=== PATIENT | male | born 1960 | race Hispanic/Latino ===

== ENCOUNTER 2018-01-11 18:06 | Emergency (ER) | payer OTHER ==
[2018-01-11 18:34] LABS: BASOPHILS % (AUTO) 1.1 % (0.0-5.0); EOSINOPHILS % (AUTO) 2.9 % (0.0-8.0); HEMATOCRIT 25.6 % (42-54); LYMPHOCYTES % (AUTO) 15.1 % (21.0-51.0); MEAN CORPUSCULAR HEMOGLOBIN 28.8 pg (27.0-33.0); MEAN CORPUSCULAR HGB CONC 33.5 g/dL (32.0-36.0); MEAN CORPUSCULAR VOLUME 86.1 fL (79-99); MONOCYTES % (AUTO) 11.1 % (3.0-13.0); NEUTROPHILS % (AUTO) 69.8 % (40.0-77.0); PLATELET COUNT (AUTO) 310 K/uL (130-400); RED BLOOD CELL COUNT(AUTO) 2.97 MIL/uL (4.50-6.20); RED CELL DISTRIBUTION WIDTH 15.8 % (11.0-15.5); WHITE BLOOD COUNT (AUTO) 9.3 K/uL (4.8-10.8)
[2018-01-11 18:55] LABS: ALBUMIN 3.2 g/dL (3.5-5.0); BILIRUBIN,TOTAL 0.3 mg/dL (0.2-1.0); POTASSIUM 4.6 mmol/L (3.5-5.1)
[2018-01-11 18:57] LABS: CREATININE 9.2 mg/dL (0.5-1.5)
[2018-01-11 21:20] LABS: CREATINE KINASE MB 2.1 ng/mL (0.5-3.6)
[2018-01-11 22:19] LABS: APPEARANCE,URINE Clear (CLEAR); BILIRUBIN,URINE Negative (NEGATIVE); COLOR,URINE Yellow (YELLOW); GLUCOSE, URINE (UA) 250 mg/dL (NEGATIVE); KETONES,URINE Negative (NEGATIVE); LEUKOCYTE ESTERASE ,URINE Negative (NEGATIVE); NITRATE,URINE Negative (NEGATIVE); OCCULT BLOOD,URINE Negative (NEGATIVE); PH,URINE 8.5 (5.0-8.0); PROTEIN,URINE 300 (NEGATIVE); UROBILINOGEN,URINE 0.2 mg/dL (0.2-1.0)
[2018-01-11 22:49] LABS: BACTERIA,URINE None Seen /HPF (None Seen); MUCUS,URINE Few LPF (None Seen); RBC,URINE None Seen /HPF (0-1); SQUAMOUS EPITHELIAL CELL,UR Few /HPF (0-2); WBC,URINE None Seen /HPF (0-1)
== END 2018-01-11 22:24 | disposition home or self-care (01) ==
LOC: EDH 18:06
DX: I12.0 Hypertensive chronic kidney disease with stage 5 chronic kidney disease or end stage renal disease (principal); E11.22 Type 2 diabetes mellitus with diabetic chronic kidney disease; N18.6 End stage renal disease; R53.1 Weakness; I25.10 Atherosclerotic heart disease of native coronary artery without angina pectoris; Z79.4 Long term (current) use of insulin; Z99.2 Dependence on renal dialysis
CPT/HCPCS: 36415; 71045; 80053; 81001; 82550; 82553; 84484; 85025; 93005

== ENCOUNTER 2018-11-25 10:50 | Inpatient (IN) | payer OTHER ==
[~2018-11-25] VITALS: Ht 162.6 cm; Wt 104.8 kg
[2018-11-25 11:43] LABS: BASOPHILS % (AUTO) 1.3 % (0.0-5.0); EOSINOPHILS % (AUTO) 1.6 % (0.0-8.0); HEMATOCRIT 36.8 % (42-54); LYMPHOCYTES % (AUTO) 10.1 % (21.0-51.0); MEAN CORPUSCULAR HEMOGLOBIN 31.8 pg (27.0-33.0); MEAN CORPUSCULAR HGB CONC 32.5 g/dL (32.0-36.0); MONOCYTES % (AUTO) 7.5 % (3.0-13.0); NEUTROPHILS % (AUTO) 79.5 % (40.0-77.0); PLATELET COUNT (AUTO) 317 K/uL (130-400); RED BLOOD CELL COUNT(AUTO) 3.76 MIL/uL (4.50-6.20); RED CELL DISTRIBUTION WIDTH 14.9 % (11.0-15.5); WHITE BLOOD COUNT (AUTO) 11.7 K/uL (4.8-10.8)
[2018-11-25 11:54] LABS: ALBUMIN 3.8 g/dL (3.5-5.0); BILIRUBIN,TOTAL 0.5 mg/dL (0.2-1.0); POTASSIUM 5.8 mmol/L (3.5-5.1); TOTAL PROTEIN, SERUM 8.9 g/dL (6.0-8.3)
[2018-11-25 11:59] LABS: CREATININE 10.3 mg/dL (0.5-1.5)
[2018-11-25] MEDS ORDERED: ZOSYN 3.375GM+NS 50ML 50 ML IV ONE (15:08)
[2018-11-25] MEDS ORDERED: VANCOMYCIN 1GM+NS 250ML 250 ML IV ONE ×2 (15:09→22:00)
[2018-11-25] MEDS ORDERED: IOHEXOL 350 MG/ML 100ML INFUS..BTL IV ONE (17:01)
[2018-11-25] MEDS ORDERED: CLONIDINE HCL 0.1 MG TABLET ONE (17:35)
[2018-11-25 20:00] VITALS: BP 109/68
--- NOTE | 2018-11-25 20:00 | NUR ---
ADMISSION. PT ADMITTED INTO ROOM 411. PT IN BED WITH AT BEDSIDE. PT AWAKE, ALERT, RESPONSIVE. PT AND FAMILY ORIENTED TO ROOM, CALL SALVADOR IN REACH, BED IN LOWEST POSITION. Addendum: 11/25/18 at 2237 by RASHEED BUSTILLO RN Amended: Links added.
[2018-11-25] MEDS ORDERED: MAG HYDROX/AL HYDROX/SIMETH ES 30 ML SUSP UDCUP PO PRN (21:00)
[2018-11-25] MEDS ORDERED: SODIUM CHLORIDE 0.9% 10 ML VIAL IVP SCH (21:00)
[2018-11-25] MEDS ORDERED: VANCOMYCIN PROTOCOL PER PHARMACY IV SCH (21:00)
[2018-11-25] MEDS ORDERED: NITROGLYCERIN 0.4 MG SL TAB SL PRN (21:00)
[2018-11-25] MEDS ORDERED: GUAIFENESIN SUGAR-FREE 100 MG/5 ML UDCUP PO PRN (21:00)
[2018-11-25] MEDS ORDERED: HYDROCODONE/ACETAMINOPHEN 5/325 MG TAB PO PRN ×2 (21:00)
[2018-11-25] MEDS ORDERED: CLONIDINE HCL 0.1 MG TABLET PO PRN (21:00)
[2018-11-25] MEDS ORDERED: DIPHENHYDRAMINE HCL 25 MG CAPSULE PO PRN (21:00)
[2018-11-25] MEDS ORDERED: ONDANSETRON HCL 4 MG/2 ML VIAL IVP PRN (21:00)
[2018-11-25] MEDS ORDERED: GUAIFENESIN-DM 200/20 MG 10 ML PO PRN (21:00)
[2018-11-25] MEDS ORDERED: DEXTROSE 50%-WATER 50 ML DISP.SYRIN IV PRN (21:00)
[2018-11-25] MEDS ORDERED: ACETAMINOPHEN 325 MG TAB PO PRN ×2 (21:00)
[2018-11-25] MEDS ORDERED: ZOLPIDEM TARTRATE 5 MG TAB PO PRN (21:00)
[2018-11-25] MEDS ORDERED: DiphenhydrAMINE HCL 50 MG/ML VIAL IVP PRN (21:00)
[2018-11-25] MEDS ORDERED: GLUCAGON 1MG KIT 1 MG ML IM PRN (21:00)
[2018-11-25] MEDS: INSULIN R PO SSI SQ SCH (22:07)
[2018-11-25] MEDS ORDERED: HYDR100T27 PO (23:27)
[2018-11-25] MEDS ORDERED: SIMV20TA6 PO (23:27)
[2018-11-25] MEDS ORDERED: PRAS10TA9 PO (23:27)
[2018-11-25] MEDS ORDERED: PHOSLOC PO (23:27)
[2018-11-25] MEDS ORDERED: PREG75 PO (23:27)
[2018-11-25] MEDS ORDERED: INSU100V SQ (23:27)
[2018-11-25] MEDS ORDERED: LOSA100T58 PO (23:27)
[2018-11-25] MEDS ORDERED: INSU100V12 SQ (23:27)
[2018-11-25] MEDS ORDERED: CARV25TA PO (23:27)
[2018-11-25 23:51] VITALS: BP 129/57
[2018-11-26] MEDS: ZOSYN 3.375GM+NS 50ML 50 ML IV SCH ×2 (03:27→16:48)
[2018-11-26 04:00] VITALS: BP 115/50
[2018-11-26] MEDS: INSULIN R PO SSI SQ SCH ×4 (06:26→21:25)
[2018-11-26 07:38] VITALS: BP 160/67
[2018-11-26] MEDS ORDERED: HEPARIN SODIUM 5000UNIT/ML 1ML VIAL IJ PRN ×2 (09:30)
[2018-11-26] MEDS ORDERED: 0.9% SODIUM CHLORIDE 1000 ML IV BAG IV PRN (09:30)
[2018-11-26] MEDS ORDERED: LIDOCAINE HCL-MPF 1% 2ML VIAL IJ PRN (09:30)
[2018-11-26] MEDS ORDERED: NITROGLYCERIN 0.4 MG SL TAB SL PRN (09:30)
[2018-11-26] MEDS ORDERED: SODIUM CHLORIDE 0.9% 1000ML 1,000 ML IV PRN (09:30)
[2018-11-26] MEDS ORDERED: ACETAMINOPHEN 325 MG TAB PO PRN (09:30)
[2018-11-26 11:20] VITALS: BP 156/80
--- NOTE | 2018-11-26 14:00 | NUR ---
Nutrition intervention: Nutrition notification for Hemodialysis diet education, wounds. Pt admitted for gangrene to left foot. Possible amputation as per MD. Pt with altered renal lab values, renal dialysis diet education provided. Pt with blindness, however verbalize understanding. Pt's and daughter at bedside whom received diet education. Pt and family members with multiple questions, all questions answered. Recommendations: Modify diet therapy with CCD 75gm for appropriate diet placement. Consult RD if pt and family member continue to have additional questions and concerns. Addendum: 11/27/18 at [address] RD Amended: Links added.
[2018-11-26 16:20] VITALS: BP 153/68
--- NOTE | 2018-11-26 17:01 | NUR ---
dialysis diet education: [facility] has provided pt with printed materials on dialysis diet. Pt blind, unable to see, printed materials provided to his and daughter who were at bedside. Printed materials provided in Pashto and Lao. Low phos, low K+ and low Na+ diet reviewed with pt and family. Pt reports being on dialysis for 10 months. Pt states he does not know who his dialysis dietitian is. [facility] has encourage pt to ask for dietitian in his dialysis center and build a professional/patient relationship with him/her. Addendum: 11/26/18 at [address] RD Amended: Links added.
--- NOTE | 2018-11-26 19:54 | NUR ---
DCP CM met with pt discussed dc plans. Pt is semi-independent prior to admission, lives at home with spouse. Uses a walker at home. Feels safe to go back home, spouse able to assist with transportation and needs as necessary. Declined placement, prefers to go back home if amp done. DC plan to home. CM to con to follow up. Addendum: 11/26/18 at 6 by TATI OJEDA LVN CM Amended: Links added.
[2018-11-26 20:08] VITALS: BP 130/73
[2018-11-26] MEDS: LACTULOSE 20 GM/30 ML UDCUP PO PRN (21:28)
[2018-11-26 23:45] VITALS: BP 146/75
[2018-11-27] VITALS (19 sets, daily range): BP systolic 125–174; BP diastolic 62–106
[2018-11-27] MEDS: ZOSYN 3.375GM+NS 50ML 50 ML IV SCH ×2 (03:54→15:52)
[2018-11-27 04:21] LABS: BASOPHILS % (AUTO) 0.9 % (0.0-5.0); EOSINOPHILS % (AUTO) 3.1 % (0.0-8.0); HEMATOCRIT 33.3 % (42-54); LYMPHOCYTES % (AUTO) 16.8 % (21.0-51.0); MEAN CORPUSCULAR HEMOGLOBIN 32.6 pg (27.0-33.0); MEAN CORPUSCULAR HGB CONC 33.5 g/dL (32.0-36.0); MEAN CORPUSCULAR VOLUME 97.5 fL (79-99); MONOCYTES % (AUTO) 9.5 % (3.0-13.0); NEUTROPHILS % (AUTO) 69.7 % (40.0-77.0); PLATELET COUNT (AUTO) 272 K/uL (130-400); RED BLOOD CELL COUNT(AUTO) 3.41 MIL/uL (4.50-6.20); RED CELL DISTRIBUTION WIDTH 14.9 % (11.0-15.5); WHITE BLOOD COUNT (AUTO) 8.6 K/uL (4.8-10.8)
[2018-11-27 05:12] LABS: ALBUMIN 3.1 g/dL (3.5-5.0); BILIRUBIN,TOTAL 0.4 mg/dL (0.2-1.0); POTASSIUM 5.1 mmol/L (3.5-5.1); TOTAL PROTEIN, SERUM 7.6 g/dL (6.0-8.3)
[2018-11-27 05:14] LABS: CREATININE 10.2 mg/dL (0.5-1.5)
[2018-11-27] MEDS: INSULIN R PO SSI SQ SCH ×4 (07:30→20:37)
[2018-11-27] MEDS ORDERED: LIDOCAINE HCL 1% 20 ML VIAL ONE (12:44)
[2018-11-27] MEDS ORDERED: BUPIVACAINE/PF 0.5% 30ML VIAL ONE (12:44)
[2018-11-27] MEDS ORDERED: MIDAZOLAM HCL 1 MG/ML 2ML VIAL ONE (17:05)
[2018-11-27] MEDS ORDERED: FENTANYL CITRATE PF 50 MCG/1 ML 2ML VIAL ONE (17:05)
[2018-11-27] MEDS ORDERED: PROPOFOL 10 MG/ML 20ML VIAL IV ONE (17:06)
[2018-11-27] MEDS: LACTULOSE 20 GM/30 ML UDCUP PO PRN (20:33)
[2018-11-27] MEDS ORDERED: SIMVASTATIN 20 MG TABLET PO SCH (21:00)
[2018-11-27] MEDS ORDERED: PREGABALIN 75 MG CAPSULE PO SCH (21:00)
[2018-11-27] MEDS: HYDRALAZINE HCL 25 MG TABLET PO SCH (21:55)
[2018-11-27] MEDS: CARVEDILOL 25 MG TABLET PO SCH (21:56)
[2018-11-28] MEDS: ZOSYN 3.375GM+NS 50ML 50 ML IV SCH ×2 (02:27→15:00)
[2018-11-28 03:25] VITALS: BP 152/92
[2018-11-28] MEDS: INSULIN R PO SSI SQ SCH ×3 (05:59→16:30)
[2018-11-28 08:00] VITALS: BP 156/68
[2018-11-28] MEDS: CALCIUM ACETATE 667 MG CAPSULE PO SCH ×3 (08:00→17:00)
[2018-11-28] MEDS ORDERED: LOSARTAN 100 MG TABLET PO SCH (09:00)
[2018-11-28] MEDS: HYDRALAZINE HCL 25 MG TABLET PO SCH ×2 (09:00→18:05)
[2018-11-28] MEDS: CARVEDILOL 25 MG TABLET PO SCH (09:00)
[2018-11-28] MEDS ORDERED: PRASUGREL HCL 10 MG TABLET PO SCH (09:00)
[2018-11-28 11:10] VITALS: BP 178/78
[2018-11-28] MEDS ORDERED: INSULIN GLARGINE 100 UNITS/ML 10 ML VIAL SQ SCH ×2 (12:00→12:09)
[2018-11-28 16:00] VITALS: BP 118/54
--- NOTE | 2018-11-28 16:40 | NUR ---
CM Note: [facility] approved and acceptance Spoke to Tanja renner/[facility], pt has approval and acceptance, will see pt tomorrow at home. Primary nurse aware. Pt safe to dc via priate car. CM to cont to follow up.
[2018-11-28] MEDS ORDERED: DIPHENHYDRAMINE HCL 25 MG CAPSULE PO PRN (18:00)
[2018-12-01] MEDS ORDERED: VANCOMYCIN 1GM+NS 250ML 250 ML IV SCH (14:00)
== END 2018-11-28 19:05 | disposition home health service (06) | DRG 255 ==
LOC: EDH 10:50 → EDHIP 14:09 → OBSVTOIN 14:09 → 4BH 18:53
PROVIDERS: ADMIT Family Medicine; ATTEND Family Medicine
PROC: 5A1D70Z Performance of Urinary Filtration, Intermittent, Less than 6 Hours Per Day (ICD-10-PCS; 2018-11-26)
PROC: 0Y6Y0Z1 Detachment at Left 5th Toe, High, Open Approach (ICD-10-PCS; principal; 2018-11-27 17:15)
PROC: 5A1D70Z Performance of Urinary Filtration, Intermittent, Less than 6 Hours Per Day (ICD-10-PCS; 2018-11-28)
DX: E11.52 Type 2 diabetes mellitus with diabetic peripheral angiopathy with gangrene (principal); N18.6 End stage renal disease; I12.0 Hypertensive chronic kidney disease with stage 5 chronic kidney disease or end stage renal disease; L03.90 Cellulitis, unspecified; L97.519 Non-pressure chronic ulcer of other part of right foot with unspecified severity; E11.621 Type 2 diabetes mellitus with foot ulcer; E11.22 Type 2 diabetes mellitus with diabetic chronic kidney disease; E11.21 Type 2 diabetes mellitus with diabetic nephropathy; E11.319 Type 2 diabetes mellitus with unspecified diabetic retinopathy without macular edema; E11.40 Type 2 diabetes mellitus with diabetic neuropathy, unspecified; E78.5 Hyperlipidemia, unspecified; H54.7 Unspecified visual loss; E11.42 Type 2 diabetes mellitus with diabetic polyneuropathy; L97.529 Non-pressure chronic ulcer of other part of left foot with unspecified severity; I25.10 Atherosclerotic heart disease of native coronary artery without angina pectoris; Z99.2 Dependence on renal dialysis
CPT/HCPCS: 36415; 73706; 80053; 82948; 85025; 87040; 87070; 87076; 87077; 87186; 87205; 88305; 88311; 90935; G0378; J1815; J2250; J2543; J2704; J3010; J3370; J3490; Q0163; Q9967

== ENCOUNTER → 2018-12-11 | Outpatient (CLI) | payer OTHER ==
[~2018-12-11] MED LIST: CARV25TA PO; HYDR100T27 PO; INSU100V SQ; INSU100V12 SQ; LOSA100T58 PO; PHOSLOC PO; PRAS10TA9 PO; PREG75 PO; SIMV20TA6 PO
[2018-12-11 13:52] VITALS: BP 181/74
== END | disposition home or self-care (01) ==
LOC: WHH 10:00
PROVIDERS: ATTEND Podiatrist Foot & Ankle Surgery
DX: T87.89 Other complications of amputation stump (principal); E11.621 Type 2 diabetes mellitus with foot ulcer; L97.522 Non-pressure chronic ulcer of other part of left foot with fat layer exposed; E11.42 Type 2 diabetes mellitus with diabetic polyneuropathy; E11.51 Type 2 diabetes mellitus with diabetic peripheral angiopathy without gangrene; E11.21 Type 2 diabetes mellitus with diabetic nephropathy; E11.22 Type 2 diabetes mellitus with diabetic chronic kidney disease; I12.0 Hypertensive chronic kidney disease with stage 5 chronic kidney disease or end stage renal disease; N18.6 End stage renal disease; I25.10 Atherosclerotic heart disease of native coronary artery without angina pectoris; E11.319 Type 2 diabetes mellitus with unspecified diabetic retinopathy without macular edema; E78.5 Hyperlipidemia, unspecified; Z99.2 Dependence on renal dialysis; Y83.5 Amputation of limb(s) as the cause of abnormal reaction of the patient, or of later complication, without mention of misadventure at the time of the procedure
CPT/HCPCS: 11042; A4450; G0463; L3260

== ENCOUNTER → 2018-12-18 | Outpatient (CLI) | payer OTHER ==
[2018-12-18 14:12] VITALS: BP 169/70
== END | disposition home or self-care (01) ==
LOC: WHH 09:55
PROVIDERS: ATTEND Podiatrist Foot & Ankle Surgery
DX: T87.89 Other complications of amputation stump (principal); E11.621 Type 2 diabetes mellitus with foot ulcer; L97.522 Non-pressure chronic ulcer of other part of left foot with fat layer exposed; E11.42 Type 2 diabetes mellitus with diabetic polyneuropathy; E11.22 Type 2 diabetes mellitus with diabetic chronic kidney disease; E11.319 Type 2 diabetes mellitus with unspecified diabetic retinopathy without macular edema; E11.52 Type 2 diabetes mellitus with diabetic peripheral angiopathy with gangrene; I96 Gangrene, not elsewhere classified; I25.10 Atherosclerotic heart disease of native coronary artery without angina pectoris; I12.0 Hypertensive chronic kidney disease with stage 5 chronic kidney disease or end stage renal disease; N18.6 End stage renal disease; E78.5 Hyperlipidemia, unspecified; H54.7 Unspecified visual loss; Z99.2 Dependence on renal dialysis; Y83.5 Amputation of limb(s) as the cause of abnormal reaction of the patient, or of later complication, without mention of misadventure at the time of the procedure
CPT/HCPCS: 11042

== ENCOUNTER → 2019-01-01 | Outpatient (CLI) | payer OTHER ==
[2019-01-01 12:56] VITALS: BP 183/81
== END | disposition home or self-care (01) ==
LOC: WHH 10:00
PROVIDERS: ATTEND Podiatrist Foot & Ankle Surgery
DX: T87.89 Other complications of amputation stump (principal); E11.621 Type 2 diabetes mellitus with foot ulcer; L97.522 Non-pressure chronic ulcer of other part of left foot with fat layer exposed; E11.21 Type 2 diabetes mellitus with diabetic nephropathy; E11.22 Type 2 diabetes mellitus with diabetic chronic kidney disease; I12.0 Hypertensive chronic kidney disease with stage 5 chronic kidney disease or end stage renal disease; N18.6 End stage renal disease; E11.42 Type 2 diabetes mellitus with diabetic polyneuropathy; E11.52 Type 2 diabetes mellitus with diabetic peripheral angiopathy with gangrene; I96 Gangrene, not elsewhere classified; E11.319 Type 2 diabetes mellitus with unspecified diabetic retinopathy without macular edema; I25.10 Atherosclerotic heart disease of native coronary artery without angina pectoris; E78.5 Hyperlipidemia, unspecified; H54.7 Unspecified visual loss; Z99.2 Dependence on renal dialysis; Y83.5 Amputation of limb(s) as the cause of abnormal reaction of the patient, or of later complication, without mention of misadventure at the time of the procedure
CPT/HCPCS: 11042; A6209

== ENCOUNTER → 2019-01-08 | Outpatient (CLI) | payer OTHER | END | disposition home or self-care (01) | LOC: WHH 13:30 | PROVIDERS: ATTEND Podiatrist Foot & Ankle Surgery | DX: E11.621 Type 2 diabetes mellitus with foot ulcer (principal); L97.521 Non-pressure chronic ulcer of other part of left foot limited to breakdown of skin; E11.22 Type 2 diabetes mellitus with diabetic chronic kidney disease; I12.0 Hypertensive chronic kidney disease with stage 5 chronic kidney disease or end stage renal disease; N18.6 End stage renal disease; E11.52 Type 2 diabetes mellitus with diabetic peripheral angiopathy with gangrene; I96 Gangrene, not elsewhere classified; E11.319 Type 2 diabetes mellitus with unspecified diabetic retinopathy without macular edema; E11.42 Type 2 diabetes mellitus with diabetic polyneuropathy; E11.21 Type 2 diabetes mellitus with diabetic nephropathy; I25.10 Atherosclerotic heart disease of native coronary artery without angina pectoris; H54.7 Unspecified visual loss; E78.5 Hyperlipidemia, unspecified; Z99.2 Dependence on renal dialysis | CPT/HCPCS: 93923; A6209; G0463 ==

== ENCOUNTER → 2019-01-15 | Outpatient (CLI) | payer OTHER ==
[~2019-01-15] MED LIST changes: +LIDOCAINE HCL 2% JELLY 5 ML TP ONE
[2019-01-15 14:12] VITALS: BP 123/63
== END | disposition home or self-care (01) ==
LOC: WHH 10:00
PROVIDERS: ATTEND Podiatrist Foot & Ankle Surgery
DX: T87.89 Other complications of amputation stump (principal); E11.621 Type 2 diabetes mellitus with foot ulcer; L97.522 Non-pressure chronic ulcer of other part of left foot with fat layer exposed; E11.22 Type 2 diabetes mellitus with diabetic chronic kidney disease; I12.0 Hypertensive chronic kidney disease with stage 5 chronic kidney disease or end stage renal disease; N18.6 End stage renal disease; E11.21 Type 2 diabetes mellitus with diabetic nephropathy; E11.42 Type 2 diabetes mellitus with diabetic polyneuropathy; E11.52 Type 2 diabetes mellitus with diabetic peripheral angiopathy with gangrene; I96 Gangrene, not elsewhere classified; I25.10 Atherosclerotic heart disease of native coronary artery without angina pectoris; E78.5 Hyperlipidemia, unspecified; Z99.2 Dependence on renal dialysis; Y83.5 Amputation of limb(s) as the cause of abnormal reaction of the patient, or of later complication, without mention of misadventure at the time of the procedure
CPT/HCPCS: 11042; 87070; 87077 ×2; 87186 ×2; A6248

== ENCOUNTER → 2019-01-22 | Outpatient (CLI) | payer OTHER ==
[~2019-01-22] MED LIST changes: -LIDOCAINE HCL 2% JELLY 5 ML TP ONE
[2019-01-22 15:10] VITALS: BP 138/70
== END | disposition home or self-care (01) ==
LOC: WHH 09:45
PROVIDERS: ATTEND Podiatrist Foot & Ankle Surgery
DX: E11.621 Type 2 diabetes mellitus with foot ulcer (principal); L97.522 Non-pressure chronic ulcer of other part of left foot with fat layer exposed; E11.22 Type 2 diabetes mellitus with diabetic chronic kidney disease; I12.0 Hypertensive chronic kidney disease with stage 5 chronic kidney disease or end stage renal disease; N18.6 End stage renal disease; E11.21 Type 2 diabetes mellitus with diabetic nephropathy; E11.42 Type 2 diabetes mellitus with diabetic polyneuropathy; E11.52 Type 2 diabetes mellitus with diabetic peripheral angiopathy with gangrene; I96 Gangrene, not elsewhere classified; I25.10 Atherosclerotic heart disease of native coronary artery without angina pectoris; H54.7 Unspecified visual loss; Z99.2 Dependence on renal dialysis
CPT/HCPCS: 11042; A6248

== ENCOUNTER → 2019-01-29 | Outpatient (CLI) | payer OTHER ==
[2019-01-29 11:55] LABS: BASOPHILS % (AUTO) 0.5 % (0.0-5.0); HEMATOCRIT 32.9 % (42-54); LYMPHOCYTES % (AUTO) 14.7 % (21.0-51.0); MEAN CORPUSCULAR HEMOGLOBIN 30.2 pg (27.0-33.0); MEAN CORPUSCULAR HGB CONC 32.2 g/dL (32.0-36.0); MEAN CORPUSCULAR VOLUME 93.8 fL (79-99); MONOCYTES % (AUTO) 9.6 % (3.0-13.0); NEUTROPHILS % (AUTO) 73.2 % (40.0-77.0); PLATELET COUNT (AUTO) 290 K/uL (130-400); RED CELL DISTRIBUTION WIDTH 16.1 % (11.0-15.5); WHITE BLOOD COUNT (AUTO) 10.1 K/uL (4.8-10.8)
[2019-01-29 12:04] LABS: CREATININE 6.8 mg/dL (0.5-1.5); CRP QUANTITATIVE 31.3 mg/L (0.00-9.0); POTASSIUM 4.3 mmol/L (3.5-5.1)
[2019-01-29 13:01] LABS: ERYTHROCYTE SEDIMENTATION RATE 105 MM/HR (0-20)
[2019-01-29 13:40] VITALS: BP 133/68
== END | disposition home or self-care (01) ==
LOC: WHH 10:00
PROVIDERS: ATTEND Podiatrist Foot & Ankle Surgery
DX: T87.89 Other complications of amputation stump (principal); E11.621 Type 2 diabetes mellitus with foot ulcer; L97.522 Non-pressure chronic ulcer of other part of left foot with fat layer exposed; E11.22 Type 2 diabetes mellitus with diabetic chronic kidney disease; N18.6 End stage renal disease; I12.0 Hypertensive chronic kidney disease with stage 5 chronic kidney disease or end stage renal disease; E11.52 Type 2 diabetes mellitus with diabetic peripheral angiopathy with gangrene; I96 Gangrene, not elsewhere classified; E11.319 Type 2 diabetes mellitus with unspecified diabetic retinopathy without macular edema; E11.42 Type 2 diabetes mellitus with diabetic polyneuropathy; E11.21 Type 2 diabetes mellitus with diabetic nephropathy; E78.5 Hyperlipidemia, unspecified; I25.10 Atherosclerotic heart disease of native coronary artery without angina pectoris; H54.7 Unspecified visual loss; Z99.2 Dependence on renal dialysis; Y83.5 Amputation of limb(s) as the cause of abnormal reaction of the patient, or of later complication, without mention of misadventure at the time of the procedure
CPT/HCPCS: 11042; 36415; 71046; 80048; 85025; 85651; 86140; A6248

== ENCOUNTER → 2019-02-03 | Outpatient (CLI) | payer OTHER ==
[2019-02-03 10:45] VITALS: BP 180/92
== END | disposition home or self-care (01) ==
LOC: WHH 10:30
PROVIDERS: ATTEND Podiatrist Foot & Ankle Surgery
DX: E11.621 Type 2 diabetes mellitus with foot ulcer (principal); L97.521 Non-pressure chronic ulcer of other part of left foot limited to breakdown of skin; E11.22 Type 2 diabetes mellitus with diabetic chronic kidney disease; I12.0 Hypertensive chronic kidney disease with stage 5 chronic kidney disease or end stage renal disease; N18.6 End stage renal disease; E11.52 Type 2 diabetes mellitus with diabetic peripheral angiopathy with gangrene; I96 Gangrene, not elsewhere classified; E11.319 Type 2 diabetes mellitus with unspecified diabetic retinopathy without macular edema; E11.42 Type 2 diabetes mellitus with diabetic polyneuropathy; E11.21 Type 2 diabetes mellitus with diabetic nephropathy; I25.10 Atherosclerotic heart disease of native coronary artery without angina pectoris; E78.5 Hyperlipidemia, unspecified; H54.7 Unspecified visual loss; Z99.2 Dependence on renal dialysis
CPT/HCPCS: 93922

== ENCOUNTER → 2019-02-05 | Outpatient (CLI) | payer OTHER ==
[2019-02-05 14:23] VITALS: BP 150/64
== END | disposition home or self-care (01) ==
LOC: WHH 09:45
PROVIDERS: ATTEND Podiatrist Foot & Ankle Surgery
DX: T87.89 Other complications of amputation stump (principal); E11.621 Type 2 diabetes mellitus with foot ulcer; L97.522 Non-pressure chronic ulcer of other part of left foot with fat layer exposed; E11.22 Type 2 diabetes mellitus with diabetic chronic kidney disease; I12.0 Hypertensive chronic kidney disease with stage 5 chronic kidney disease or end stage renal disease; N18.6 End stage renal disease; E11.51 Type 2 diabetes mellitus with diabetic peripheral angiopathy without gangrene; E11.21 Type 2 diabetes mellitus with diabetic nephropathy; E11.42 Type 2 diabetes mellitus with diabetic polyneuropathy; E11.319 Type 2 diabetes mellitus with unspecified diabetic retinopathy without macular edema; E11.52 Type 2 diabetes mellitus with diabetic peripheral angiopathy with gangrene; I25.10 Atherosclerotic heart disease of native coronary artery without angina pectoris; I96 Gangrene, not elsewhere classified; H54.7 Unspecified visual loss; E78.5 Hyperlipidemia, unspecified; Z99.2 Dependence on renal dialysis; Y83.5 Amputation of limb(s) as the cause of abnormal reaction of the patient, or of later complication, without mention of misadventure at the time of the procedure
CPT/HCPCS: 11042; 87070; 87077; 87186

== ENCOUNTER → 2019-02-07 | Outpatient (CLI) | payer OTHER | END | disposition home or self-care (01) | LOC: RAH 13:30 | PROVIDERS: ATTEND Surgery | DX: E11.621 Type 2 diabetes mellitus with foot ulcer (principal); L97.529 Non-pressure chronic ulcer of other part of left foot with unspecified severity | CPT/HCPCS: 73630; 93005 ==

== ENCOUNTER → 2019-02-12 | Outpatient (CLI) | payer OTHER ==
[~2019-02-12] MED LIST changes: +MIDAZOLAM HCL 1 MG/ML 2ML VIAL ONE; +PROPOFOL 10 MG/ML 20ML VIAL IV ONE
[2019-02-12 14:57] VITALS: BP 111/44
== END | disposition home or self-care (01) ==
LOC: WHH 09:45
PROVIDERS: ATTEND Podiatrist Foot & Ankle Surgery
DX: E11.621 Type 2 diabetes mellitus with foot ulcer (principal); L97.522 Non-pressure chronic ulcer of other part of left foot with fat layer exposed; E11.22 Type 2 diabetes mellitus with diabetic chronic kidney disease; I12.0 Hypertensive chronic kidney disease with stage 5 chronic kidney disease or end stage renal disease; N18.6 End stage renal disease; E11.21 Type 2 diabetes mellitus with diabetic nephropathy; E11.42 Type 2 diabetes mellitus with diabetic polyneuropathy; E11.319 Type 2 diabetes mellitus with unspecified diabetic retinopathy without macular edema; E11.52 Type 2 diabetes mellitus with diabetic peripheral angiopathy with gangrene; I25.10 Atherosclerotic heart disease of native coronary artery without angina pectoris; I96 Gangrene, not elsewhere classified; H54.7 Unspecified visual loss; E78.5 Hyperlipidemia, unspecified; Z99.2 Dependence on renal dialysis; Y83.5 Amputation of limb(s) as the cause of abnormal reaction of the patient, or of later complication, without mention of misadventure at the time of the procedure
CPT/HCPCS: 11044; 88304; 88311

== ENCOUNTER → 2019-02-19 | Outpatient (CLI) | payer OTHER ==
[~2019-02-19] MED LIST changes: +LIDOCAINE/PRILOCAINE CREAM 5GM TUBE TP ONE; -MIDAZOLAM HCL 1 MG/ML 2ML VIAL ONE; -PROPOFOL 10 MG/ML 20ML VIAL IV ONE
[2019-02-19 14:07] VITALS: BP 127/50
== END | disposition home or self-care (01) ==
LOC: WHH 10:45
PROVIDERS: ATTEND Podiatrist Foot & Ankle Surgery
DX: T87.89 Other complications of amputation stump (principal); E11.621 Type 2 diabetes mellitus with foot ulcer; L97.521 Non-pressure chronic ulcer of other part of left foot limited to breakdown of skin; E11.22 Type 2 diabetes mellitus with diabetic chronic kidney disease; I12.0 Hypertensive chronic kidney disease with stage 5 chronic kidney disease or end stage renal disease; N18.6 End stage renal disease; E11.69 Type 2 diabetes mellitus with other specified complication; M86.172 Other acute osteomyelitis, left ankle and foot; E11.52 Type 2 diabetes mellitus with diabetic peripheral angiopathy with gangrene; I96 Gangrene, not elsewhere classified; E11.319 Type 2 diabetes mellitus with unspecified diabetic retinopathy without macular edema; E11.42 Type 2 diabetes mellitus with diabetic polyneuropathy; E11.21 Type 2 diabetes mellitus with diabetic nephropathy; I25.10 Atherosclerotic heart disease of native coronary artery without angina pectoris; H54.7 Unspecified visual loss; E78.5 Hyperlipidemia, unspecified; Y83.5 Amputation of limb(s) as the cause of abnormal reaction of the patient, or of later complication, without mention of misadventure at the time of the procedure
CPT/HCPCS: A6209; G0463; J3490

== ENCOUNTER → 2019-02-26 | Outpatient (CLI) | payer OTHER ==
[~2019-02-26] MED LIST changes: -LIDOCAINE/PRILOCAINE CREAM 5GM TUBE TP ONE
[2019-02-26 14:33] VITALS: BP 164/72
== END | disposition home or self-care (01) ==
LOC: WHH 10:00
PROVIDERS: ATTEND Podiatrist Foot & Ankle Surgery
DX: T87.89 Other complications of amputation stump (principal); E11.621 Type 2 diabetes mellitus with foot ulcer; L97.522 Non-pressure chronic ulcer of other part of left foot with fat layer exposed; E11.22 Type 2 diabetes mellitus with diabetic chronic kidney disease; N18.6 End stage renal disease; I12.0 Hypertensive chronic kidney disease with stage 5 chronic kidney disease or end stage renal disease; E11.69 Type 2 diabetes mellitus with other specified complication; M86.172 Other acute osteomyelitis, left ankle and foot; E11.52 Type 2 diabetes mellitus with diabetic peripheral angiopathy with gangrene; I96 Gangrene, not elsewhere classified; E11.319 Type 2 diabetes mellitus with unspecified diabetic retinopathy without macular edema; E11.21 Type 2 diabetes mellitus with diabetic nephropathy; E11.42 Type 2 diabetes mellitus with diabetic polyneuropathy; I25.10 Atherosclerotic heart disease of native coronary artery without angina pectoris; H54.7 Unspecified visual loss; E78.5 Hyperlipidemia, unspecified; Y83.5 Amputation of limb(s) as the cause of abnormal reaction of the patient, or of later complication, without mention of misadventure at the time of the procedure
CPT/HCPCS: 11042; A6209

== ENCOUNTER → 2019-03-04 | Outpatient (CLI) | payer OTHER ==
[2019-03-04 11:57] VITALS: BP 137/61
[2019-03-04 11:58] VITALS: BP 143/72
== END | disposition home or self-care (01) ==
LOC: WHH 08:45
PROVIDERS: ATTEND Surgery
DX: E11.621 Type 2 diabetes mellitus with foot ulcer (principal); L97.521 Non-pressure chronic ulcer of other part of left foot limited to breakdown of skin; E11.22 Type 2 diabetes mellitus with diabetic chronic kidney disease; I12.0 Hypertensive chronic kidney disease with stage 5 chronic kidney disease or end stage renal disease; N18.6 End stage renal disease; E11.69 Type 2 diabetes mellitus with other specified complication; M86.172 Other acute osteomyelitis, left ankle and foot; E11.52 Type 2 diabetes mellitus with diabetic peripheral angiopathy with gangrene; I96 Gangrene, not elsewhere classified; E11.319 Type 2 diabetes mellitus with unspecified diabetic retinopathy without macular edema; E11.21 Type 2 diabetes mellitus with diabetic nephropathy; E11.42 Type 2 diabetes mellitus with diabetic polyneuropathy; I25.10 Atherosclerotic heart disease of native coronary artery without angina pectoris; H54.7 Unspecified visual loss; E78.5 Hyperlipidemia, unspecified
CPT/HCPCS: 82948 ×2; G0277

== ENCOUNTER → 2019-03-05 | Outpatient (CLI) | payer OTHER ==
[2019-03-05 11:54] VITALS: BP_SYST 161; BP_SYST 165; BP_DIAS 70; BP_DIAS 80
== END | disposition home or self-care (01) ==
LOC: WHH 07:40
PROVIDERS: ATTEND Podiatrist Foot & Ankle Surgery
DX: E11.621 Type 2 diabetes mellitus with foot ulcer (principal); L97.521 Non-pressure chronic ulcer of other part of left foot limited to breakdown of skin; E11.22 Type 2 diabetes mellitus with diabetic chronic kidney disease; I12.0 Hypertensive chronic kidney disease with stage 5 chronic kidney disease or end stage renal disease; E11.69 Type 2 diabetes mellitus with other specified complication; M86.172 Other acute osteomyelitis, left ankle and foot; E11.52 Type 2 diabetes mellitus with diabetic peripheral angiopathy with gangrene; I96 Gangrene, not elsewhere classified; E11.319 Type 2 diabetes mellitus with unspecified diabetic retinopathy without macular edema; E11.21 Type 2 diabetes mellitus with diabetic nephropathy; E11.42 Type 2 diabetes mellitus with diabetic polyneuropathy; I25.10 Atherosclerotic heart disease of native coronary artery without angina pectoris; H54.7 Unspecified visual loss; E78.5 Hyperlipidemia, unspecified
CPT/HCPCS: 82948 ×2; A6209; G0277

== ENCOUNTER → 2019-03-06 | Outpatient (CLI) | payer OTHER ==
[2019-03-06 13:52] VITALS: BP 163/75
[2019-03-06 13:53] VITALS: BP 138/68
== END | disposition home or self-care (01) ==
LOC: WHH 08:50
PROVIDERS: ATTEND Surgery
DX: E11.621 Type 2 diabetes mellitus with foot ulcer (principal); L97.521 Non-pressure chronic ulcer of other part of left foot limited to breakdown of skin; E11.22 Type 2 diabetes mellitus with diabetic chronic kidney disease; I12.0 Hypertensive chronic kidney disease with stage 5 chronic kidney disease or end stage renal disease; E11.69 Type 2 diabetes mellitus with other specified complication; M86.172 Other acute osteomyelitis, left ankle and foot; E11.52 Type 2 diabetes mellitus with diabetic peripheral angiopathy with gangrene; I96 Gangrene, not elsewhere classified; E11.319 Type 2 diabetes mellitus with unspecified diabetic retinopathy without macular edema; E11.21 Type 2 diabetes mellitus with diabetic nephropathy; E11.42 Type 2 diabetes mellitus with diabetic polyneuropathy; I25.10 Atherosclerotic heart disease of native coronary artery without angina pectoris; H54.7 Unspecified visual loss; E78.5 Hyperlipidemia, unspecified
CPT/HCPCS: 82948 ×2; G0277 ×2

== ENCOUNTER → 2019-03-07 | Outpatient (CLI) | payer OTHER ==
[2019-03-07 11:58] VITALS: BP 156/68
[2019-03-07 11:59] VITALS: BP 151/54
== END | disposition home or self-care (01) ==
LOC: WHH 09:00
PROVIDERS: ATTEND Surgery
DX: E11.621 Type 2 diabetes mellitus with foot ulcer (principal); L97.521 Non-pressure chronic ulcer of other part of left foot limited to breakdown of skin; E11.22 Type 2 diabetes mellitus with diabetic chronic kidney disease; I12.0 Hypertensive chronic kidney disease with stage 5 chronic kidney disease or end stage renal disease; E11.69 Type 2 diabetes mellitus with other specified complication; M86.172 Other acute osteomyelitis, left ankle and foot; E11.52 Type 2 diabetes mellitus with diabetic peripheral angiopathy with gangrene; I96 Gangrene, not elsewhere classified; E11.319 Type 2 diabetes mellitus with unspecified diabetic retinopathy without macular edema; E11.21 Type 2 diabetes mellitus with diabetic nephropathy; E11.42 Type 2 diabetes mellitus with diabetic polyneuropathy; I25.10 Atherosclerotic heart disease of native coronary artery without angina pectoris; H54.7 Unspecified visual loss; E78.5 Hyperlipidemia, unspecified
CPT/HCPCS: 82948 ×2; G0277

== ENCOUNTER → 2019-03-10 | Outpatient (CLI) | payer OTHER ==
[2019-03-10 12:07] VITALS: BP 166/72
[2019-03-10 12:08] VITALS: BP 115/82
== END | disposition home or self-care (01) ==
LOC: WHH 09:00
PROVIDERS: ATTEND Surgery
DX: E11.621 Type 2 diabetes mellitus with foot ulcer (principal); L97.521 Non-pressure chronic ulcer of other part of left foot limited to breakdown of skin; E11.22 Type 2 diabetes mellitus with diabetic chronic kidney disease; I12.0 Hypertensive chronic kidney disease with stage 5 chronic kidney disease or end stage renal disease; E11.69 Type 2 diabetes mellitus with other specified complication; M86.172 Other acute osteomyelitis, left ankle and foot; E11.52 Type 2 diabetes mellitus with diabetic peripheral angiopathy with gangrene; I96 Gangrene, not elsewhere classified; E11.319 Type 2 diabetes mellitus with unspecified diabetic retinopathy without macular edema; E11.21 Type 2 diabetes mellitus with diabetic nephropathy; E11.42 Type 2 diabetes mellitus with diabetic polyneuropathy; I25.10 Atherosclerotic heart disease of native coronary artery without angina pectoris; H54.7 Unspecified visual loss; E78.5 Hyperlipidemia, unspecified
CPT/HCPCS: 82948; A6209; G0277

== ENCOUNTER → 2019-03-11 | Outpatient (CLI) | payer OTHER ==
[2019-03-11 12:59] VITALS: BP 131/61
[2019-03-11 13:00] VITALS: BP 113/70
== END | disposition home or self-care (01) ==
LOC: WHH 09:00
PROVIDERS: ATTEND Surgery
DX: E11.621 Type 2 diabetes mellitus with foot ulcer (principal); L97.521 Non-pressure chronic ulcer of other part of left foot limited to breakdown of skin; E11.22 Type 2 diabetes mellitus with diabetic chronic kidney disease; I12.0 Hypertensive chronic kidney disease with stage 5 chronic kidney disease or end stage renal disease; N18.6 End stage renal disease; E11.69 Type 2 diabetes mellitus with other specified complication; M86.172 Other acute osteomyelitis, left ankle and foot; E11.52 Type 2 diabetes mellitus with diabetic peripheral angiopathy with gangrene; I96 Gangrene, not elsewhere classified; E11.319 Type 2 diabetes mellitus with unspecified diabetic retinopathy without macular edema; E11.21 Type 2 diabetes mellitus with diabetic nephropathy; E11.42 Type 2 diabetes mellitus with diabetic polyneuropathy; I25.10 Atherosclerotic heart disease of native coronary artery without angina pectoris; H54.7 Unspecified visual loss; E78.5 Hyperlipidemia, unspecified
CPT/HCPCS: 82948 ×2; G0277

== ENCOUNTER → 2019-03-12 | Outpatient (CLI) | payer OTHER ==
[2019-03-12 10:47] VITALS: BP 149/80
[2019-03-12 10:49] VITALS: BP 171/80
== END | disposition home or self-care (01) ==
LOC: WHH 07:30
PROVIDERS: ATTEND Podiatrist Foot & Ankle Surgery
DX: E11.621 Type 2 diabetes mellitus with foot ulcer (principal); L97.521 Non-pressure chronic ulcer of other part of left foot limited to breakdown of skin; E11.22 Type 2 diabetes mellitus with diabetic chronic kidney disease; I12.0 Hypertensive chronic kidney disease with stage 5 chronic kidney disease or end stage renal disease; N18.6 End stage renal disease; E11.69 Type 2 diabetes mellitus with other specified complication; M86.172 Other acute osteomyelitis, left ankle and foot; E11.52 Type 2 diabetes mellitus with diabetic peripheral angiopathy with gangrene; I96 Gangrene, not elsewhere classified; E11.319 Type 2 diabetes mellitus with unspecified diabetic retinopathy without macular edema; E11.21 Type 2 diabetes mellitus with diabetic nephropathy; E11.42 Type 2 diabetes mellitus with diabetic polyneuropathy; I25.10 Atherosclerotic heart disease of native coronary artery without angina pectoris; H54.7 Unspecified visual loss; E78.5 Hyperlipidemia, unspecified
CPT/HCPCS: 82948 ×2; A6209; G0277

== ENCOUNTER → 2019-03-13 | Outpatient (CLI) | payer OTHER ==
[2019-03-13 11:51] VITALS: BP 136/68
[2019-03-13 11:52] VITALS: BP 150/70
== END | disposition home or self-care (01) ==
LOC: WHH 09:00
PROVIDERS: ATTEND Surgery
DX: E11.621 Type 2 diabetes mellitus with foot ulcer (principal); L97.521 Non-pressure chronic ulcer of other part of left foot limited to breakdown of skin; E11.22 Type 2 diabetes mellitus with diabetic chronic kidney disease; I12.0 Hypertensive chronic kidney disease with stage 5 chronic kidney disease or end stage renal disease; N18.6 End stage renal disease; E11.69 Type 2 diabetes mellitus with other specified complication; M86.172 Other acute osteomyelitis, left ankle and foot; E11.52 Type 2 diabetes mellitus with diabetic peripheral angiopathy with gangrene; I96 Gangrene, not elsewhere classified; E11.319 Type 2 diabetes mellitus with unspecified diabetic retinopathy without macular edema; E11.21 Type 2 diabetes mellitus with diabetic nephropathy; E11.42 Type 2 diabetes mellitus with diabetic polyneuropathy; I25.10 Atherosclerotic heart disease of native coronary artery without angina pectoris; H54.7 Unspecified visual loss; E78.5 Hyperlipidemia, unspecified
CPT/HCPCS: 82948 ×2; G0277

== ENCOUNTER → 2019-03-14 | Outpatient (CLI) | payer OTHER ==
[2019-03-14 11:47] VITALS: BP_SYST 137; BP_DIAS 54; BP_DIAS 90
== END | disposition home or self-care (01) ==
LOC: WHH 08:45
PROVIDERS: ATTEND Surgery
DX: E11.621 Type 2 diabetes mellitus with foot ulcer (principal); L97.521 Non-pressure chronic ulcer of other part of left foot limited to breakdown of skin; E11.22 Type 2 diabetes mellitus with diabetic chronic kidney disease; I12.0 Hypertensive chronic kidney disease with stage 5 chronic kidney disease or end stage renal disease; N18.6 End stage renal disease; E11.69 Type 2 diabetes mellitus with other specified complication; M86.172 Other acute osteomyelitis, left ankle and foot; E11.52 Type 2 diabetes mellitus with diabetic peripheral angiopathy with gangrene; I96 Gangrene, not elsewhere classified; E11.319 Type 2 diabetes mellitus with unspecified diabetic retinopathy without macular edema; E11.21 Type 2 diabetes mellitus with diabetic nephropathy; E11.42 Type 2 diabetes mellitus with diabetic polyneuropathy; I25.10 Atherosclerotic heart disease of native coronary artery without angina pectoris; H54.7 Unspecified visual loss; E78.5 Hyperlipidemia, unspecified
CPT/HCPCS: 82948 ×2; A6209; G0277

== ENCOUNTER → 2019-03-17 | Outpatient (CLI) | payer OTHER ==
[2019-03-17 13:12] VITALS: BP 170/68
[2019-03-17 13:13] VITALS: BP 142/70
== END | disposition home or self-care (01) ==
LOC: WHH 09:00
PROVIDERS: ATTEND Surgery
DX: E11.621 Type 2 diabetes mellitus with foot ulcer (principal); L97.521 Non-pressure chronic ulcer of other part of left foot limited to breakdown of skin; E11.22 Type 2 diabetes mellitus with diabetic chronic kidney disease; I12.0 Hypertensive chronic kidney disease with stage 5 chronic kidney disease or end stage renal disease; N18.6 End stage renal disease; E11.69 Type 2 diabetes mellitus with other specified complication; M86.172 Other acute osteomyelitis, left ankle and foot; E11.52 Type 2 diabetes mellitus with diabetic peripheral angiopathy with gangrene; I96 Gangrene, not elsewhere classified; E11.319 Type 2 diabetes mellitus with unspecified diabetic retinopathy without macular edema; E11.21 Type 2 diabetes mellitus with diabetic nephropathy; E11.42 Type 2 diabetes mellitus with diabetic polyneuropathy; I25.10 Atherosclerotic heart disease of native coronary artery without angina pectoris; H54.7 Unspecified visual loss; E78.5 Hyperlipidemia, unspecified
CPT/HCPCS: 82948 ×2; A6209; G0277

== ENCOUNTER → 2019-03-18 | Outpatient (CLI) | payer OTHER ==
[2019-03-18 12:43] VITALS: BP_SYST 120; BP_SYST 150; BP_DIAS 55; BP_DIAS 70
== END | disposition home or self-care (01) ==
LOC: WHH 08:45
PROVIDERS: ATTEND Surgery
DX: E11.621 Type 2 diabetes mellitus with foot ulcer (principal); L97.521 Non-pressure chronic ulcer of other part of left foot limited to breakdown of skin; E11.22 Type 2 diabetes mellitus with diabetic chronic kidney disease; I12.0 Hypertensive chronic kidney disease with stage 5 chronic kidney disease or end stage renal disease; N18.6 End stage renal disease; E11.69 Type 2 diabetes mellitus with other specified complication; M86.172 Other acute osteomyelitis, left ankle and foot; E11.52 Type 2 diabetes mellitus with diabetic peripheral angiopathy with gangrene; I96 Gangrene, not elsewhere classified; E11.319 Type 2 diabetes mellitus with unspecified diabetic retinopathy without macular edema; E11.21 Type 2 diabetes mellitus with diabetic nephropathy; E11.42 Type 2 diabetes mellitus with diabetic polyneuropathy; I25.10 Atherosclerotic heart disease of native coronary artery without angina pectoris; H54.7 Unspecified visual loss; E78.5 Hyperlipidemia, unspecified; Z99.2 Dependence on renal dialysis
CPT/HCPCS: 82948 ×2; G0277

== ENCOUNTER → 2019-03-19 | Outpatient (CLI) | payer OTHER ==
[2019-03-19 12:03] VITALS: BP 157/67
[2019-03-19 12:05] VITALS: BP 140/72
== END | disposition home or self-care (01) ==
LOC: WHH 08:00
PROVIDERS: ATTEND Podiatrist Foot & Ankle Surgery
DX: T87.89 Other complications of amputation stump (principal); L97.522 Non-pressure chronic ulcer of other part of left foot with fat layer exposed; E11.22 Type 2 diabetes mellitus with diabetic chronic kidney disease; I12.0 Hypertensive chronic kidney disease with stage 5 chronic kidney disease or end stage renal disease; N18.6 End stage renal disease; E11.69 Type 2 diabetes mellitus with other specified complication; M86.172 Other acute osteomyelitis, left ankle and foot; E11.52 Type 2 diabetes mellitus with diabetic peripheral angiopathy with gangrene; I96 Gangrene, not elsewhere classified; E11.319 Type 2 diabetes mellitus with unspecified diabetic retinopathy without macular edema; E11.21 Type 2 diabetes mellitus with diabetic nephropathy; E11.42 Type 2 diabetes mellitus with diabetic polyneuropathy; I25.10 Atherosclerotic heart disease of native coronary artery without angina pectoris; H54.7 Unspecified visual loss; E78.5 Hyperlipidemia, unspecified; Y83.5 Amputation of limb(s) as the cause of abnormal reaction of the patient, or of later complication, without mention of misadventure at the time of the procedure
CPT/HCPCS: 11042; 82948 ×2; G0277

== ENCOUNTER → 2019-03-20 | Outpatient (CLI) | payer OTHER ==
[2019-03-20 14:13] VITALS: BP 127/58
[2019-03-20 14:15] VITALS: BP 144/66
== END | disposition home or self-care (01) ==
LOC: WHH 09:00
PROVIDERS: ATTEND Surgery
DX: E11.621 Type 2 diabetes mellitus with foot ulcer (principal); L97.521 Non-pressure chronic ulcer of other part of left foot limited to breakdown of skin; E11.22 Type 2 diabetes mellitus with diabetic chronic kidney disease; I12.0 Hypertensive chronic kidney disease with stage 5 chronic kidney disease or end stage renal disease; N18.6 End stage renal disease; E11.69 Type 2 diabetes mellitus with other specified complication; M86.172 Other acute osteomyelitis, left ankle and foot; E11.52 Type 2 diabetes mellitus with diabetic peripheral angiopathy with gangrene; I96 Gangrene, not elsewhere classified; E11.319 Type 2 diabetes mellitus with unspecified diabetic retinopathy without macular edema; E11.21 Type 2 diabetes mellitus with diabetic nephropathy; E11.42 Type 2 diabetes mellitus with diabetic polyneuropathy; I25.10 Atherosclerotic heart disease of native coronary artery without angina pectoris; H54.7 Unspecified visual loss; E78.5 Hyperlipidemia, unspecified
CPT/HCPCS: 82948 ×2; G0277

== ENCOUNTER → 2019-03-21 | Outpatient (CLI) | payer OTHER ==
[2019-03-21 12:01] VITALS: BP 180/70
== END | disposition home or self-care (01) ==
LOC: WHH 09:00
PROVIDERS: ATTEND Surgery
DX: T87.89 Other complications of amputation stump (principal); E11.621 Type 2 diabetes mellitus with foot ulcer; L97.521 Non-pressure chronic ulcer of other part of left foot limited to breakdown of skin; E11.22 Type 2 diabetes mellitus with diabetic chronic kidney disease; I12.0 Hypertensive chronic kidney disease with stage 5 chronic kidney disease or end stage renal disease; N18.6 End stage renal disease; E11.69 Type 2 diabetes mellitus with other specified complication; M86.172 Other acute osteomyelitis, left ankle and foot; E11.52 Type 2 diabetes mellitus with diabetic peripheral angiopathy with gangrene; I96 Gangrene, not elsewhere classified; E11.319 Type 2 diabetes mellitus with unspecified diabetic retinopathy without macular edema; E11.21 Type 2 diabetes mellitus with diabetic nephropathy; E11.42 Type 2 diabetes mellitus with diabetic polyneuropathy; I25.10 Atherosclerotic heart disease of native coronary artery without angina pectoris; H54.7 Unspecified visual loss; E78.5 Hyperlipidemia, unspecified; Y83.5 Amputation of limb(s) as the cause of abnormal reaction of the patient, or of later complication, without mention of misadventure at the time of the procedure
CPT/HCPCS: 82948 ×2; G0277

== ENCOUNTER → 2019-03-24 | Outpatient (CLI) | payer OTHER ==
[2019-03-24 12:20] VITALS: BP 163/72
[2019-03-24 12:24] VITALS: BP 170/68
== END | disposition home or self-care (01) ==
LOC: WHH 09:00
PROVIDERS: ATTEND Surgery
DX: T87.89 Other complications of amputation stump (principal); E11.621 Type 2 diabetes mellitus with foot ulcer; L97.521 Non-pressure chronic ulcer of other part of left foot limited to breakdown of skin; E11.22 Type 2 diabetes mellitus with diabetic chronic kidney disease; I12.0 Hypertensive chronic kidney disease with stage 5 chronic kidney disease or end stage renal disease; N18.6 End stage renal disease; E11.69 Type 2 diabetes mellitus with other specified complication; M86.172 Other acute osteomyelitis, left ankle and foot; E11.52 Type 2 diabetes mellitus with diabetic peripheral angiopathy with gangrene; I96 Gangrene, not elsewhere classified; E11.319 Type 2 diabetes mellitus with unspecified diabetic retinopathy without macular edema; E11.21 Type 2 diabetes mellitus with diabetic nephropathy; E11.42 Type 2 diabetes mellitus with diabetic polyneuropathy; I25.10 Atherosclerotic heart disease of native coronary artery without angina pectoris; H54.7 Unspecified visual loss; E78.5 Hyperlipidemia, unspecified; Y83.5 Amputation of limb(s) as the cause of abnormal reaction of the patient, or of later complication, without mention of misadventure at the time of the procedure
CPT/HCPCS: 82948 ×2; G0277

== ENCOUNTER → 2019-03-25 | Outpatient (CLI) | payer OTHER ==
[2019-03-25 12:51] VITALS: BP 182/78
[2019-03-25 12:52] VITALS: BP 161/90
== END | disposition home or self-care (01) ==
LOC: WHH 09:00
PROVIDERS: ATTEND Surgery
DX: E11.621 Type 2 diabetes mellitus with foot ulcer (principal); L97.521 Non-pressure chronic ulcer of other part of left foot limited to breakdown of skin; E11.22 Type 2 diabetes mellitus with diabetic chronic kidney disease; I12.0 Hypertensive chronic kidney disease with stage 5 chronic kidney disease or end stage renal disease; N18.6 End stage renal disease; E11.69 Type 2 diabetes mellitus with other specified complication; M86.172 Other acute osteomyelitis, left ankle and foot; E11.52 Type 2 diabetes mellitus with diabetic peripheral angiopathy with gangrene; I96 Gangrene, not elsewhere classified; E11.319 Type 2 diabetes mellitus with unspecified diabetic retinopathy without macular edema; E11.21 Type 2 diabetes mellitus with diabetic nephropathy; E11.42 Type 2 diabetes mellitus with diabetic polyneuropathy; I25.10 Atherosclerotic heart disease of native coronary artery without angina pectoris; H54.7 Unspecified visual loss; E78.5 Hyperlipidemia, unspecified
CPT/HCPCS: 82948 ×2; G0277

== ENCOUNTER → 2019-03-26 | Outpatient (CLI) | payer OTHER ==
[2019-03-26 11:51] VITALS: BP 149/69
[2019-03-26 11:52] VITALS: BP 140/70
== END | disposition home or self-care (01) ==
LOC: WHH 08:00
PROVIDERS: ATTEND Podiatrist Foot & Ankle Surgery
DX: E11.621 Type 2 diabetes mellitus with foot ulcer (principal); L97.522 Non-pressure chronic ulcer of other part of left foot with fat layer exposed; E11.22 Type 2 diabetes mellitus with diabetic chronic kidney disease; I12.0 Hypertensive chronic kidney disease with stage 5 chronic kidney disease or end stage renal disease; N18.6 End stage renal disease; E11.69 Type 2 diabetes mellitus with other specified complication; M86.172 Other acute osteomyelitis, left ankle and foot; E11.52 Type 2 diabetes mellitus with diabetic peripheral angiopathy with gangrene; I96 Gangrene, not elsewhere classified; E11.319 Type 2 diabetes mellitus with unspecified diabetic retinopathy without macular edema; E11.21 Type 2 diabetes mellitus with diabetic nephropathy; E11.42 Type 2 diabetes mellitus with diabetic polyneuropathy; I25.10 Atherosclerotic heart disease of native coronary artery without angina pectoris; H54.7 Unspecified visual loss; E78.5 Hyperlipidemia, unspecified
CPT/HCPCS: 11042; 82948 ×2; G0277

== ENCOUNTER → 2019-03-27 | Outpatient (CLI) | payer OTHER ==
[2019-03-27 11:18] VITALS: BP 134/73
[2019-03-27 11:20] VITALS: BP 157/78
== END | disposition home or self-care (01) ==
LOC: WHH 09:00
PROVIDERS: ATTEND Surgery
DX: E11.621 Type 2 diabetes mellitus with foot ulcer (principal); L97.522 Non-pressure chronic ulcer of other part of left foot with fat layer exposed; E11.22 Type 2 diabetes mellitus with diabetic chronic kidney disease; I12.0 Hypertensive chronic kidney disease with stage 5 chronic kidney disease or end stage renal disease; N18.6 End stage renal disease; E11.69 Type 2 diabetes mellitus with other specified complication; M86.172 Other acute osteomyelitis, left ankle and foot; E11.52 Type 2 diabetes mellitus with diabetic peripheral angiopathy with gangrene; I96 Gangrene, not elsewhere classified; E11.319 Type 2 diabetes mellitus with unspecified diabetic retinopathy without macular edema; E11.21 Type 2 diabetes mellitus with diabetic nephropathy; E11.42 Type 2 diabetes mellitus with diabetic polyneuropathy; I25.10 Atherosclerotic heart disease of native coronary artery without angina pectoris; H54.7 Unspecified visual loss; E78.5 Hyperlipidemia, unspecified
CPT/HCPCS: 82948 ×2; G0277

== ENCOUNTER → 2019-03-28 | Outpatient (CLI) | payer OTHER ==
[2019-03-28 11:25] VITALS: BP_SYST 127; BP_SYST 142; BP_DIAS 63; BP_DIAS 67
== END | disposition home or self-care (01) ==
LOC: WHH 09:00
PROVIDERS: ATTEND Surgery
DX: E11.621 Type 2 diabetes mellitus with foot ulcer (principal); L97.521 Non-pressure chronic ulcer of other part of left foot limited to breakdown of skin; E11.22 Type 2 diabetes mellitus with diabetic chronic kidney disease; I12.0 Hypertensive chronic kidney disease with stage 5 chronic kidney disease or end stage renal disease; N18.6 End stage renal disease; E11.69 Type 2 diabetes mellitus with other specified complication; M86.172 Other acute osteomyelitis, left ankle and foot; E11.52 Type 2 diabetes mellitus with diabetic peripheral angiopathy with gangrene; I96 Gangrene, not elsewhere classified; E11.319 Type 2 diabetes mellitus with unspecified diabetic retinopathy without macular edema; E11.21 Type 2 diabetes mellitus with diabetic nephropathy; E11.42 Type 2 diabetes mellitus with diabetic polyneuropathy; I25.10 Atherosclerotic heart disease of native coronary artery without angina pectoris; H54.7 Unspecified visual loss; E78.5 Hyperlipidemia, unspecified; Z99.2 Dependence on renal dialysis
CPT/HCPCS: 82948 ×2; G0277

== ENCOUNTER → 2019-03-31 | Outpatient (CLI) | payer OTHER ==
[2019-03-31 13:44] VITALS: BP_SYST 134; BP_SYST 143; BP_DIAS 66; BP_DIAS 70
== END | disposition home or self-care (01) ==
LOC: WHH 09:00
PROVIDERS: ATTEND Family Medicine
DX: E11.621 Type 2 diabetes mellitus with foot ulcer (principal); L97.521 Non-pressure chronic ulcer of other part of left foot limited to breakdown of skin; E11.22 Type 2 diabetes mellitus with diabetic chronic kidney disease; I12.0 Hypertensive chronic kidney disease with stage 5 chronic kidney disease or end stage renal disease; N18.6 End stage renal disease; E11.69 Type 2 diabetes mellitus with other specified complication; M86.172 Other acute osteomyelitis, left ankle and foot; E11.52 Type 2 diabetes mellitus with diabetic peripheral angiopathy with gangrene; I96 Gangrene, not elsewhere classified; E11.319 Type 2 diabetes mellitus with unspecified diabetic retinopathy without macular edema; E11.21 Type 2 diabetes mellitus with diabetic nephropathy; E11.42 Type 2 diabetes mellitus with diabetic polyneuropathy; I25.10 Atherosclerotic heart disease of native coronary artery without angina pectoris; H54.7 Unspecified visual loss; E78.5 Hyperlipidemia, unspecified; Z99.2 Dependence on renal dialysis
CPT/HCPCS: 82948; G0277

== ENCOUNTER → 2019-04-02 | Outpatient (CLI) | payer OTHER ==
[2019-04-02 12:57] VITALS: BP_SYST 145; BP_DIAS 58; BP_DIAS 68
== END | disposition home or self-care (01) ==
LOC: WHH 07:45
PROVIDERS: ATTEND Podiatrist Foot & Ankle Surgery
DX: E11.621 Type 2 diabetes mellitus with foot ulcer (principal); L97.522 Non-pressure chronic ulcer of other part of left foot with fat layer exposed; E11.22 Type 2 diabetes mellitus with diabetic chronic kidney disease; I12.0 Hypertensive chronic kidney disease with stage 5 chronic kidney disease or end stage renal disease; N18.6 End stage renal disease; E11.69 Type 2 diabetes mellitus with other specified complication; M86.172 Other acute osteomyelitis, left ankle and foot; E11.52 Type 2 diabetes mellitus with diabetic peripheral angiopathy with gangrene; I96 Gangrene, not elsewhere classified; E11.319 Type 2 diabetes mellitus with unspecified diabetic retinopathy without macular edema; E11.21 Type 2 diabetes mellitus with diabetic nephropathy; E11.42 Type 2 diabetes mellitus with diabetic polyneuropathy; I25.10 Atherosclerotic heart disease of native coronary artery without angina pectoris; H54.7 Unspecified visual loss; E78.5 Hyperlipidemia, unspecified; Z99.2 Dependence on renal dialysis
CPT/HCPCS: 11042; 82948 ×2; G0277

== ENCOUNTER → 2019-04-03 | Outpatient (CLI) | payer OTHER ==
[2019-04-03 13:32] VITALS: BP 112/62
[2019-04-03 13:33] VITALS: BP 160/70
== END | disposition home or self-care (01) ==
LOC: WHH 09:00
PROVIDERS: ATTEND Surgery
DX: E11.621 Type 2 diabetes mellitus with foot ulcer (principal); L97.521 Non-pressure chronic ulcer of other part of left foot limited to breakdown of skin; E11.22 Type 2 diabetes mellitus with diabetic chronic kidney disease; I12.0 Hypertensive chronic kidney disease with stage 5 chronic kidney disease or end stage renal disease; N18.6 End stage renal disease; E11.69 Type 2 diabetes mellitus with other specified complication; M86.172 Other acute osteomyelitis, left ankle and foot; E11.52 Type 2 diabetes mellitus with diabetic peripheral angiopathy with gangrene; I96 Gangrene, not elsewhere classified; E11.319 Type 2 diabetes mellitus with unspecified diabetic retinopathy without macular edema; E11.21 Type 2 diabetes mellitus with diabetic nephropathy; E11.42 Type 2 diabetes mellitus with diabetic polyneuropathy; I25.10 Atherosclerotic heart disease of native coronary artery without angina pectoris; H54.7 Unspecified visual loss; E78.5 Hyperlipidemia, unspecified; Z99.2 Dependence on renal dialysis
CPT/HCPCS: 82948 ×2; G0277

== ENCOUNTER → 2019-04-04 | Outpatient (CLI) | payer OTHER ==
[2019-04-04 14:24] VITALS: BP_SYST 124; BP_SYST 154; BP_DIAS 64; BP_DIAS 75
== END | disposition home or self-care (01) ==
LOC: WHH 09:00
PROVIDERS: ATTEND Surgery
DX: E11.621 Type 2 diabetes mellitus with foot ulcer (principal); L97.522 Non-pressure chronic ulcer of other part of left foot with fat layer exposed; E11.22 Type 2 diabetes mellitus with diabetic chronic kidney disease; I12.0 Hypertensive chronic kidney disease with stage 5 chronic kidney disease or end stage renal disease; N18.6 End stage renal disease; E11.69 Type 2 diabetes mellitus with other specified complication; M86.172 Other acute osteomyelitis, left ankle and foot; E11.52 Type 2 diabetes mellitus with diabetic peripheral angiopathy with gangrene; I96 Gangrene, not elsewhere classified; E11.42 Type 2 diabetes mellitus with diabetic polyneuropathy; E11.319 Type 2 diabetes mellitus with unspecified diabetic retinopathy without macular edema; E11.21 Type 2 diabetes mellitus with diabetic nephropathy; I25.10 Atherosclerotic heart disease of native coronary artery without angina pectoris; H54.7 Unspecified visual loss; E78.5 Hyperlipidemia, unspecified; Z99.2 Dependence on renal dialysis
CPT/HCPCS: 82948 ×2; G0277

== ENCOUNTER → 2019-04-07 | Outpatient (CLI) | payer OTHER ==
[2019-04-07 12:24] VITALS: BP 161/72
[2019-04-07 12:25] VITALS: BP 160/68
== END | disposition home or self-care (01) ==
LOC: WHH 08:45
PROVIDERS: ATTEND Surgery
DX: E11.621 Type 2 diabetes mellitus with foot ulcer (principal); L97.521 Non-pressure chronic ulcer of other part of left foot limited to breakdown of skin; E11.22 Type 2 diabetes mellitus with diabetic chronic kidney disease; I12.0 Hypertensive chronic kidney disease with stage 5 chronic kidney disease or end stage renal disease; N18.6 End stage renal disease; E11.69 Type 2 diabetes mellitus with other specified complication; M86.172 Other acute osteomyelitis, left ankle and foot; E11.52 Type 2 diabetes mellitus with diabetic peripheral angiopathy with gangrene; I96 Gangrene, not elsewhere classified; E11.42 Type 2 diabetes mellitus with diabetic polyneuropathy; E11.319 Type 2 diabetes mellitus with unspecified diabetic retinopathy without macular edema; E11.21 Type 2 diabetes mellitus with diabetic nephropathy; I25.10 Atherosclerotic heart disease of native coronary artery without angina pectoris; H54.7 Unspecified visual loss; E78.5 Hyperlipidemia, unspecified; Z99.2 Dependence on renal dialysis
CPT/HCPCS: 82948 ×2; G0277

== ENCOUNTER → 2019-04-08 | Outpatient (CLI) | payer OTHER ==
[2019-04-08 13:41] VITALS: BP 137/71
[2019-04-08 13:42] VITALS: BP 177/75
== END | disposition home or self-care (01) ==
LOC: WHH 09:00
PROVIDERS: ATTEND Surgery
DX: E11.621 Type 2 diabetes mellitus with foot ulcer (principal); L97.521 Non-pressure chronic ulcer of other part of left foot limited to breakdown of skin; E11.22 Type 2 diabetes mellitus with diabetic chronic kidney disease; I12.0 Hypertensive chronic kidney disease with stage 5 chronic kidney disease or end stage renal disease; N18.6 End stage renal disease; E11.69 Type 2 diabetes mellitus with other specified complication; M86.172 Other acute osteomyelitis, left ankle and foot; E11.52 Type 2 diabetes mellitus with diabetic peripheral angiopathy with gangrene; I96 Gangrene, not elsewhere classified; E11.42 Type 2 diabetes mellitus with diabetic polyneuropathy; E11.319 Type 2 diabetes mellitus with unspecified diabetic retinopathy without macular edema; E11.21 Type 2 diabetes mellitus with diabetic nephropathy; I25.10 Atherosclerotic heart disease of native coronary artery without angina pectoris; H54.7 Unspecified visual loss; E78.5 Hyperlipidemia, unspecified; Z99.2 Dependence on renal dialysis
CPT/HCPCS: 82948 ×2; G0277

== ENCOUNTER → 2019-04-09 | Outpatient (CLI) | payer OTHER ==
[2019-04-09 13:23] VITALS: BP 124/61
[2019-04-09 13:24] VITALS: BP 166/80
== END | disposition home or self-care (01) ==
LOC: WHH 08:00
PROVIDERS: ATTEND Podiatrist Foot & Ankle Surgery
DX: T87.89 Other complications of amputation stump (principal); E11.621 Type 2 diabetes mellitus with foot ulcer; L97.521 Non-pressure chronic ulcer of other part of left foot limited to breakdown of skin; E11.22 Type 2 diabetes mellitus with diabetic chronic kidney disease; I12.0 Hypertensive chronic kidney disease with stage 5 chronic kidney disease or end stage renal disease; N18.6 End stage renal disease; E11.69 Type 2 diabetes mellitus with other specified complication; M86.172 Other acute osteomyelitis, left ankle and foot; E11.52 Type 2 diabetes mellitus with diabetic peripheral angiopathy with gangrene; I96 Gangrene, not elsewhere classified; E11.42 Type 2 diabetes mellitus with diabetic polyneuropathy; E11.319 Type 2 diabetes mellitus with unspecified diabetic retinopathy without macular edema; E11.21 Type 2 diabetes mellitus with diabetic nephropathy; I25.10 Atherosclerotic heart disease of native coronary artery without angina pectoris; H54.7 Unspecified visual loss; E78.5 Hyperlipidemia, unspecified; Z99.2 Dependence on renal dialysis; Y83.5 Amputation of limb(s) as the cause of abnormal reaction of the patient, or of later complication, without mention of misadventure at the time of the procedure
CPT/HCPCS: 11042; 82948 ×2; G0277

== ENCOUNTER → 2019-04-14 | Outpatient (CLI) | payer OTHER ==
[2019-04-14 13:44] VITALS: BP_SYST 164; BP_SYST 172; BP_DIAS 71; BP_DIAS 82
== END | disposition home or self-care (01) ==
LOC: WHH 09:00
PROVIDERS: ATTEND Family Medicine
DX: E11.621 Type 2 diabetes mellitus with foot ulcer (principal); L97.521 Non-pressure chronic ulcer of other part of left foot limited to breakdown of skin; E11.22 Type 2 diabetes mellitus with diabetic chronic kidney disease; I12.0 Hypertensive chronic kidney disease with stage 5 chronic kidney disease or end stage renal disease; N18.6 End stage renal disease; E11.69 Type 2 diabetes mellitus with other specified complication; M86.172 Other acute osteomyelitis, left ankle and foot; E11.52 Type 2 diabetes mellitus with diabetic peripheral angiopathy with gangrene; I96 Gangrene, not elsewhere classified; E11.42 Type 2 diabetes mellitus with diabetic polyneuropathy; E11.319 Type 2 diabetes mellitus with unspecified diabetic retinopathy without macular edema; E11.21 Type 2 diabetes mellitus with diabetic nephropathy; I25.10 Atherosclerotic heart disease of native coronary artery without angina pectoris; H54.7 Unspecified visual loss; E78.5 Hyperlipidemia, unspecified; Z99.2 Dependence on renal dialysis
CPT/HCPCS: 82948 ×2; G0277

== ENCOUNTER → 2019-04-15 | Outpatient (CLI) | payer OTHER ==
[2019-04-15 14:22] VITALS: BP_SYST 145; BP_SYST 166; BP_DIAS 68; BP_DIAS 72
== END | disposition home or self-care (01) ==
LOC: WHH 09:00
PROVIDERS: ATTEND Family Medicine
DX: E11.621 Type 2 diabetes mellitus with foot ulcer (principal); L97.521 Non-pressure chronic ulcer of other part of left foot limited to breakdown of skin; E11.22 Type 2 diabetes mellitus with diabetic chronic kidney disease; E11.622 Type 2 diabetes mellitus with other skin ulcer; L98.491 Non-pressure chronic ulcer of skin of other sites limited to breakdown of skin; I12.0 Hypertensive chronic kidney disease with stage 5 chronic kidney disease or end stage renal disease; N18.6 End stage renal disease; E11.69 Type 2 diabetes mellitus with other specified complication; M86.172 Other acute osteomyelitis, left ankle and foot; E11.52 Type 2 diabetes mellitus with diabetic peripheral angiopathy with gangrene; I96 Gangrene, not elsewhere classified; E11.42 Type 2 diabetes mellitus with diabetic polyneuropathy; E11.319 Type 2 diabetes mellitus with unspecified diabetic retinopathy without macular edema; E11.21 Type 2 diabetes mellitus with diabetic nephropathy; I25.10 Atherosclerotic heart disease of native coronary artery without angina pectoris; H54.7 Unspecified visual loss; E78.5 Hyperlipidemia, unspecified; Z99.2 Dependence on renal dialysis
CPT/HCPCS: 82948 ×2; G0277

== ENCOUNTER → 2019-04-16 | Outpatient (CLI) | payer OTHER ==
[2019-04-16 14:18] VITALS: BP 158/76
[2019-04-16 14:19] VITALS: BP 154/72
== END | disposition home or self-care (01) ==
LOC: WHH 08:00
PROVIDERS: ATTEND Podiatrist Foot & Ankle Surgery
DX: E11.621 Type 2 diabetes mellitus with foot ulcer (principal); L97.522 Non-pressure chronic ulcer of other part of left foot with fat layer exposed; I25.10 Atherosclerotic heart disease of native coronary artery without angina pectoris; E11.52 Type 2 diabetes mellitus with diabetic peripheral angiopathy with gangrene; I96 Gangrene, not elsewhere classified; E11.22 Type 2 diabetes mellitus with diabetic chronic kidney disease; I12.0 Hypertensive chronic kidney disease with stage 5 chronic kidney disease or end stage renal disease; N18.6 End stage renal disease; E78.5 Hyperlipidemia, unspecified; E11.21 Type 2 diabetes mellitus with diabetic nephropathy; E11.319 Type 2 diabetes mellitus with unspecified diabetic retinopathy without macular edema; E11.42 Type 2 diabetes mellitus with diabetic polyneuropathy; H54.7 Unspecified visual loss; Z99.2 Dependence on renal dialysis
CPT/HCPCS: 11042; 82948 ×2; A6021; G0277

== ENCOUNTER → 2019-04-17 | Outpatient (CLI) | payer OTHER ==
[2019-04-17 10:22] VITALS: BP 141/70
[2019-04-17 14:20] VITALS: BP 174/68
== END | disposition home or self-care (01) ==
LOC: WHH 09:00
PROVIDERS: ATTEND Surgery
DX: E11.621 Type 2 diabetes mellitus with foot ulcer (principal); L97.521 Non-pressure chronic ulcer of other part of left foot limited to breakdown of skin; I25.10 Atherosclerotic heart disease of native coronary artery without angina pectoris; E11.52 Type 2 diabetes mellitus with diabetic peripheral angiopathy with gangrene; I96 Gangrene, not elsewhere classified; E11.22 Type 2 diabetes mellitus with diabetic chronic kidney disease; I12.0 Hypertensive chronic kidney disease with stage 5 chronic kidney disease or end stage renal disease; N18.6 End stage renal disease; E78.5 Hyperlipidemia, unspecified; E11.42 Type 2 diabetes mellitus with diabetic polyneuropathy; E11.21 Type 2 diabetes mellitus with diabetic nephropathy; E11.319 Type 2 diabetes mellitus with unspecified diabetic retinopathy without macular edema; H54.7 Unspecified visual loss; Z99.2 Dependence on renal dialysis
CPT/HCPCS: 82948 ×2; G0277

== ENCOUNTER → 2019-04-18 | Outpatient (CLI) | payer OTHER ==
[2019-04-18 11:05] VITALS: BP 154/73
== END | disposition home or self-care (01) ==
LOC: WHH 09:15
PROVIDERS: ATTEND Podiatrist Foot & Ankle Surgery
DX: E11.621 Type 2 diabetes mellitus with foot ulcer (principal); L97.521 Non-pressure chronic ulcer of other part of left foot limited to breakdown of skin; I25.10 Atherosclerotic heart disease of native coronary artery without angina pectoris; E11.52 Type 2 diabetes mellitus with diabetic peripheral angiopathy with gangrene; I96 Gangrene, not elsewhere classified; E11.22 Type 2 diabetes mellitus with diabetic chronic kidney disease; I12.0 Hypertensive chronic kidney disease with stage 5 chronic kidney disease or end stage renal disease; N18.6 End stage renal disease; E78.5 Hyperlipidemia, unspecified; E11.21 Type 2 diabetes mellitus with diabetic nephropathy; E11.319 Type 2 diabetes mellitus with unspecified diabetic retinopathy without macular edema; E11.42 Type 2 diabetes mellitus with diabetic polyneuropathy; H54.7 Unspecified visual loss; Z99.2 Dependence on renal dialysis
CPT/HCPCS: A6021; G0463

== ENCOUNTER → 2019-04-21 | Outpatient (CLI) | payer OTHER ==
[2019-04-21 15:22] VITALS: BP_SYST 145; BP_SYST 165; BP_DIAS 53; BP_DIAS 70
== END | disposition home or self-care (01) ==
LOC: WHH 09:00
PROVIDERS: ATTEND Family Medicine
DX: E11.621 Type 2 diabetes mellitus with foot ulcer (principal); L97.521 Non-pressure chronic ulcer of other part of left foot limited to breakdown of skin; I25.10 Atherosclerotic heart disease of native coronary artery without angina pectoris; E11.52 Type 2 diabetes mellitus with diabetic peripheral angiopathy with gangrene; I96 Gangrene, not elsewhere classified; E11.22 Type 2 diabetes mellitus with diabetic chronic kidney disease; I12.0 Hypertensive chronic kidney disease with stage 5 chronic kidney disease or end stage renal disease; N18.6 End stage renal disease; E78.5 Hyperlipidemia, unspecified; E11.21 Type 2 diabetes mellitus with diabetic nephropathy; E11.319 Type 2 diabetes mellitus with unspecified diabetic retinopathy without macular edema; E11.42 Type 2 diabetes mellitus with diabetic polyneuropathy; H54.7 Unspecified visual loss; Z99.2 Dependence on renal dialysis
CPT/HCPCS: 82948 ×2; A6021; G0277

== ENCOUNTER → 2019-04-22 | Outpatient (CLI) | payer OTHER ==
[2019-04-22 13:37] VITALS: BP 123/61
[2019-04-22 13:38] VITALS: BP 149/67
== END | disposition home or self-care (01) ==
LOC: WHH 09:00
PROVIDERS: ATTEND Family Medicine
DX: E11.621 Type 2 diabetes mellitus with foot ulcer (principal); L97.521 Non-pressure chronic ulcer of other part of left foot limited to breakdown of skin; I25.10 Atherosclerotic heart disease of native coronary artery without angina pectoris; E11.52 Type 2 diabetes mellitus with diabetic peripheral angiopathy with gangrene; I96 Gangrene, not elsewhere classified; E11.22 Type 2 diabetes mellitus with diabetic chronic kidney disease; I12.0 Hypertensive chronic kidney disease with stage 5 chronic kidney disease or end stage renal disease; N18.6 End stage renal disease; E78.5 Hyperlipidemia, unspecified; E11.21 Type 2 diabetes mellitus with diabetic nephropathy; E11.319 Type 2 diabetes mellitus with unspecified diabetic retinopathy without macular edema; E11.42 Type 2 diabetes mellitus with diabetic polyneuropathy; H54.7 Unspecified visual loss; Z99.2 Dependence on renal dialysis
CPT/HCPCS: 82948 ×2; G0277

== ENCOUNTER → 2019-04-24 | Outpatient (CLI) | payer OTHER ==
[2019-04-24 14:36] VITALS: BP 164/70
[2019-04-24 14:37] VITALS: BP 155/58
== END | disposition home or self-care (01) ==
LOC: WHH 09:00
PROVIDERS: ATTEND Surgery
DX: E11.621 Type 2 diabetes mellitus with foot ulcer (principal); L97.521 Non-pressure chronic ulcer of other part of left foot limited to breakdown of skin; I25.10 Atherosclerotic heart disease of native coronary artery without angina pectoris; E11.52 Type 2 diabetes mellitus with diabetic peripheral angiopathy with gangrene; I96 Gangrene, not elsewhere classified; E11.22 Type 2 diabetes mellitus with diabetic chronic kidney disease; I12.0 Hypertensive chronic kidney disease with stage 5 chronic kidney disease or end stage renal disease; N18.6 End stage renal disease; E78.5 Hyperlipidemia, unspecified; E11.21 Type 2 diabetes mellitus with diabetic nephropathy; E11.319 Type 2 diabetes mellitus with unspecified diabetic retinopathy without macular edema; E11.42 Type 2 diabetes mellitus with diabetic polyneuropathy; H54.7 Unspecified visual loss; Z99.2 Dependence on renal dialysis
CPT/HCPCS: 82948 ×2; G0277

== ENCOUNTER → 2019-04-25 | Outpatient (CLI) | payer OTHER | END | disposition home or self-care (01) | LOC: WHH 08:30 | PROVIDERS: ATTEND Surgery | DX: E11.621 Type 2 diabetes mellitus with foot ulcer (principal); L97.521 Non-pressure chronic ulcer of other part of left foot limited to breakdown of skin; I25.10 Atherosclerotic heart disease of native coronary artery without angina pectoris; E11.52 Type 2 diabetes mellitus with diabetic peripheral angiopathy with gangrene; I96 Gangrene, not elsewhere classified; E11.22 Type 2 diabetes mellitus with diabetic chronic kidney disease; I12.0 Hypertensive chronic kidney disease with stage 5 chronic kidney disease or end stage renal disease; N18.6 End stage renal disease; E78.5 Hyperlipidemia, unspecified; E11.21 Type 2 diabetes mellitus with diabetic nephropathy; E11.319 Type 2 diabetes mellitus with unspecified diabetic retinopathy without macular edema; E11.42 Type 2 diabetes mellitus with diabetic polyneuropathy; H54.7 Unspecified visual loss; Z99.2 Dependence on renal dialysis | CPT/HCPCS: 82948 ×2; A6021; G0277 ==

== ENCOUNTER → 2019-04-28 | Outpatient (CLI) | payer OTHER ==
[2019-04-28 13:44] VITALS: BP 154/66
[2019-04-28 13:48] VITALS: BP 209/79
== END | disposition home or self-care (01) ==
LOC: WHH 09:00
PROVIDERS: ATTEND Family Medicine
DX: T87.89 Other complications of amputation stump (principal); E11.621 Type 2 diabetes mellitus with foot ulcer; L97.521 Non-pressure chronic ulcer of other part of left foot limited to breakdown of skin; E11.52 Type 2 diabetes mellitus with diabetic peripheral angiopathy with gangrene; I96 Gangrene, not elsewhere classified; E11.22 Type 2 diabetes mellitus with diabetic chronic kidney disease; I12.0 Hypertensive chronic kidney disease with stage 5 chronic kidney disease or end stage renal disease; N18.6 End stage renal disease; E11.42 Type 2 diabetes mellitus with diabetic polyneuropathy; E11.21 Type 2 diabetes mellitus with diabetic nephropathy; E11.319 Type 2 diabetes mellitus with unspecified diabetic retinopathy without macular edema; E78.5 Hyperlipidemia, unspecified; I25.10 Atherosclerotic heart disease of native coronary artery without angina pectoris; H54.7 Unspecified visual loss; Z99.2 Dependence on renal dialysis; Y83.5 Amputation of limb(s) as the cause of abnormal reaction of the patient, or of later complication, without mention of misadventure at the time of the procedure
CPT/HCPCS: 82948; A6021; G0277

== ENCOUNTER → 2019-04-29 | Outpatient (CLI) | payer OTHER ==
[2019-04-29 11:36] VITALS: BP 140/68
[2019-04-29 11:38] VITALS: BP 163/74
== END | disposition home or self-care (01) ==
LOC: WHH 08:50
PROVIDERS: ATTEND Family Medicine
DX: E11.621 Type 2 diabetes mellitus with foot ulcer (principal); L97.521 Non-pressure chronic ulcer of other part of left foot limited to breakdown of skin; E11.52 Type 2 diabetes mellitus with diabetic peripheral angiopathy with gangrene; I96 Gangrene, not elsewhere classified; E11.22 Type 2 diabetes mellitus with diabetic chronic kidney disease; I12.0 Hypertensive chronic kidney disease with stage 5 chronic kidney disease or end stage renal disease; N18.6 End stage renal disease; E11.42 Type 2 diabetes mellitus with diabetic polyneuropathy; E11.21 Type 2 diabetes mellitus with diabetic nephropathy; E11.319 Type 2 diabetes mellitus with unspecified diabetic retinopathy without macular edema; E78.5 Hyperlipidemia, unspecified; I25.10 Atherosclerotic heart disease of native coronary artery without angina pectoris; H54.7 Unspecified visual loss; Z99.2 Dependence on renal dialysis
CPT/HCPCS: 82948 ×2; G0277

== ENCOUNTER → 2019-04-30 | Outpatient (CLI) | payer OTHER ==
[2019-04-30 11:34] VITALS: BP_SYST 160; BP_SYST 171; BP_DIAS 72; BP_DIAS 81
== END | disposition home or self-care (01) ==
LOC: WHH 08:05
PROVIDERS: ATTEND Podiatrist Foot & Ankle Surgery
DX: T87.89 Other complications of amputation stump (principal); E11.621 Type 2 diabetes mellitus with foot ulcer; L97.522 Non-pressure chronic ulcer of other part of left foot with fat layer exposed; E11.52 Type 2 diabetes mellitus with diabetic peripheral angiopathy with gangrene; I96 Gangrene, not elsewhere classified; E11.22 Type 2 diabetes mellitus with diabetic chronic kidney disease; I12.0 Hypertensive chronic kidney disease with stage 5 chronic kidney disease or end stage renal disease; N18.6 End stage renal disease; E11.42 Type 2 diabetes mellitus with diabetic polyneuropathy; E11.21 Type 2 diabetes mellitus with diabetic nephropathy; E11.319 Type 2 diabetes mellitus with unspecified diabetic retinopathy without macular edema; E78.5 Hyperlipidemia, unspecified; I25.10 Atherosclerotic heart disease of native coronary artery without angina pectoris; H54.7 Unspecified visual loss; Z99.2 Dependence on renal dialysis; Y83.5 Amputation of limb(s) as the cause of abnormal reaction of the patient, or of later complication, without mention of misadventure at the time of the procedure
CPT/HCPCS: 11042; 82948 ×2; A6021; G0277

== ENCOUNTER → 2019-05-01 | Outpatient (CLI) | payer OTHER ==
[2019-05-01 12:47] VITALS: BP 149/72
== END | disposition home or self-care (01) ==
LOC: WHH 09:00
PROVIDERS: ATTEND Surgery
DX: E11.621 Type 2 diabetes mellitus with foot ulcer (principal); L97.522 Non-pressure chronic ulcer of other part of left foot with fat layer exposed; E11.52 Type 2 diabetes mellitus with diabetic peripheral angiopathy with gangrene; I96 Gangrene, not elsewhere classified; E11.22 Type 2 diabetes mellitus with diabetic chronic kidney disease; I12.0 Hypertensive chronic kidney disease with stage 5 chronic kidney disease or end stage renal disease; N18.6 End stage renal disease; E11.42 Type 2 diabetes mellitus with diabetic polyneuropathy; E11.21 Type 2 diabetes mellitus with diabetic nephropathy; E11.319 Type 2 diabetes mellitus with unspecified diabetic retinopathy without macular edema; E78.5 Hyperlipidemia, unspecified; I25.10 Atherosclerotic heart disease of native coronary artery without angina pectoris; H54.7 Unspecified visual loss; Z99.2 Dependence on renal dialysis
CPT/HCPCS: 82948 ×2; G0277

== ENCOUNTER → 2019-05-02 | Outpatient (CLI) | payer OTHER ==
[2019-05-02 13:32] VITALS: BP 132/69
[2019-05-02 13:33] VITALS: BP 169/78
== END | disposition home or self-care (01) ==
LOC: WHH 09:00
PROVIDERS: ATTEND Surgery
DX: T87.89 Other complications of amputation stump (principal); E11.621 Type 2 diabetes mellitus with foot ulcer; L97.521 Non-pressure chronic ulcer of other part of left foot limited to breakdown of skin; E11.52 Type 2 diabetes mellitus with diabetic peripheral angiopathy with gangrene; I96 Gangrene, not elsewhere classified; E11.22 Type 2 diabetes mellitus with diabetic chronic kidney disease; I12.0 Hypertensive chronic kidney disease with stage 5 chronic kidney disease or end stage renal disease; N18.6 End stage renal disease; E11.42 Type 2 diabetes mellitus with diabetic polyneuropathy; E11.21 Type 2 diabetes mellitus with diabetic nephropathy; E11.319 Type 2 diabetes mellitus with unspecified diabetic retinopathy without macular edema; E78.5 Hyperlipidemia, unspecified; I25.10 Atherosclerotic heart disease of native coronary artery without angina pectoris; H54.7 Unspecified visual loss; Z99.2 Dependence on renal dialysis; Y83.5 Amputation of limb(s) as the cause of abnormal reaction of the patient, or of later complication, without mention of misadventure at the time of the procedure
CPT/HCPCS: 82948 ×2; A6021; G0277

== ENCOUNTER → 2019-05-05 | Outpatient (CLI) | payer OTHER ==
[2019-05-05 13:44] VITALS: BP 145/72
[2019-05-05 13:45] VITALS: BP 156/82
== END | disposition home or self-care (01) ==
LOC: WHH 08:45
PROVIDERS: ATTEND Surgery
DX: T87.89 Other complications of amputation stump (principal); E11.621 Type 2 diabetes mellitus with foot ulcer; L97.521 Non-pressure chronic ulcer of other part of left foot limited to breakdown of skin; E11.52 Type 2 diabetes mellitus with diabetic peripheral angiopathy with gangrene; I96 Gangrene, not elsewhere classified; E11.22 Type 2 diabetes mellitus with diabetic chronic kidney disease; I12.0 Hypertensive chronic kidney disease with stage 5 chronic kidney disease or end stage renal disease; N18.6 End stage renal disease; E11.42 Type 2 diabetes mellitus with diabetic polyneuropathy; E11.21 Type 2 diabetes mellitus with diabetic nephropathy; E11.319 Type 2 diabetes mellitus with unspecified diabetic retinopathy without macular edema; E78.5 Hyperlipidemia, unspecified; I25.10 Atherosclerotic heart disease of native coronary artery without angina pectoris; H54.7 Unspecified visual loss; Y83.5 Amputation of limb(s) as the cause of abnormal reaction of the patient, or of later complication, without mention of misadventure at the time of the procedure; Z99.2 Dependence on renal dialysis
CPT/HCPCS: 82948 ×2; A6021; G0277

== ENCOUNTER → 2019-05-07 | Outpatient (CLI) | payer OTHER ==
[2019-05-07 13:20] VITALS: BP 155/80
== END | disposition home or self-care (01) ==
LOC: WHH 09:00
PROVIDERS: ATTEND Podiatrist Foot & Ankle Surgery
DX: T87.89 Other complications of amputation stump (principal); E11.621 Type 2 diabetes mellitus with foot ulcer; L97.522 Non-pressure chronic ulcer of other part of left foot with fat layer exposed; E11.52 Type 2 diabetes mellitus with diabetic peripheral angiopathy with gangrene; I96 Gangrene, not elsewhere classified; E11.22 Type 2 diabetes mellitus with diabetic chronic kidney disease; I12.0 Hypertensive chronic kidney disease with stage 5 chronic kidney disease or end stage renal disease; N18.6 End stage renal disease; E11.42 Type 2 diabetes mellitus with diabetic polyneuropathy; E11.21 Type 2 diabetes mellitus with diabetic nephropathy; E11.319 Type 2 diabetes mellitus with unspecified diabetic retinopathy without macular edema; E78.5 Hyperlipidemia, unspecified; I25.10 Atherosclerotic heart disease of native coronary artery without angina pectoris; H54.7 Unspecified visual loss; Z99.2 Dependence on renal dialysis; Y83.5 Amputation of limb(s) as the cause of abnormal reaction of the patient, or of later complication, without mention of misadventure at the time of the procedure
CPT/HCPCS: 11042; A6209

== ENCOUNTER → 2019-05-21 | Outpatient (CLI) | payer OTHER ==
[2019-05-21 12:13] VITALS: BP 167/68
== END | disposition home or self-care (01) ==
LOC: WHH 09:30
PROVIDERS: ATTEND Podiatrist Foot & Ankle Surgery
DX: T87.89 Other complications of amputation stump (principal); E11.621 Type 2 diabetes mellitus with foot ulcer; L97.522 Non-pressure chronic ulcer of other part of left foot with fat layer exposed; E11.52 Type 2 diabetes mellitus with diabetic peripheral angiopathy with gangrene; I96 Gangrene, not elsewhere classified; E11.22 Type 2 diabetes mellitus with diabetic chronic kidney disease; I12.0 Hypertensive chronic kidney disease with stage 5 chronic kidney disease or end stage renal disease; N18.6 End stage renal disease; E11.42 Type 2 diabetes mellitus with diabetic polyneuropathy; E11.21 Type 2 diabetes mellitus with diabetic nephropathy; E11.319 Type 2 diabetes mellitus with unspecified diabetic retinopathy without macular edema; E78.5 Hyperlipidemia, unspecified; I25.10 Atherosclerotic heart disease of native coronary artery without angina pectoris; H54.7 Unspecified visual loss; Z99.2 Dependence on renal dialysis; Y83.5 Amputation of limb(s) as the cause of abnormal reaction of the patient, or of later complication, without mention of misadventure at the time of the procedure
CPT/HCPCS: 11042; A6209

== ENCOUNTER → 2019-06-11 | Outpatient (CLI) | payer OTHER ==
[2019-06-11 13:46] VITALS: BP 196/115
== END | disposition home or self-care (01) ==
LOC: WHH 09:30
PROVIDERS: ATTEND Podiatrist Foot & Ankle Surgery
DX: T87.89 Other complications of amputation stump (principal); E11.621 Type 2 diabetes mellitus with foot ulcer; L97.522 Non-pressure chronic ulcer of other part of left foot with fat layer exposed; E11.52 Type 2 diabetes mellitus with diabetic peripheral angiopathy with gangrene; I96 Gangrene, not elsewhere classified; E11.22 Type 2 diabetes mellitus with diabetic chronic kidney disease; I12.0 Hypertensive chronic kidney disease with stage 5 chronic kidney disease or end stage renal disease; N18.6 End stage renal disease; E11.42 Type 2 diabetes mellitus with diabetic polyneuropathy; E11.21 Type 2 diabetes mellitus with diabetic nephropathy; E11.319 Type 2 diabetes mellitus with unspecified diabetic retinopathy without macular edema; I25.10 Atherosclerotic heart disease of native coronary artery without angina pectoris; E78.5 Hyperlipidemia, unspecified; H54.7 Unspecified visual loss; Z99.2 Dependence on renal dialysis; Y83.5 Amputation of limb(s) as the cause of abnormal reaction of the patient, or of later complication, without mention of misadventure at the time of the procedure
CPT/HCPCS: 11042; A6021

== ENCOUNTER → 2019-06-25 | Outpatient (CLI) | payer OTHER ==
[2019-06-25 13:45] VITALS: BP 171/83
== END | disposition home or self-care (01) ==
LOC: WHH 09:30
PROVIDERS: ATTEND Podiatrist Foot & Ankle Surgery
DX: E11.621 Type 2 diabetes mellitus with foot ulcer (principal); L97.522 Non-pressure chronic ulcer of other part of left foot with fat layer exposed; E11.52 Type 2 diabetes mellitus with diabetic peripheral angiopathy with gangrene; I96 Gangrene, not elsewhere classified; E11.22 Type 2 diabetes mellitus with diabetic chronic kidney disease; N18.6 End stage renal disease; I12.0 Hypertensive chronic kidney disease with stage 5 chronic kidney disease or end stage renal disease; E11.42 Type 2 diabetes mellitus with diabetic polyneuropathy; E11.21 Type 2 diabetes mellitus with diabetic nephropathy; E11.319 Type 2 diabetes mellitus with unspecified diabetic retinopathy without macular edema; I25.10 Atherosclerotic heart disease of native coronary artery without angina pectoris; E78.5 Hyperlipidemia, unspecified; H54.7 Unspecified visual loss; Z99.2 Dependence on renal dialysis
CPT/HCPCS: 11042; A6021

== ENCOUNTER 2019-06-26 00:49 | Emergency (ER) | payer OTHER ==
[2019-06-26 02:11] LABS: BASOPHILS % (AUTO) 4.2 % (0.0-5.0); EOSINOPHILS % (AUTO) 2.5 % (0.0-8.0); HEMATOCRIT 37.6 % (42-54); LYMPHOCYTES % (AUTO) 7.5 % (21.0-51.0); MEAN CORPUSCULAR HEMOGLOBIN 31.6 pg (27.0-33.0); MEAN CORPUSCULAR HGB CONC 33.2 g/dL (32.0-36.0); MEAN CORPUSCULAR VOLUME 95.1 fL (79-99); MONOCYTES % (AUTO) 6.1 % (3.0-13.0); NEUTROPHILS % (AUTO) 79.7 % (40.0-77.0); PLATELET COUNT (AUTO) 190 K/uL (130-400); RED BLOOD CELL COUNT(AUTO) 3.95 MIL/uL (4.50-6.20); RED CELL DISTRIBUTION WIDTH 15.2 % (11.0-15.5); WHITE BLOOD COUNT (AUTO) 9.5 K/uL (4.8-10.8)
[2019-06-26 02:23] LABS: INR 0.96 (0.85-1.15); PROTHROMBIN TIME 10.1 SEC (9.6-11.6)
[2019-06-26 02:24] LABS: ALANINE AMINOTRANSFERASE 16 U/L (12-78); ALBUMIN 3.8 g/dL (3.5-5.0); ASPARTATE AMINOTRANSFERASE 28 U/L (10-37); BILIRUBIN,TOTAL 0.4 mg/dL (0.2-1.0); CARBON DIOXIDE 25 mmol/L (21-32); CHLORIDE 97 mmol/L (101-111); CREATINE KINASE, TOTAL 182 U/L (21-232); GLOMERULAR FILTR. RATE CALC 5 mL/min (>60); GLUCOSE,RANDOM 209 mg/dL (70-105); SODIUM SERUM 134 mmol/L (136-145); TOTAL PROTEIN, SERUM 8.4 g/dL (6.0-8.3); UREA NITROGEN, BLOOD 70 mg/dL (7-18)
[2019-06-26 02:25] LABS: ALCOHOL, BLOOD < 3 mg/dL (0-10)
[2019-06-26 02:27] LABS: CREATININE 11.2 mg/dL (0.5-1.5); POTASSIUM 6.9 mmol/L (3.5-5.1)
[2019-06-26 02:37] LABS: B-TYPE NATRIURETIC PEPTIDE 184 pg/mL (0-100)
[2019-06-26 04:15] LABS: POTASSIUM 5.5 mmol/L (3.5-5.1)
[2019-06-26 04:20] LABS: CREATININE 11.4 mg/dL (0.5-1.5)
[2019-06-26] MEDS ORDERED: CALCIUM GLUCONATE 1 GM/10 ML VIAL IV ONE (04:39)
[2019-06-26] MEDS ORDERED: INSULIN HUMULIN R 100 UNIT/ML 3ML ONE (04:52)
[2019-06-26] MEDS ORDERED: DEXTROSE 50%-WATER 50 ML DISP.SYRIN IV ONE (04:52)
[2019-06-26] MEDS ORDERED: HYDRALAZINE HCL 20 MG/ML VIAL ONE (05:50)
== END 2019-06-26 07:14 | disposition home or self-care (01) ==
LOC: EDH 00:49
DX: R41.82 Altered mental status, unspecified (principal); E87.5 Hyperkalemia; K59.00 Constipation, unspecified; I25.10 Atherosclerotic heart disease of native coronary artery without angina pectoris; E11.9 Type 2 diabetes mellitus without complications; I10 Essential (primary) hypertension; G20 Parkinson's disease; H54.7 Unspecified visual loss; E11.39 Type 2 diabetes mellitus with other diabetic ophthalmic complication; H40.9 Unspecified glaucoma; H42 Glaucoma in diseases classified elsewhere; Z91.14 Patient's other noncompliance with medication regimen; Z99.2 Dependence on renal dialysis
CPT/HCPCS: 36415; 70450; 71045; 80048; 80053; 82550; 82948 ×2; 83605; 83880; 84132; 84484; 85025; 85610; 85730; 93005; 96374; 96375; 99285; G0480; J0360; J0610; J1815; J7070

== ENCOUNTER → 2019-07-09 | Outpatient (CLI) | payer OTHER ==
[2019-07-09 12:11] VITALS: BP 122/78
== END | disposition home or self-care (01) ==
LOC: WHH 09:30
PROVIDERS: ATTEND Podiatrist Foot & Ankle Surgery
DX: T87.89 Other complications of amputation stump (principal); E11.621 Type 2 diabetes mellitus with foot ulcer; L97.522 Non-pressure chronic ulcer of other part of left foot with fat layer exposed; E11.42 Type 2 diabetes mellitus with diabetic polyneuropathy; E11.21 Type 2 diabetes mellitus with diabetic nephropathy; E11.52 Type 2 diabetes mellitus with diabetic peripheral angiopathy with gangrene; I96 Gangrene, not elsewhere classified; E11.319 Type 2 diabetes mellitus with unspecified diabetic retinopathy without macular edema; E11.39 Type 2 diabetes mellitus with other diabetic ophthalmic complication; H42 Glaucoma in diseases classified elsewhere; E11.22 Type 2 diabetes mellitus with diabetic chronic kidney disease; I12.0 Hypertensive chronic kidney disease with stage 5 chronic kidney disease or end stage renal disease; N18.6 End stage renal disease; I25.10 Atherosclerotic heart disease of native coronary artery without angina pectoris; G20 Parkinson's disease; H54.7 Unspecified visual loss; E78.5 Hyperlipidemia, unspecified; Z99.2 Dependence on renal dialysis; Y83.5 Amputation of limb(s) as the cause of abnormal reaction of the patient, or of later complication, without mention of misadventure at the time of the procedure
CPT/HCPCS: 11042; A6022

== ENCOUNTER → 2019-07-23 | Outpatient (CLI) | payer OTHER ==
[2019-07-23 12:03] VITALS: BP 114/54
== END | disposition home or self-care (01) ==
LOC: WHH 09:15
PROVIDERS: ATTEND Podiatrist Foot & Ankle Surgery
DX: E11.621 Type 2 diabetes mellitus with foot ulcer (principal); L97.522 Non-pressure chronic ulcer of other part of left foot with fat layer exposed; E11.52 Type 2 diabetes mellitus with diabetic peripheral angiopathy with gangrene; I96 Gangrene, not elsewhere classified; E11.42 Type 2 diabetes mellitus with diabetic polyneuropathy; E11.21 Type 2 diabetes mellitus with diabetic nephropathy; E11.22 Type 2 diabetes mellitus with diabetic chronic kidney disease; I12.0 Hypertensive chronic kidney disease with stage 5 chronic kidney disease or end stage renal disease; N18.6 End stage renal disease; E11.39 Type 2 diabetes mellitus with other diabetic ophthalmic complication; H42 Glaucoma in diseases classified elsewhere; E11.319 Type 2 diabetes mellitus with unspecified diabetic retinopathy without macular edema; I25.10 Atherosclerotic heart disease of native coronary artery without angina pectoris; E78.5 Hyperlipidemia, unspecified; H54.7 Unspecified visual loss; G20 Parkinson's disease; Z99.2 Dependence on renal dialysis
CPT/HCPCS: 11042; 87070; 87077 ×2; 87186 ×2; A6021

== ENCOUNTER → 2019-08-06 | Outpatient (CLI) | payer OTHER ==
[2019-08-06 12:05] VITALS: BP 108/62
== END | disposition home or self-care (01) ==
LOC: WHH 09:40
PROVIDERS: ATTEND Podiatrist Foot & Ankle Surgery
DX: E11.621 Type 2 diabetes mellitus with foot ulcer (principal); L97.522 Non-pressure chronic ulcer of other part of left foot with fat layer exposed; E11.52 Type 2 diabetes mellitus with diabetic peripheral angiopathy with gangrene; I96 Gangrene, not elsewhere classified; E11.21 Type 2 diabetes mellitus with diabetic nephropathy; E11.22 Type 2 diabetes mellitus with diabetic chronic kidney disease; I12.0 Hypertensive chronic kidney disease with stage 5 chronic kidney disease or end stage renal disease; N18.6 End stage renal disease; E11.39 Type 2 diabetes mellitus with other diabetic ophthalmic complication; H42 Glaucoma in diseases classified elsewhere; E11.42 Type 2 diabetes mellitus with diabetic polyneuropathy; E11.319 Type 2 diabetes mellitus with unspecified diabetic retinopathy without macular edema; I25.10 Atherosclerotic heart disease of native coronary artery without angina pectoris; G20 Parkinson's disease; H54.7 Unspecified visual loss; E78.5 Hyperlipidemia, unspecified; Z99.2 Dependence on renal dialysis
CPT/HCPCS: 11042; A6248

== ENCOUNTER → 2019-08-20 | Outpatient (CLI) | payer OTHER ==
[~2019-08-20] MED LIST changes: +SIMV-43 PO; -SIMV20TA6 PO
[2019-08-20 13:24] VITALS: BP 154/64
== END | disposition home or self-care (01) ==
LOC: WHH 09:30
PROVIDERS: ATTEND Podiatrist Foot & Ankle Surgery
DX: E11.621 Type 2 diabetes mellitus with foot ulcer (principal); L97.521 Non-pressure chronic ulcer of other part of left foot limited to breakdown of skin; E11.52 Type 2 diabetes mellitus with diabetic peripheral angiopathy with gangrene; I96 Gangrene, not elsewhere classified; E11.21 Type 2 diabetes mellitus with diabetic nephropathy; E11.22 Type 2 diabetes mellitus with diabetic chronic kidney disease; I12.0 Hypertensive chronic kidney disease with stage 5 chronic kidney disease or end stage renal disease; N18.6 End stage renal disease; E11.39 Type 2 diabetes mellitus with other diabetic ophthalmic complication; H42 Glaucoma in diseases classified elsewhere; E11.42 Type 2 diabetes mellitus with diabetic polyneuropathy; E11.319 Type 2 diabetes mellitus with unspecified diabetic retinopathy without macular edema; I25.10 Atherosclerotic heart disease of native coronary artery without angina pectoris; G20 Parkinson's disease; H54.7 Unspecified visual loss; E78.5 Hyperlipidemia, unspecified; Z99.2 Dependence on renal dialysis
CPT/HCPCS: G0463

== ENCOUNTER 2019-08-30 09:23 | Observation (INO) | payer OTHER ==
[~2019-08-30] VITALS: Ht 162.6 cm; Wt 103.2 kg
[2019-08-30 10:06] LABS: BASOPHILS % (AUTO) 0.8 % (0.0-5.0); EOSINOPHILS % (AUTO) 1.7 % (0.0-8.0); HEMATOCRIT 33.9 % (42-54); LYMPHOCYTES % (AUTO) 13.9 % (21.0-51.0); MEAN CORPUSCULAR HEMOGLOBIN 32.2 pg (27.0-33.0); MEAN CORPUSCULAR HGB CONC 33.3 g/dL (32.0-36.0); MEAN CORPUSCULAR VOLUME 96.6 fL (79-99); MONOCYTES % (AUTO) 11.9 % (3.0-13.0); NEUTROPHILS % (AUTO) 71.7 % (40.0-77.0); PLATELET COUNT (AUTO) 193 K/uL (130-400); RED BLOOD CELL COUNT(AUTO) 3.51 MIL/uL (4.50-6.20); RED CELL DISTRIBUTION WIDTH 14.2 % (11.0-15.5); WHITE BLOOD COUNT (AUTO) 8.1 K/uL (4.8-10.8)
[2019-08-30 10:17] LABS: ABG BASE EXCESS -1.4 mmol/L (-2.0-3.0); ABG HCO3 23.4 mmol/L (21.0-28.0); ABG OXYGEN SATURATION 98.9 % (95.0-99.0); ABG PCO2 40 mmHg (35-48)
[2019-08-30 10:20] LABS: ALBUMIN 3.8 g/dL (3.5-5.0); BILIRUBIN,TOTAL 0.4 mg/dL (0.2-1.0); POTASSIUM 4.8 mmol/L (3.5-5.1); TOTAL PROTEIN, SERUM 8.3 g/dL (6.0-8.3)
[2019-08-30 10:23] LABS: CREATININE 9.7 mg/dL (0.5-1.5)
[2019-08-30] MEDS ORDERED: HYDRALAZINE HCL 20 MG/ML VIAL ONE (10:28)
[2019-08-30 11:02] LABS: INR 0.96 (0.85-1.15); PARTIAL THROMBOPLASTIN TIME 26.1 SEC (26.3-35.5); PROTHROMBIN TIME 10.1 SEC (9.6-11.6)
[2019-08-30] MEDS: PANTOPRAZOLE SODIUM 40 MG TABLET.DR PO SCH (11:21)
[2019-08-30] MEDS: ASPIRIN 325MG EC TAB 325 MG TABLET.DR PO SCH (11:22)
[2019-08-30] MEDS ORDERED: MAG HYDROX/AL HYDROX/SIMETH ES 30 ML SUSP UDCUP PO PRN (11:30)
[2019-08-30] MEDS: INSULIN R PO SS2 SQ SCH ×3 (11:30→21:00)
[2019-08-30] MEDS ORDERED: GLUCAGON 1MG KIT 1 MG ML IM PRN (11:30)
[2019-08-30] MEDS ORDERED: GUAIFENESIN-DM 200/20 MG 10 ML PO PRN (11:30)
[2019-08-30] MEDS ORDERED: ONDANSETRON HCL 4 MG/2 ML VIAL IVP PRN (11:30)
[2019-08-30] MEDS ORDERED: DEXTROSE 50%-WATER 50 ML DISP.SYRIN IV PRN (11:30)
[2019-08-30] MEDS ORDERED: LACTULOSE 20 GM/30 ML UDCUP PO PRN (11:30)
[2019-08-30] MEDS ORDERED: POTASSIUM CHLORIDE 20 MEQ ERTAB PO PRN (11:30)
[2019-08-30] MEDS ORDERED: LIDOCAINE HCL-MPF 1% 2ML VIAL IJ PRN (11:30)
[2019-08-30] MEDS ORDERED: DIPHENHYDRAMINE HCL 25 MG CAPSULE PO PRN (11:30)
[2019-08-30] MEDS ORDERED: POTASSIUM CHLORIDE 20MEQ/100ML 100 ML IV PRN (11:30)
[2019-08-30] MEDS ORDERED: DiphenhydrAMINE HCL 50 MG/ML VIAL IVP PRN (11:30)
[2019-08-30] MEDS ORDERED: NITROGLYCERIN 0.4 MG SL TAB SL PRN (11:30)
[2019-08-30] MEDS ORDERED: ZOLPIDEM TARTRATE 5 MG TAB PO PRN (11:30)
[2019-08-30] MEDS ORDERED: CLONIDINE HCL 0.1 MG TABLET PO PRN (11:30)
[2019-08-30] MEDS ORDERED: GUAIFENESIN SUGAR-FREE 100 MG/5 ML UDCUP PO PRN (11:30)
[2019-08-30] MEDS ORDERED: POTASSIUM CHLORIDE 10% ELIXIR 20 MEQ/15 ML UDCUP PO PRN (11:30)
[2019-08-30] MEDS ORDERED: ACETAMINOPHEN 325 MG TAB PO PRN ×2 (11:30)
[2019-08-30 13:30] VITALS: BP 179/90
[2019-08-30] MEDS ORDERED: NALOXONE HCL 0.4 MG/1 ML ML ONE (15:46)
[2019-08-30 15:51] LABS: ABG BASE EXCESS -1.1 mmol/L (-2.0-3.0); ABG HCO3 23.1 mmol/L (21.0-28.0); ABG OXYGEN SATURATION 99.1 % (95.0-99.0); ABG PCO2 37 mmHg (35-48)
[2019-08-30 15:59] LABS: HEMATOCRIT 34.3 % (42-54); MEAN CORPUSCULAR HEMOGLOBIN 32.1 pg (27.0-33.0); MEAN CORPUSCULAR HGB CONC 33.2 g/dL (32.0-36.0); MEAN CORPUSCULAR VOLUME 96.6 fL (79-99); NUCLEATED RED BLOOD CELLS 0.1 % (0.0-0.19); PLATELET COUNT (AUTO) 195 K/uL (130-400); RED BLOOD CELL COUNT(AUTO) 3.55 MIL/uL (4.50-6.20); RED CELL DISTRIBUTION WIDTH 14.1 % (11.0-15.5); WHITE BLOOD COUNT (AUTO) 9.8 K/uL (4.8-10.8)
[2019-08-30 16:13] LABS: INR 0.95 (0.85-1.15); PARTIAL THROMBOPLASTIN TIME 20.8 SEC (26.3-35.5)
[2019-08-30 16:15] LABS: ALBUMIN 3.6 g/dL (3.5-5.0); BILIRUBIN,TOTAL 0.3 mg/dL (0.2-1.0); POTASSIUM 5.5 mmol/L (3.5-5.1); TOTAL PROTEIN, SERUM 8.1 g/dL (6.0-8.3)
[2019-08-30 16:24] LABS: CREATININE 10.2 mg/dL (0.5-1.5)
[2019-08-30] MEDS ORDERED: QUET50TA55 PO (18:50)
[2019-08-30] MEDS ORDERED: LINA145C PO (18:50)
[2019-08-30] MEDS ORDERED: BACL10TA PO (18:50)
[2019-08-30] MEDS ORDERED: ROPI0.257 PO (18:50)
[2019-08-30 19:00] VITALS: BP 93/56
[2019-08-30] MEDS ORDERED: ROPINIROLE HCL 0.25 MG TABLET PO PRN (20:15)
[2019-08-30] MEDS ORDERED: BACLOFEN 10 MG TABLET PO PRN (20:15)
[2019-08-30] MEDS: HYDRALAZINE HCL 25 MG TABLET PO SCH (21:00)
[2019-08-30] MEDS: CARVEDILOL 25 MG TABLET PO SCH (21:00)
[2019-08-30] MEDS: PREGABALIN 75 MG CAPSULE PO SCH (21:00)
[2019-08-30] MEDS: QUETIAPINE FUMARATE 25 MG TAB PO SCH (21:32)
[2019-08-30] MEDS: SIMVASTATIN 20 MG TABLET PO SCH (21:32)
[2019-08-31] VITALS: BP 104/62
[2019-08-31 04:00] VITALS: BP 105/55
[2019-08-31 05:29] LABS: HEMATOCRIT 32.3 % (42-54); MEAN CORPUSCULAR HGB CONC 33.9 g/dL (32.0-36.0); MEAN CORPUSCULAR VOLUME 97.3 fL (79-99); PLATELET COUNT (AUTO) 188 K/uL (130-400); RED BLOOD CELL COUNT(AUTO) 3.32 MIL/uL (4.50-6.20); RED CELL DISTRIBUTION WIDTH 14.1 % (11.0-15.5); WHITE BLOOD COUNT (AUTO) 8.6 K/uL (4.8-10.8)
[2019-08-31 05:48] LABS: CREATININE 7.4 mg/dL (0.5-1.5); PHOSPHORUS 5.2 mg/dL (2.5-4.9); POTASSIUM 4.1 mmol/L (3.5-5.1)
[2019-08-31] MEDS: INSULIN R PO SS2 SQ SCH ×4 (06:37→20:44)
[2019-08-31] MEDS: PANTOPRAZOLE SODIUM 40 MG TABLET.DR PO SCH (06:37)
[2019-08-31 08:00] VITALS: BP 130/75
[2019-08-31] MEDS: Linaclotide (Linzess) 145 MCG PO SCH (09:00)
[2019-08-31] MEDS: PRASUGREL HCL 10 MG TABLET PO SCH (10:23)
[2019-08-31] MEDS: ASPIRIN 325MG EC TAB 325 MG TABLET.DR PO SCH (10:23)
[2019-08-31] MEDS: LOSARTAN 100 MG TABLET PO SCH (10:23)
[2019-08-31] MEDS: FOLIC ACID/VITAMIN B COMP W-C 1 MG CAP/TAB PO SCH (10:24)
[2019-08-31] MEDS: HYDRALAZINE HCL 25 MG TABLET PO SCH ×4 (10:24→21:00)
[2019-08-31] MEDS: CARVEDILOL 25 MG TABLET PO SCH ×2 (10:24→20:36)
[2019-08-31] MEDS: INSULIN GLARGINE 100 UNITS/ML 10 ML VIAL SQ SCH (10:39)
[2019-08-31 11:00] VITALS: BP 100/65
[2019-08-31] MEDS: CALCIUM ACETATE 667 MG CAPSULE PO SCH ×2 (12:37→17:00)
[2019-08-31 16:00] VITALS: BP 123/52
[2019-08-31 19:10] VITALS: BP 121/81
[2019-08-31] MEDS: SIMVASTATIN 20 MG TABLET PO SCH (20:35)
[2019-08-31] MEDS: QUETIAPINE FUMARATE 25 MG TAB PO SCH (20:36)
[2019-08-31] MEDS: PREGABALIN 75 MG CAPSULE PO SCH ×2 (20:45→21:00)
[2019-09-01] VITALS: BP 110/42
[2019-09-01 00:10] VITALS: BP 109/55
[2019-09-01 04:00] VITALS: BP 109/55
[2019-09-01] MEDS: INSULIN R PO SS2 SQ SCH ×2 (06:01→11:30)
[2019-09-01] MEDS: PANTOPRAZOLE SODIUM 40 MG TABLET.DR PO SCH (06:01)
[2019-09-01 06:04] LABS: HEMATOCRIT 33.5 % (42-54); LYMPHOCYTES % (MANUAL) 30 % (22-44); MAN.DIFF COMMENT-IMPRESSION MANUAL DIFFERENTIAL; MEAN CORPUSCULAR HGB CONC 33.1 g/dL (32.0-36.0); MEAN CORPUSCULAR VOLUME 96.7 fL (79-99); METAMYELOCYTES % 1 % (0-0); MONOCYTES % (MANUAL) 7 % (2-9); NUCLEATED RED BLOOD CELLS 0.1 % (0.0-0.19); PLATELET COUNT (AUTO) 211 K/uL (130-400); RED BLOOD CELL COUNT(AUTO) 3.46 MIL/uL (4.50-6.20); RED CELL DISTRIBUTION WIDTH 14.2 % (11.0-15.5); SEGMENTED NEUTROPHILS % 62 % (40-70); WHITE BLOOD COUNT (AUTO) 9.5 K/uL (4.8-10.8)
[2019-09-01 06:05] LABS: PLATELET MORPHOLOGY COMMENT ADEQUATE
[2019-09-01 06:08] LABS: POTASSIUM 4.3 mmol/L (3.5-5.1)
[2019-09-01 06:14] LABS: CREATININE 10.3 mg/dL (0.5-1.5)
[2019-09-01 08:00] VITALS: BP 126/76
[2019-09-01] MEDS: PRASUGREL HCL 10 MG TABLET PO SCH (08:47)
[2019-09-01] MEDS: FOLIC ACID/VITAMIN B COMP W-C 1 MG CAP/TAB PO SCH (08:47)
[2019-09-01] MEDS: CALCIUM ACETATE 667 MG CAPSULE PO SCH ×2 (08:47→12:00)
[2019-09-01] MEDS: ASPIRIN 325MG EC TAB 325 MG TABLET.DR PO SCH (08:47)
[2019-09-01] MEDS: LOSARTAN 100 MG TABLET PO SCH (08:48)
[2019-09-01] MEDS: HYDRALAZINE HCL 25 MG TABLET PO SCH ×2 (08:48→13:08)
[2019-09-01] MEDS: CARVEDILOL 25 MG TABLET PO SCH (08:48)
[2019-09-01] MEDS: INSULIN GLARGINE 100 UNITS/ML 10 ML VIAL SQ SCH (08:48)
[2019-09-01] MEDS: Linaclotide (Linzess) 145 MCG PO SCH (08:48)
[2019-09-01 12:00] VITALS: BP 111/68
[2019-09-01 16:00] VITALS: BP 130/67
[2019-09-02 06:10] LABS: HEPATITIS A ANTIBODY IGM Negative (Negative); HEPATITIS B CORE IGM Negative (Negative); HEPATITIS Bs ANTIGEN SCREEN P Negative (Negative)
== END 2019-09-01 17:30 | disposition home or self-care (01) ==
LOC: EDH 09:23 → INTOOBSV 10:57 → EDHIP 10:57 → 3BH 12:47
PROVIDERS: ADMIT Family Medicine; ATTEND Family Medicine
DX: R41.82 Altered mental status, unspecified (principal); T85.611A Breakdown (mechanical) of intraperitoneal dialysis catheter, initial encounter; I12.0 Hypertensive chronic kidney disease with stage 5 chronic kidney disease or end stage renal disease; E11.22 Type 2 diabetes mellitus with diabetic chronic kidney disease; E11.21 Type 2 diabetes mellitus with diabetic nephropathy; N18.6 End stage renal disease; Z99.2 Dependence on renal dialysis; G20 Parkinson's disease; D64.9 Anemia, unspecified; E87.70 Fluid overload, unspecified; E78.5 Hyperlipidemia, unspecified; I25.10 Atherosclerotic heart disease of native coronary artery without angina pectoris; Z95.828 Presence of other vascular implants and grafts; Z79.84 Long term (current) use of oral hypoglycemic drugs; Z79.899 Other long term (current) drug therapy; Y83.8 Other surgical procedures as the cause of abnormal reaction of the patient, or of later complication, without mention of misadventure at the time of the procedure; Y92.89 Other specified places as the place of occurrence of the external cause
CPT/HCPCS: 36415 ×3; 36600 ×2; 70450; 70544; 70551; 71045; 80048 ×2; 80053 ×2; 80074; 82140 ×2; 82435; 82550; 82803 ×2; 82947; 82948 ×12; 83605; 83721; 84100; 84132; 84295; 84484; 85018; 85025 ×2; 85027 ×2; 85610 ×2; 85730 ×2; 92610; 93005; 93306; 96372; 99284; 99285; G0378 ×38; J0360; J1815 ×2; J2310; 90935; 93880

== ENCOUNTER 2019-09-03 08:11 | Outpatient (CLI) | payer OTHER ==
[~2019-09-03 08:11] MED LIST changes: +BACL10TA PO; +LINA145C PO; +QUET50TA55 PO; +ROPI0.257 PO
[2019-09-03 12:22] VITALS: BP 169/83
== END 2019-09-03 12:46 | disposition home or self-care (01) ==
LOC: WHH 08:11
PROVIDERS: ATTEND Podiatrist Foot & Ankle Surgery
DX: E11.621 Type 2 diabetes mellitus with foot ulcer (principal); L97.521 Non-pressure chronic ulcer of other part of left foot limited to breakdown of skin; E11.52 Type 2 diabetes mellitus with diabetic peripheral angiopathy with gangrene; I96 Gangrene, not elsewhere classified; E11.21 Type 2 diabetes mellitus with diabetic nephropathy; E11.22 Type 2 diabetes mellitus with diabetic chronic kidney disease; I12.0 Hypertensive chronic kidney disease with stage 5 chronic kidney disease or end stage renal disease; N18.6 End stage renal disease; E11.39 Type 2 diabetes mellitus with other diabetic ophthalmic complication; H42 Glaucoma in diseases classified elsewhere; E11.42 Type 2 diabetes mellitus with diabetic polyneuropathy; E11.319 Type 2 diabetes mellitus with unspecified diabetic retinopathy without macular edema; I25.10 Atherosclerotic heart disease of native coronary artery without angina pectoris; G20 Parkinson's disease; H54.7 Unspecified visual loss; E78.5 Hyperlipidemia, unspecified; Z99.2 Dependence on renal dialysis
CPT/HCPCS: G0463

== ENCOUNTER 2019-09-12 09:28 | Emergency (ER) | payer OTHER ==
[2019-09-12 10:21] LABS: BASOPHILS % (AUTO) 0.7 % (0.0-5.0); EOSINOPHILS % (AUTO) 0.2 % (0.0-8.0); HEMATOCRIT 32.6 % (42-54); LYMPHOCYTES % (AUTO) 11.5 % (21.0-51.0); MEAN CORPUSCULAR HEMOGLOBIN 32.7 pg (27.0-33.0); MEAN CORPUSCULAR HGB CONC 34.3 g/dL (32.0-36.0); MEAN CORPUSCULAR VOLUME 95.3 fL (79-99); MONOCYTES % (AUTO) 9.8 % (3.0-13.0); NEUTROPHILS % (AUTO) 77.8 % (40.0-77.0); PLATELET COUNT (AUTO) 240 K/uL (130-400); RED BLOOD CELL COUNT(AUTO) 3.42 MIL/uL (4.50-6.20); RED CELL DISTRIBUTION WIDTH 13.5 % (11.0-15.5); WHITE BLOOD COUNT (AUTO) 9.8 K/uL (4.8-10.8)
[2019-09-12] MEDS ORDERED: METOCLOPRAMIDE 10 MG/2 ML VIAL ONE (10:25)
[2019-09-12] MEDS ORDERED: FENTANYL CITRATE PF 50 MCG/1 ML 2ML VIAL ONE (10:25)
[2019-09-12 10:44] LABS: POTASSIUM 3.9 mmol/L (3.5-5.1)
[2019-09-12 10:46] LABS: CREATININE 13.5 mg/dL (0.5-1.5)
[2019-09-12] MEDS ORDERED: LABETALOL 20 MG/4 ML DISP.SYRIN IV ONE ×2 (10:54→12:32)
[2019-09-12 10:57] LABS: BILIRUBIN,DIRECT 0.1 mg/dL (0.0-0.3); BILIRUBIN,TOTAL 0.5 mg/dL (0.2-1.0)
[2019-09-12] MEDS ORDERED: LIDOCAINE HCL 2% VISCOUS 15 ML UDCUP ONE (11:40)
[2019-09-12] MEDS ORDERED: MAG HYDROX/AL HYDROX/SIMETH ES 30 ML SUSP UDCUP ONE (11:40)
== END 2019-09-12 13:07 | disposition home or self-care (01) ==
LOC: EDH 09:28
DX: I12.9 Hypertensive chronic kidney disease with stage 1 through stage 4 chronic kidney disease, or unspecified chronic kidney disease (principal); N18.6 End stage renal disease; R10.13 Epigastric pain; K29.50 Unspecified chronic gastritis without bleeding; E11.22 Type 2 diabetes mellitus with diabetic chronic kidney disease; H54.7 Unspecified visual loss; G20 Parkinson's disease; Z99.2 Dependence on renal dialysis; Z87.891 Personal history of nicotine dependence
CPT/HCPCS: 36415; 74176; 76705; 80048; 80076; 83690; 84484; 85025; 87804 ×2; 93005; 96374; 96375; 96376; 99285; J2765; J3010

== ENCOUNTER 2020-09-01 09:50 | Observation (INO) | payer OTHER ==
[~2020-09-01] VITALS: Ht 162.6 cm; Wt 95.7 kg
[2020-09-01 10:21] LABS: BASOPHILS % (AUTO) 0.4 % (0.0-5.0); EOSINOPHILS % (AUTO) 1.4 % (0.0-8.0); HEMATOCRIT 34.8 % (42-54); LYMPHOCYTES % (AUTO) 13.2 % (21.0-51.0); MEAN CORPUSCULAR HEMOGLOBIN 31.6 pg (27.0-33.0); MEAN CORPUSCULAR HGB CONC 31.6 g/dL (32.0-36.0); MONOCYTES % (AUTO) 10.1 % (3.0-13.0); NEUTROPHILS % (AUTO) 74.6 % (40.0-77.0); PLATELET COUNT (AUTO) 247 K/uL (130-400); RED BLOOD CELL COUNT(AUTO) 3.48 MIL/uL (4.50-6.20); RED CELL DISTRIBUTION WIDTH 13.3 % (11.0-15.5); WHITE BLOOD COUNT (AUTO) 10.1 K/uL (4.8-10.8)
[2020-09-01] MEDS ORDERED: DiphenhydrAMINE HCL 50 MG/ML VIAL ONE ×2 (10:23→11:45)
[2020-09-01 10:37] LABS: ALANINE AMINOTRANSFERASE 21 U/L (12-78); ALBUMIN 3.8 g/dL (3.5-5.0); ALCOHOL, BLOOD < 3 mg/dL (0-10); ASPARTATE AMINOTRANSFERASE 24 U/L (10-37); BILIRUBIN,TOTAL 0.4 mg/dL (0.2-1.0); CARBON DIOXIDE 27 mmol/L (21-32); CHLORIDE 102 mmol/L (101-111); GLOMERULAR FILTR. RATE CALC 6 mL/min (>60); GLUCOSE,RANDOM 91 mg/dL (70-105); INR 0.96 (0.85-1.15); POTASSIUM 5.7 mmol/L (3.5-5.1); PROTHROMBIN TIME 10.4 SEC (9.6-11.6); SODIUM SERUM 140 mmol/L (136-145); TOTAL PROTEIN, SERUM 9.6 g/dL (6.0-8.3); UREA NITROGEN, BLOOD 65 mg/dL (7-18)
[2020-09-01 10:38] LABS: ACETAMINOPHEN < 1 mcg/mL (10-29); SALICYLATE < 2.8 mg/dL (2.8-20.0)
[2020-09-01 10:39] LABS: CREATININE 10.2 mg/dL (0.5-1.5)
[2020-09-01 10:57] LABS: MYOGLOBIN 1288 ng/mL (10-92); TROPONIN I < 0.04 ng/mL (0.00-0.06)
[2020-09-01 10:58] LABS: CREATINE KINASE, TOTAL 572 U/L (21-232)
[2020-09-01] MEDS ORDERED: KETOROLAC TROMETHAMINE 30MG/ML ONE (11:46)
[2020-09-01] MEDS ORDERED: LORAZEPAM 2 MG/ML 1 ML VIAL ONE (14:54)
[2020-09-01] MEDS ORDERED: GLUCAGON 1MG KIT 1 MG ML IM PRN (17:15)
[2020-09-01] MEDS ORDERED: LABETALOL 20 MG/4 ML DISP.SYRIN IV PRN (17:15)
[2020-09-01] MEDS ORDERED: ONDANSETRON HCL 4 MG/2 ML VIAL IVP PRN (17:15)
[2020-09-01] MEDS ORDERED: DEXTROSE 50%-WATER 50 ML DISP.SYRIN IV PRN (17:15)
[2020-09-01 17:46] LABS: ABG OXYGEN SATURATION 92.5 % (95.0-99.0); ABG PCO2 45 mmHg (35-48)
[2020-09-01] MEDS ORDERED: LABETALOL HCL 5 MG/ML 20ML VIAL IV ONE (17:50)
[2020-09-01] MEDS ORDERED: DEXTROSE 50%-WATER 50 ML DISP.SYRIN IV ONE (18:22)
[2020-09-02 00:50] VITALS: BP 116/46
--- NOTE | 2020-09-02 01:30 | NUR ---
PATIENT ARRIVED TO 419. PATIENT IS A/OX3 BUT FORGETFUL. HE IS VISUALLY IMPAIRED. CURRENTLY USING 2L, 02 SATS AT 100%. PATIENT DOES HAVE SOB WITH EXERTION. L ARM HD SITE WNL. NO BLEEDING AT SITE. AMPUTATION TO L FOOT 5TH TOE AND 4TH TOE R FOOT. WILL CONTINUE TO MONITOR. BED ALARM ON.
[2020-09-02 03:43] LABS: BASOPHILS % (AUTO) 0.5 % (0.0-5.0); EOSINOPHILS % (AUTO) 1.3 % (0.0-8.0); HEMATOCRIT 33.2 % (42-54); LYMPHOCYTES % (AUTO) 17.2 % (21.0-51.0); MEAN CORPUSCULAR HEMOGLOBIN 31.5 pg (27.0-33.0); MEAN CORPUSCULAR HGB CONC 31.9 g/dL (32.0-36.0); MEAN CORPUSCULAR VOLUME 98.8 fL (79-99); MONOCYTES % (AUTO) 9.7 % (3.0-13.0); NEUTROPHILS % (AUTO) 70.7 % (40.0-77.0); PLATELET COUNT (AUTO) 218 K/uL (130-400); RED BLOOD CELL COUNT(AUTO) 3.36 MIL/uL (4.50-6.20); RED CELL DISTRIBUTION WIDTH 13.3 % (11.0-15.5); WHITE BLOOD COUNT (AUTO) 8.7 K/uL (4.8-10.8)
[2020-09-02 04:03] VITALS: BP 129/54
[2020-09-02 04:06] LABS: ALBUMIN 3.8 g/dL (3.5-5.0); BILIRUBIN,TOTAL 0.5 mg/dL (0.2-1.0); CREATININE 7.1 mg/dL (0.5-1.5); MAGNESIUM 2.2 mg/dL (1.80-2.40); POTASSIUM 4.3 mmol/L (3.5-5.1); TOTAL PROTEIN, SERUM 8.2 g/dL (6.0-8.3)
[2020-09-02] MEDS: INSULIN HUMULIN R 100 UNIT/ML 3ML SQ SCH ×3 (05:42→15:42)
[2020-09-02 08:11] VITALS: BP 154/92
[2020-09-02] MEDS ORDERED: ROPINIROLE HCL 0.25 MG TABLET PO PRN (08:30)
[2020-09-02] MEDS ORDERED: CARVEDILOL 25 MG TABLET PO SCH (09:00)
[2020-09-02] MEDS ORDERED: LINZESS 145 MCG PO SCH (09:00)
[2020-09-02] MEDS ORDERED: FAMOTIDINE 20MG TAB 20 MG TAB PO SCH (09:00)
[2020-09-02] MEDS ORDERED: LOSARTAN 100 MG TABLET PO SCH (09:00)
[2020-09-02] MEDS ORDERED: PRASUGREL HCL 10 MG TABLET PO SCH (09:00)
[2020-09-02 11:59] VITALS: BP 158/77
--- NOTE | 2020-09-02 15:57 | NUR ---
MET W PATIENT AND SPOUSE AT BEDSIDE FOR DC PLANNING. LIVES WITH SPOUSE AND DAUGHTER SPOUSE STATES PATIENT SEMI INDEPENDENT IN ADLS, HAS IMPAIRED VISION AND A WHEELCHAIR; /SHOWERCHAIR; SPOUSE SUPPLIES ALL CARE AND TRANSPORTATION . PATIENT IS BLIND. DCP IS HOME Addendum: 09/02/20 at 1600 by CLARK LANDERS RN CM Amended: Links added.
[2020-09-02 16:00] VITALS: BP 135/77
[2020-09-02] MEDS ORDERED: PREGABALIN 75 MG CAPSULE PO SCH (21:00)
[2020-09-02] MEDS ORDERED: QUETIAPINE FUMARATE 100 MG TAB PO SCH (21:00)
[2020-09-02] MEDS ORDERED: SIMVASTATIN 20 MG TABLET PO SCH (21:00)
[2020-09-04 03:08] LABS: HEPATITIS A ANTIBODY IGM Negative (Negative); HEPATITIS B CORE IGM Negative (Negative); HEPATITIS Bs ANTIGEN SCREEN P Negative (Negative)
== END 2020-09-02 19:15 | disposition home or self-care (01) ==
LOC: EDH 09:50 → EDHIP 16:00 → 4CH 09-02 00:28
PROVIDERS: ADMIT Internal Medicine Critical Care Medicine; ATTEND Internal Medicine Critical Care Medicine
DX: G93.41 Metabolic encephalopathy (principal); T42.8X5A Adverse effect of antiparkinsonism drugs and other central muscle-tone depressants, initial encounter; G24.9 Dystonia, unspecified; E87.6 Hypokalemia; I25.10 Atherosclerotic heart disease of native coronary artery without angina pectoris; E78.5 Hyperlipidemia, unspecified; E66.2 Morbid (severe) obesity with alveolar hypoventilation; E11.22 Type 2 diabetes mellitus with diabetic chronic kidney disease; E11.319 Type 2 diabetes mellitus with unspecified diabetic retinopathy without macular edema; E11.42 Type 2 diabetes mellitus with diabetic polyneuropathy; I12.0 Hypertensive chronic kidney disease with stage 5 chronic kidney disease or end stage renal disease; N18.6 End stage renal disease; H54.8 Legal blindness, as defined in USA; Z79.4 Long term (current) use of insulin; Z79.899 Other long term (current) drug therapy; Z99.2 Dependence on renal dialysis; Z68.41 Body mass index [BMI] 40.0-44.9, adult; Y92.89 Other specified places as the place of occurrence of the external cause
CPT/HCPCS: 36415 ×2; 36600; 70450; 71045 ×2; 80053 ×2; 80074; 82140; 82550; 82803; 82948 ×6; 83735; 83874; 84100; 84484; 85025 ×2; 85610; 85730; 93005; 99285; G0378 ×27; G0481; J1200 ×2; J1885; J2060; J3490; J7070; 90935

== ENCOUNTER 2022-02-23 08:20 | Inpatient (IN) | payer OTHER ==
[~2022-02-23] VITALS: Ht 162.6 cm; Wt 96.9 kg
[2022-02-23] VITALS (13 sets, daily range): BP systolic 88–197; BP diastolic 48–74
[~2022-02-23 08:20] MED LIST changes: -BACL10TA PO; -HYDR100T27 PO; -PHOSLOC PO; +QUET50TA24 PO; -QUET50TA55 PO
[2022-02-23 08:50] LABS: BASOPHILS % (AUTO) 0.3 % (0.0-5.0); EOSINOPHILS % (AUTO) 1.4 % (0.0-8.0); HEMATOCRIT 39.5 % (42-54); LYMPHOCYTES % (AUTO) 9.7 % (21.0-51.0); MEAN CORPUSCULAR HEMOGLOBIN 30.8 pg (27.0-33.0); MEAN CORPUSCULAR HGB CONC 31.4 g/dL (32.0-36.0); MEAN CORPUSCULAR VOLUME 98.3 fL (79-99); MONOCYTES % (AUTO) 8.6 % (3.0-13.0); NEUTROPHILS % (AUTO) 79.7 % (40.0-77.0); PLATELET COUNT (AUTO) 223 K/uL (130-400); RED BLOOD CELL COUNT(AUTO) 4.02 MIL/uL (4.50-6.20); RED CELL DISTRIBUTION WIDTH 13.2 % (11.0-15.5); WHITE BLOOD COUNT (AUTO) 11.5 K/uL (4.8-10.8)
[2022-02-23 09:00] LABS: ALBUMIN 4.2 g/dL (3.5-5.0); BILIRUBIN,TOTAL 0.7 mg/dL (0.2-1.0); TOTAL PROTEIN, SERUM 9.5 g/dL (6.0-8.3)
[2022-02-23] MEDS ORDERED: METOCLOPRAMIDE 10 MG/2 ML VIAL IVP ONE (09:00)
[2022-02-23] MEDS ORDERED: DiphenhydrAMINE HCL 50 MG/ML VIAL ONE (09:02)
[2022-02-23 09:04] LABS: CREATININE 13.2 mg/dL (0.5-1.5); MAGNESIUM 2.8 mg/dL (1.80-2.40); PHOSPHORUS 7.9 mg/dL (2.5-4.9); POTASSIUM 6.7 mmol/L (3.5-5.1)
[2022-02-23] MEDS ORDERED: CALCIUM GLUC 1GM/10ML VIAL ONE (09:15)
[2022-02-23] MEDS ORDERED: DEXTROSE 50%-WATER 50 ML DISP.SYRIN IV ONE (09:17)
[2022-02-23] MEDS ORDERED: DEXTROSE 50%-WATER 25 GM/50 ML VIAL IV ONE (09:30)
[2022-02-23] MEDS ORDERED: CALCIUM GLUC 1GM 1 GM in 0.9%NACL 100ML 100 ML IV ONE (09:30)
[2022-02-23] MEDS ORDERED: INSULIN HUMULIN R 100 UNIT/ML 3ML IV ONE (09:30)
[2022-02-23] MEDS ORDERED: NA ZIRCON CYCLOSIL(LOKELMA 10GM) PO ONE (09:30)
[2022-02-23] MEDS ORDERED: LORAZEPAM 2 MG/ML 1 ML VIAL ONE (10:14)
[2022-02-23] MEDS ORDERED: LORAZEPAM 2 MG/ML 1 ML VIAL IVP SCH (10:30)
[2022-02-23] MEDS ORDERED: DiphenhydrAMINE HCL 50 MG/ML VIAL IV SCH (11:00)
[2022-02-23] MEDS: HALOPERIDOL INJ 5 MG/ML VIAL IM SCH (12:00)
[2022-02-24] VITALS (19 sets, daily range): BP systolic 89–186; BP diastolic 44–84
[2022-02-24] MEDS ORDERED: ROPI1TAB13 PO
[2022-02-24] MEDS ORDERED: HYDR100T27 PO
[2022-02-24] MEDS ORDERED: PREG150C46 PO
[2022-02-24] MEDS ORDERED: SULF1TAB42 PO
[2022-02-24 02:42] LABS: HEPATITIS B SURFACE ANTIGEN Non-Reactive (Negative)
[2022-02-24 05:21] LABS: BASOPHILS % (AUTO) 0.7 % (0.0-5.0); EOSINOPHILS % (AUTO) 1.6 % (0.0-8.0); HEMATOCRIT 36.2 % (42-54); LYMPHOCYTES % (AUTO) 14.3 % (21.0-51.0); MEAN CORPUSCULAR HEMOGLOBIN 30.8 pg (27.0-33.0); MEAN CORPUSCULAR HGB CONC 32.3 g/dL (32.0-36.0); MEAN CORPUSCULAR VOLUME 95.3 fL (79-99); MONOCYTES % (AUTO) 11.8 % (3.0-13.0); NEUTROPHILS % (AUTO) 71.2 % (40.0-77.0); PLATELET COUNT (AUTO) 222 K/uL (130-400); RED CELL DISTRIBUTION WIDTH 13.2 % (11.0-15.5); WHITE BLOOD COUNT (AUTO) 9.2 K/uL (4.8-10.8)
[2022-02-24 05:41] LABS: ALBUMIN 3.6 g/dL (3.5-5.0); BILIRUBIN,TOTAL 0.5 mg/dL (0.2-1.0); MAGNESIUM 2.6 mg/dL (1.80-2.40); PHOSPHORUS 8.9 mg/dL (2.5-4.9); POTASSIUM 5.3 mmol/L (3.5-5.1); TOTAL PROTEIN, SERUM 8.3 g/dL (6.0-8.3)
[2022-02-24 06:13] LABS: CREATININE 11.3 mg/dL (0.5-1.5)
[2022-02-24] MEDS ORDERED: Vitamin B Complex/Vit C/Folic Acid PO SCH (09:00)
[2022-02-24] MEDS: HALOPERIDOL INJ 5 MG/ML VIAL IM SCH (12:00)
[2022-02-24] MEDS ORDERED: ONDANSETRON 4MG INJ ONE (16:16)
[2022-02-24] MEDS ORDERED: ONDANSETRON 4MG INJ IVP PRN (16:30)
[2022-02-24] MEDS ORDERED: LACTULOSE 20 GM/30 ML UDCUP ONE (18:02)
[2022-02-24] MEDS ORDERED: LACTULOSE 20 GM/30 ML UDCUP PO ONE (19:00)
[2022-02-24] MEDS ORDERED: BISACODYL 10 MG SUPP.RECT RC ONE (19:50)
[2022-02-24] MEDS: QUETIAPINE FUMARATE 25 MG TAB PO SCH (21:31)
[2022-02-24] MEDS: PREGABALIN 75 MG CAPSULE PO SCH (21:31)
[2022-02-24] MEDS: HYDRALAZINE 25MG TABLET PO SCH (21:32)
[2022-02-24] MEDS: SIMVASTATIN 20 MG TABLET PO SCH (21:32)
[2022-02-24] MEDS: CARVEDILOL 25 MG TABLET PO SCH (21:33)
[2022-02-24] MEDS: HEPARIN 5,000 UNIT VIAL SQ SCH (21:34)
[2022-02-25 00:42] VITALS: BP 141/72
[2022-02-25 03:54] VITALS: BP 109/68
[2022-02-25 05:44] LABS: BASOPHILS % (AUTO) 0.4 % (0.0-5.0); EOSINOPHILS % (AUTO) 0.1 % (0.0-8.0); HEMATOCRIT 37.3 % (42-54); LYMPHOCYTES % (AUTO) 15.1 % (21.0-51.0); MEAN CORPUSCULAR HEMOGLOBIN 31.3 pg (27.0-33.0); MEAN CORPUSCULAR HGB CONC 32.4 g/dL (32.0-36.0); MEAN CORPUSCULAR VOLUME 96.4 fL (79-99); MONOCYTES % (AUTO) 10.7 % (3.0-13.0); NEUTROPHILS % (AUTO) 73.4 % (40.0-77.0); PLATELET COUNT (AUTO) 237 K/uL (130-400); RED BLOOD CELL COUNT(AUTO) 3.87 MIL/uL (4.50-6.20); RED CELL DISTRIBUTION WIDTH 13.2 % (11.0-15.5); WHITE BLOOD COUNT (AUTO) 9.2 K/uL (4.8-10.8)
[2022-02-25 06:02] LABS: ALBUMIN 3.7 g/dL (3.5-5.0); BILIRUBIN,TOTAL 0.5 mg/dL (0.2-1.0); MAGNESIUM 2.5 mg/dL (1.80-2.40); PHOSPHORUS 7.6 mg/dL (2.5-4.9); POTASSIUM 5.9 mmol/L (3.5-5.1); TOTAL PROTEIN, SERUM 8.4 g/dL (6.0-8.3)
[2022-02-25 06:05] LABS: CREATININE 9.4 mg/dL (0.5-1.5)
[2022-02-25] MEDS ORDERED: NA ZIRCON CYCLOSIL(LOKELMA 10GM) PO SCH (06:30)
[2022-02-25] MEDS: INSULIN HUMULIN R 100 UNIT/ML 3ML SQ SCH ×4 (07:30→21:50)
[2022-02-25 07:53] VITALS: BP 133/57
[2022-02-25] MEDS: PREGABALIN 75 MG CAPSULE PO SCH ×2 (08:15→21:51)
[2022-02-25] MEDS: PRASUGREL HCL 10 MG TABLET PO SCH (08:16)
[2022-02-25] MEDS: CARVEDILOL 25 MG TABLET PO SCH ×2 (08:16→21:52)
[2022-02-25] MEDS: HYDRALAZINE 25MG TABLET PO SCH ×3 (08:16→21:00)
[2022-02-25] MEDS: HEPARIN 5,000 UNIT VIAL SQ SCH ×2 (08:17→21:54)
[2022-02-25] MEDS: Linaclotide (Linzess) 145 MCG PO SCH (09:00)
[2022-02-25] MEDS ORDERED: LOSARTAN 100 MG TABLET PO SCH (09:00)
[2022-02-25 11:55] VITALS: BP 114/82
[2022-02-25] MEDS ORDERED: LIDOCAINE HCL 1% MDV 50ML VIAL ONE (12:15)
[2022-02-25] MEDS ORDERED: HEPARIN 1,000 UNIT VIAL ONE (12:15)
[2022-02-25] MEDS ORDERED: CALCIUM GLUC 1GM/10ML VIAL IV STA (14:50)
[2022-02-25 16:00] VITALS: BP 104/67
[2022-02-25] MEDS ORDERED: KAYEXALATE 15GM/60ML PO ONE (16:00)
[2022-02-25] MEDS ORDERED: CALCIUM GLUC 1GM 1 GM in 0.9%NACL 100ML 100 ML IV ONE (16:00)
[2022-02-25] MEDS ORDERED: LACTULOSE 20 GM/30 ML UDCUP ONE (16:25)
[2022-02-25] MEDS: SEVELAMER HCL 800 MG TABLET PO SCH (16:26)
[2022-02-25] MEDS ORDERED: LACTULOSE 20 GM/30 ML UDCUP PO PRN (18:00)
[2022-02-25 20:00] VITALS: BP 97/45
[2022-02-25] MEDS: SIMVASTATIN 20 MG TABLET PO SCH (21:50)
[2022-02-25] MEDS: QUETIAPINE FUMARATE 25 MG TAB PO SCH (21:51)
[2022-02-26 00:49] VITALS: BP 106/42
[2022-02-26 04:00] VITALS: BP_SYST 110; BP_SYST 90; BP_DIAS 44; BP_DIAS 57
[2022-02-26 05:29] LABS: BASOPHILS % (AUTO) 0.3 % (0.0-5.0); EOSINOPHILS % (AUTO) 0.4 % (0.0-8.0); HEMATOCRIT 33.8 % (42-54); LYMPHOCYTES % (AUTO) 11.4 % (21.0-51.0); MEAN CORPUSCULAR HEMOGLOBIN 31.4 pg (27.0-33.0); MEAN CORPUSCULAR HGB CONC 32.8 g/dL (32.0-36.0); MEAN CORPUSCULAR VOLUME 95.8 fL (79-99); MONOCYTES % (AUTO) 11.1 % (3.0-13.0); NEUTROPHILS % (AUTO) 76.4 % (40.0-77.0); PLATELET COUNT (AUTO) 209 K/uL (130-400); RED BLOOD CELL COUNT(AUTO) 3.53 MIL/uL (4.50-6.20); RED CELL DISTRIBUTION WIDTH 13.2 % (11.0-15.5); WHITE BLOOD COUNT (AUTO) 11.3 K/uL (4.8-10.8)
[2022-02-26 05:51] LABS: ALBUMIN 3.5 g/dL (3.5-5.0); BILIRUBIN,TOTAL 0.5 mg/dL (0.2-1.0); PHOSPHORUS 8.5 mg/dL (2.5-4.9); POTASSIUM 5.7 mmol/L (3.5-5.1); TOTAL PROTEIN, SERUM 7.7 g/dL (6.0-8.3)
[2022-02-26] MEDS: INSULIN HUMULIN R 100 UNIT/ML 3ML SQ SCH ×4 (06:07→22:11)
[2022-02-26 06:35] LABS: CREATININE 11.1 mg/dL (0.5-1.5)
[2022-02-26 08:00] VITALS: BP 98/37
[2022-02-26] MEDS ORDERED: KAYEXALATE 15GM/60ML PO SCH (08:15)
[2022-02-26] MEDS ORDERED: MIDODRINE HCL 5 MG TABLET PO SCH (08:15)
[2022-02-26] MEDS: Linaclotide (Linzess) 145 MCG PO SCH (09:00)
[2022-02-26] MEDS: PREGABALIN 75 MG CAPSULE PO SCH ×2 (09:46→20:41)
[2022-02-26] MEDS: SEVELAMER HCL 800 MG TABLET PO SCH ×3 (09:46→16:57)
[2022-02-26] MEDS: PRASUGREL HCL 10 MG TABLET PO SCH (09:46)
[2022-02-26] MEDS: HEPARIN 5,000 UNIT VIAL SQ SCH ×2 (09:55→22:11)
[2022-02-26 12:00] VITALS: BP 108/73
[2022-02-26 16:00] VITALS: BP 87/46
[2022-02-26] MEDS ORDERED: SODIUM CHLORIDE 3% FOR INHALATION 4 ML/AMP VIAL.NEB IH ONE (16:46)
[2022-02-26] MEDS ORDERED: MIDODRINE HCL 5 MG TABLET PO ONE (17:30)
[2022-02-26 20:00] VITALS: BP 101/57
[2022-02-26] MEDS: SIMVASTATIN 20 MG TABLET PO SCH (20:42)
[2022-02-26] MEDS: MIDODRINE HCL 5 MG TABLET PO SCH (22:13)
[2022-02-27] VITALS (24 sets, daily range): BP systolic 106–187; BP diastolic 37–94
[2022-02-27] MEDS: MIDODRINE HCL 5 MG TABLET PO SCH ×3 (04:48→22:00)
[2022-02-27 05:09] LABS: BASOPHILS % (AUTO) 0.6 % (0.0-5.0); EOSINOPHILS % (AUTO) 1.2 % (0.0-8.0); HEMATOCRIT 33.8 % (42-54); LYMPHOCYTES % (AUTO) 18.4 % (21.0-51.0); MEAN CORPUSCULAR HEMOGLOBIN 31.1 pg (27.0-33.0); MEAN CORPUSCULAR HGB CONC 32.8 g/dL (32.0-36.0); MEAN CORPUSCULAR VOLUME 94.7 fL (79-99); MONOCYTES % (AUTO) 11.4 % (3.0-13.0); NEUTROPHILS % (AUTO) 67.3 % (40.0-77.0); PLATELET COUNT (AUTO) 265 K/uL (130-400); RED BLOOD CELL COUNT(AUTO) 3.57 MIL/uL (4.50-6.20); RED CELL DISTRIBUTION WIDTH 12.8 % (11.0-15.5); WHITE BLOOD COUNT (AUTO) 10.7 K/uL (4.8-10.8)
[2022-02-27 05:33] LABS: ALBUMIN 3.3 g/dL (3.5-5.0); BILIRUBIN,TOTAL 0.4 mg/dL (0.2-1.0); MAGNESIUM 3.1 mg/dL (1.80-2.40); PHOSPHORUS 7.9 mg/dL (2.5-4.9); POTASSIUM 5.2 mmol/L (3.5-5.1); TOTAL PROTEIN, SERUM 7.4 g/dL (6.0-8.3)
[2022-02-27 05:39] LABS: INR 0.93 (0.85-1.15)
[2022-02-27] MEDS: INSULIN HUMULIN R 100 UNIT/ML 3ML SQ SCH ×4 (05:59→21:06)
[2022-02-27 06:02] LABS: CREATININE 12.5 mg/dL (0.5-1.5)
[2022-02-27] MEDS ORDERED: HEPARIN 10,000 UNIT/10ML (1,000 UNIT/ML) VIAL ONE (07:29)
[2022-02-27] MEDS ORDERED: MIDAZOLAM HCL 1 MG/ML 2ML VIAL ONE (07:29)
[2022-02-27] MEDS ORDERED: IOHEXOL-350 50ML VIAL IV ONE ×2 (07:29→08:01)
[2022-02-27] MEDS ORDERED: LIDOCAINE HCL 1% MDV 50ML VIAL ONE (07:30)
[2022-02-27] MEDS ORDERED: FENTANYL CITRATE PF 50 MCG/1 ML 2ML VIAL ONE (07:30)
[2022-02-27] MEDS: Linaclotide (Linzess) 145 MCG PO SCH (09:00)
[2022-02-27] MEDS: SEVELAMER HCL 800 MG TABLET PO SCH ×3 (12:00→17:00)
[2022-02-27] MEDS: PREGABALIN 75 MG CAPSULE PO SCH ×2 (15:23→20:56)
[2022-02-27] MEDS: PRASUGREL HCL 10 MG TABLET PO SCH (15:26)
[2022-02-27] MEDS: HEPARIN 5,000 UNIT VIAL SQ SCH ×2 (15:34→21:05)
[2022-02-27] MEDS: SIMVASTATIN 20 MG TABLET PO SCH (20:56)
[2022-02-28] VITALS (7 sets, daily range): BP systolic 112–182; BP diastolic 53–92
[2022-02-28 04:50] LABS: BASOPHILS % (AUTO) 0.6 % (0.0-5.0); EOSINOPHILS % (AUTO) 1.4 % (0.0-8.0); HEMATOCRIT 35.4 % (42-54); LYMPHOCYTES % (AUTO) 16.2 % (21.0-51.0); MEAN CORPUSCULAR HEMOGLOBIN 30.7 pg (27.0-33.0); MEAN CORPUSCULAR HGB CONC 31.6 g/dL (32.0-36.0); MONOCYTES % (AUTO) 10.6 % (3.0-13.0); NEUTROPHILS % (AUTO) 70.2 % (40.0-77.0); PLATELET COUNT (AUTO) 261 K/uL (130-400); RED BLOOD CELL COUNT(AUTO) 3.65 MIL/uL (4.50-6.20); RED CELL DISTRIBUTION WIDTH 12.9 % (11.0-15.5); WHITE BLOOD COUNT (AUTO) 10.9 K/uL (4.8-10.8)
[2022-02-28 05:10] LABS: ALBUMIN 3.4 g/dL (3.5-5.0); BILIRUBIN,TOTAL 0.4 mg/dL (0.2-1.0); PHOSPHORUS 5.6 mg/dL (2.5-4.9); POTASSIUM 4.5 mmol/L (3.5-5.1); TOTAL PROTEIN, SERUM 7.9 g/dL (6.0-8.3)
[2022-02-28 05:20] LABS: CREATININE 9.6 mg/dL (0.5-1.5)
[2022-02-28] MEDS: INSULIN HUMULIN R 100 UNIT/ML 3ML SQ SCH ×4 (06:08→21:03)
[2022-02-28] MEDS: Linaclotide (Linzess) 145 MCG PO SCH (09:00)
[2022-02-28] MEDS: PREGABALIN 75 MG CAPSULE PO SCH ×2 (10:03→20:53)
[2022-02-28] MEDS: SEVELAMER HCL 800 MG TABLET PO SCH ×3 (10:04→16:43)
[2022-02-28] MEDS: HEPARIN 5,000 UNIT VIAL SQ SCH ×2 (10:07→21:02)
[2022-02-28] MEDS: PRASUGREL HCL 10 MG TABLET PO SCH (10:22)
[2022-02-28] MEDS: SIMVASTATIN 20 MG TABLET PO SCH (20:53)
[2022-03-01] VITALS (17 sets, daily range): BP systolic 87–191; BP diastolic 57–97
[2022-03-01] MEDS: INSULIN HUMULIN R 100 UNIT/ML 3ML SQ SCH ×3 (06:10→16:30)
[2022-03-01] MEDS: PREGABALIN 75 MG CAPSULE PO SCH (08:25)
[2022-03-01] MEDS: SEVELAMER HCL 800 MG TABLET PO SCH ×3 (08:25→17:00)
[2022-03-01] MEDS: HEPARIN 5,000 UNIT VIAL SQ SCH (08:29)
[2022-03-01] MEDS: Linaclotide (Linzess) 145 MCG PO SCH (09:00)
[2022-03-01] MEDS: PRASUGREL HCL 10 MG TABLET PO SCH (09:39)
[2022-03-01] MEDS ORDERED: ALPRAZOLAM 0.25 MG TABLET PO SCH (14:00)
== END 2022-03-01 17:30 | disposition home or self-care (01) | DRG 628 ==
LOC: EDH 08:20 → EDHIP 15:48 → OBSVTOIN 15:48 → 3AH 20:07
PROVIDERS: ADMIT Internal Medicine Critical Care Medicine; ATTEND Internal Medicine Critical Care Medicine
PROC: 5A1D70Z Performance of Urinary Filtration, Intermittent, Less than 6 Hours Per Day (ICD-10-PCS; 2022-02-23)
PROC: 5A1D70Z Performance of Urinary Filtration, Intermittent, Less than 6 Hours Per Day (ICD-10-PCS; 2022-02-24)
PROC: 037Y3ZZ Dilation of Upper Artery, Percutaneous Approach (ICD-10-PCS; principal; 2022-02-27)
PROC: B51W1ZZ Fluoroscopy of Dialysis Shunt/Fistula using Low Osmolar Contrast (ICD-10-PCS; 2022-02-27)
PROC: 5A1D70Z Performance of Urinary Filtration, Intermittent, Less than 6 Hours Per Day (ICD-10-PCS; 2022-02-27)
PROC: 5A1D70Z Performance of Urinary Filtration, Intermittent, Less than 6 Hours Per Day (ICD-10-PCS; 2022-03-01)
DX: E87.5 Hyperkalemia (principal); N18.6 End stage renal disease; I12.0 Hypertensive chronic kidney disease with stage 5 chronic kidney disease or end stage renal disease; E87.70 Fluid overload, unspecified; E83.39 Other disorders of phosphorus metabolism; E11.22 Type 2 diabetes mellitus with diabetic chronic kidney disease; H54.8 Legal blindness, as defined in USA; D64.9 Anemia, unspecified; D72.829 Elevated white blood cell count, unspecified; E78.00 Pure hypercholesterolemia, unspecified; E78.5 Hyperlipidemia, unspecified; K59.00 Constipation, unspecified; Z79.4 Long term (current) use of insulin; Z79.899 Other long term (current) drug therapy; Z91.19 Patient's noncompliance with other medical treatment and regimen; Z99.2 Dependence on renal dialysis
CPT/HCPCS: 36415; 36901; 36902; 71045; 80053; 82948; 83690; 83735; 84100; 84132; 84145; 85025; 85610; 86704; 86706; 87040; 87071; 87077; 87186; 87205; 87340; 90935; 93005; 99156; 99157; 99291; C1769; C1894; G0378; J0610; J1200; J1644; J1815; J2060; J2250; J2405; J2765; J3010; J3490; J7070; Q9967

== ENCOUNTER 2022-05-04 18:03 | Emergency (ER) | payer OTHER ==
[~2022-05-04] VITALS: Ht 167.6 cm; Wt 99.3 kg
[~2022-05-04 18:03] MED LIST changes: +HYDR100T27 PO; +PREG150C46 PO; -PREG75 PO; -ROPI0.257 PO; +ROPI1TAB13 PO
[2022-05-04 18:58] LABS: BASOPHILS % (AUTO) 0.3 % (0.0-5.0); EOSINOPHILS % (AUTO) 0.1 % (0.0-8.0); HEMATOCRIT 36.7 % (42-54); LYMPHOCYTES % (AUTO) 9.7 % (21.0-51.0); MEAN CORPUSCULAR HEMOGLOBIN 32.1 pg (27.0-33.0); MEAN CORPUSCULAR HGB CONC 32.2 g/dL (32.0-36.0); MEAN CORPUSCULAR VOLUME 99.7 fL (79-99); MONOCYTES % (AUTO) 9.2 % (3.0-13.0); NEUTROPHILS % (AUTO) 80.4 % (40.0-77.0); PLATELET COUNT (AUTO) 202 K/uL (130-400); RED BLOOD CELL COUNT(AUTO) 3.68 MIL/uL (4.50-6.20); RED CELL DISTRIBUTION WIDTH 15.5 % (11.0-15.5); WHITE BLOOD COUNT (AUTO) 9.4 K/uL (4.8-10.8)
[2022-05-04] MEDS ORDERED: FAMOTIDINE 20MG VIAL IV ONE (19:00)
[2022-05-04] MEDS ORDERED: MORPHINE 2 MG SYG IVP ONE (19:00)
[2022-05-04] MEDS ORDERED: ONDANSETRON 4MG INJ IVP ONE (19:00)
[2022-05-04 19:13] LABS: ALBUMIN 3.8 g/dL (3.5-5.0); POTASSIUM 4.7 mmol/L (3.5-5.1); TOTAL PROTEIN, SERUM 8.1 g/dL (6.0-8.3)
[2022-05-04] MEDS ORDERED: MAG/ALUM/SIMETH 30 ML UDCUP PO ONE (21:00)
[2022-05-04] MEDS ORDERED: LIDOCAINE HCL 2% VISCOUS 15 ML UDCUP PO ONE (21:00)
[2022-05-04 21:30] VITALS: BP 163/88
[2022-05-04] MEDS ORDERED: ONDA4TAB10 PO (21:56)
[2022-05-04] MEDS ORDERED: LACT10SO9 PO (21:56)
== END 2022-05-04 22:10 | disposition home or self-care (01) ==
LOC: EDH 18:03
DX: K59.00 Constipation, unspecified (principal); K29.70 Gastritis, unspecified, without bleeding; I12.0 Hypertensive chronic kidney disease with stage 5 chronic kidney disease or end stage renal disease; E11.22 Type 2 diabetes mellitus with diabetic chronic kidney disease; N18.6 End stage renal disease; Z20.822 Contact with and (suspected) exposure to COVID-19; E78.00 Pure hypercholesterolemia, unspecified; Z79.4 Long term (current) use of insulin; Z79.899 Other long term (current) drug therapy
CPT/HCPCS: 99285; 74176; 96374; 71045; 96375; 87635; 84484; 80053; 83880; 83690; 85025; 87804 ×2; 36415; 93005; C9803; J3490; J2405

== ENCOUNTER 2022-05-07 12:46 | Emergency (ER) | payer OTHER ==
[~2022-05-07] VITALS: Ht 162.6 cm; Wt 99.8 kg
[~2022-05-07 12:46] MED LIST changes: +LACT10SO9 PO; +ONDA4TAB10 PO
[2022-05-07 13:10] LABS: BASOPHILS % (AUTO) 0.4 % (0.0-5.0); EOSINOPHILS % (AUTO) 0.4 % (0.0-8.0); LYMPHOCYTES % (AUTO) 14.2 % (21.0-51.0); MEAN CORPUSCULAR HEMOGLOBIN 32.5 pg (27.0-33.0); MEAN CORPUSCULAR HGB CONC 32.4 g/dL (32.0-36.0); MEAN CORPUSCULAR VOLUME 100.3 fL (79-99); MONOCYTES % (AUTO) 11.8 % (3.0-13.0); NEUTROPHILS % (AUTO) 72.9 % (40.0-77.0); PLATELET COUNT (AUTO) 186 K/uL (130-400); RED BLOOD CELL COUNT(AUTO) 3.69 MIL/uL (4.50-6.20); RED CELL DISTRIBUTION WIDTH 14.9 % (11.0-15.5); WHITE BLOOD COUNT (AUTO) 7.2 K/uL (4.8-10.8)
[2022-05-07] MEDS ORDERED: MAG/ALUM/SIMETH 30 ML UDCUP PO ONE (13:30)
[2022-05-07] MEDS ORDERED: MORPHINE 2 MG SYG IVP ONE (13:30)
[2022-05-07] MEDS ORDERED: PANTOPRAZOLE 40 MG/VIAL IVP ONE (13:30)
[2022-05-07] MEDS ORDERED: LIDOCAINE HCL 2% VISCOUS 15 ML UDCUP PO ONE (13:30)
[2022-05-07] MEDS ORDERED: ONDANSETRON 4MG INJ IVP ONE (13:30)
[2022-05-07 13:57] LABS: ALBUMIN 3.9 g/dL (3.5-5.0); POTASSIUM 5.6 mmol/L (3.5-5.1); TOTAL PROTEIN, SERUM 7.9 g/dL (6.0-8.3)
[2022-05-07 14:03] LABS: CREATININE 11.5 mg/dL (0.5-1.5)
[2022-05-07] MEDS ORDERED: 0.9% NACL 250ML 250 ML IV ONE (14:30)
[2022-05-07] MEDS ORDERED: KAYEXALATE 15GM/60ML PO ONE (15:30)
[2022-05-07 15:31] VITALS: BP 164/62
== END 2022-05-07 16:13 | disposition home or self-care (01) ==
LOC: EDH 12:46
DX: E11.65 Type 2 diabetes mellitus with hyperglycemia (principal); E86.0 Dehydration; R10.13 Epigastric pain; R11.2 Nausea with vomiting, unspecified; I12.0 Hypertensive chronic kidney disease with stage 5 chronic kidney disease or end stage renal disease; E11.22 Type 2 diabetes mellitus with diabetic chronic kidney disease; N18.6 End stage renal disease; E78.00 Pure hypercholesterolemia, unspecified; Z79.4 Long term (current) use of insulin; Z79.899 Other long term (current) drug therapy; Z95.5 Presence of coronary angioplasty implant and graft
CPT/HCPCS: 99284; 96374; 96375; 84484; 80053; 83690; 85025; 36415; 93005; J2405; C9113

== ENCOUNTER 2022-07-17 00:18 | Emergency (ER) | payer OTHER ==
[~2022-07-17] VITALS: Ht 162.6 cm; Wt 105.2 kg
[2022-07-17] MEDS ORDERED: MAGNESIUM CITRATE 296 ML SOLUTION PO ONE (01:00)
[2022-07-17] MEDS ORDERED: LACTULOSE 20 GM/30 ML UDCUP PO ONE (01:30)
[2022-07-17] MEDS ORDERED: BISACODYL 5 MG TABLET.DR PO SCH (01:30)
[2022-07-17] MEDS ORDERED: ONDANSETRON ODT 4MG TAB SL ONE (02:30)
[2022-07-17] MEDS ORDERED: MAGN296S73 PO (03:30)
[2022-07-17 03:45] VITALS: BP 167/81
== END 2022-07-17 04:44 | disposition home or self-care (01) ==
LOC: EDH 00:18
DX: K59.00 Constipation, unspecified (principal); I12.0 Hypertensive chronic kidney disease with stage 5 chronic kidney disease or end stage renal disease; N18.6 End stage renal disease; E11.22 Type 2 diabetes mellitus with diabetic chronic kidney disease; Z79.4 Long term (current) use of insulin; Z99.2 Dependence on renal dialysis
CPT/HCPCS: 74018

== ENCOUNTER 2022-08-11 13:15 | Inpatient (IN) | payer OTHER ==
[~2022-08-11] VITALS: Ht 162.6 cm; Wt 91.4 kg
[~2022-08-11 13:15] MED LIST changes: +MAGN296S73 PO
[2022-08-11] MEDS ORDERED: HYDRALAZINE 20MG/ML VIAL IV ONE (13:30)
[2022-08-11 13:37] LABS: BASOPHILS % (AUTO) 0.4 % (0.0-5.0); EOSINOPHILS % (AUTO) 1.9 % (0.0-8.0); HEMATOCRIT 37.1 % (42-54); LYMPHOCYTES % (AUTO) 13.2 % (21.0-51.0); MEAN CORPUSCULAR HGB CONC 32.3 g/dL (32.0-36.0); MEAN CORPUSCULAR VOLUME 95.9 fL (79-99); MONOCYTES % (AUTO) 10.6 % (3.0-13.0); NEUTROPHILS % (AUTO) 73.5 % (40.0-77.0); PLATELET COUNT (AUTO) 159 K/uL (130-400); RED BLOOD CELL COUNT(AUTO) 3.87 MIL/uL (4.50-6.20); RED CELL DISTRIBUTION WIDTH 13.4 % (11.0-15.5); WHITE BLOOD COUNT (AUTO) 7.4 K/uL (4.8-10.8)
[2022-08-11 13:50] LABS: CREATININE 4.2 mg/dL (0.5-1.5); POTASSIUM 3.5 mmol/L (3.5-5.1)
[2022-08-11 13:55] LABS: ALBUMIN 3.7 g/dL (3.5-5.0); TOTAL PROTEIN, SERUM 7.7 g/dL (6.0-8.3)
[2022-08-11] MEDS: NICARDIPINE IV SCH ×2 (15:29→22:42)
[2022-08-11] MEDS: NACL 0.9% IV SCH ×2 (15:29→22:42)
[2022-08-11] MEDS ORDERED: ONDANSETRON 4MG INJ ONE (16:29)
[2022-08-11] MEDS ORDERED: ONDANSETRON 4MG INJ IVP ONE (16:30)
[2022-08-11] MEDS ORDERED: HYDRALAZINE 20MG/ML VIAL IV PRN (19:30)
[2022-08-11] MEDS ORDERED: ACETAMINOPHEN 325 MG TAB PO PRN (19:30)
[2022-08-11] MEDS ORDERED: ONDANSETRON 4MG INJ IVP PRN (19:30)
[2022-08-11] MEDS: 0.9%NACL 1000ML 1,000 ML IV SCH (20:19)
[2022-08-11] MEDS: INSULIN HUMULIN R 100 UNIT/ML 3ML SQ SCH (20:46)
[2022-08-11] MEDS ORDERED: NICARDIPINE 25MG INJ IV ONE (22:37)
[2022-08-11] MEDS ORDERED: ACETAMINOPHEN 650 MG SUPPOSITORY RC PRN (23:30)
[2022-08-11] MEDS ORDERED: ASPIRIN 300 MG SUPPOSITORY PR ONE (23:30)
[2022-08-11] MEDS ORDERED: ATORVASTATIN 40 MG TABLET PO ONE (23:30)
[2022-08-12] VITALS (13 sets, daily range): BP systolic 135–168; BP diastolic 59–94
[2022-08-12] MEDS: 0.9%NACL 1000ML 1,000 ML IV SCH (03:41)
[2022-08-12] MEDS ORDERED: NICARDIPINE 25MG INJ IV ONE (05:08)
[2022-08-12] MEDS: NACL 0.9% IV SCH ×2 (05:12→21:38)
[2022-08-12] MEDS: NICARDIPINE IV SCH ×2 (05:12→21:38)
[2022-08-12 05:26] LABS: HEMATOCRIT 36.1 % (42-54); MEAN CORPUSCULAR HEMOGLOBIN 30.9 pg (27.0-33.0); MEAN CORPUSCULAR HGB CONC 32.1 g/dL (32.0-36.0); MEAN CORPUSCULAR VOLUME 96.3 fL (79-99); RED BLOOD CELL COUNT(AUTO) 3.75 MIL/uL (4.50-6.20); RED CELL DISTRIBUTION WIDTH 13.5 % (11.0-15.5); WHITE BLOOD COUNT (AUTO) 8.4 K/uL (4.8-10.8)
[2022-08-12 06:01] LABS: CREATININE 5.7 mg/dL (0.5-1.5); PHOSPHORUS 2.9 mg/dL (2.5-4.9); THYROID STIMULATING HORMONE 0.84 uIU/mL (0.36-3.74)
[2022-08-12] MEDS: INSULIN HUMULIN R 100 UNIT/ML 3ML SQ SCH ×4 (07:30→20:08)
[2022-08-12] MEDS: ASPIRIN 81MG CHEW TAB PO SCH (08:40)
[2022-08-12 10:27] LABS: HEMOGLOBIN A1C 8.4 % (4.0-6.0)
[2022-08-12 11:55] LABS: INR 0.94 (0.85-1.15); PROTHROMBIN TIME 10.3 SEC (9.6-11.6)
[2022-08-12 11:56] LABS: PARTIAL THROMBOPLASTIN TIME 24.9 SEC (26.3-35.5)
[2022-08-12 12:04] LABS: ABG BASE EXCESS 1.9 mmol/L (-2.0-3.0); ABG HCO3 27.2 mmol/L (21.0-28.0); ABG OXYGEN SATURATION 97.2 % (95.0-99.0); ABG PCO2 45 mmHg (35-48)
[2022-08-12] MEDS ORDERED: Vitamin B Complex/Vit C/Folic Acid PO ONE (16:00)
[2022-08-12] MEDS: ENOXAPARIN SODIUM 30 MG/0.3 ML SQ SCH (16:12)
[2022-08-12] MEDS ORDERED: AMLO-257 PO (18:23)
[2022-08-12] MEDS ORDERED: SEVE800T7 PO (18:23)
[2022-08-12] MEDS ORDERED: INSU300I3 SQ (18:23)
[2022-08-12] MEDS: ATORVASTATIN 40 MG TABLET PO SCH (20:35)
[2022-08-12] MEDS: METOPROLOL TARTRATE 50 MG TAB PO SCH (20:35)
[2022-08-13] VITALS (73 sets, daily range): BP systolic 123–226; BP diastolic 57–114
[2022-08-13] MEDS ORDERED: NICARDIPINE 25MG INJ IV ONE (02:34)
[2022-08-13 03:12] LABS: APPEARANCE,URINE CLEAR (CLEAR); BILIRUBIN,URINE NEGATIVE (NEGATIVE); COLOR,URINE LIGHT-YELLOW (YELLOW); GLUCOSE, URINE (UA) 300 mg/dL (NEGATIVE); KETONES,URINE NEGATIVE (NEGATIVE); LEUKOCYTE ESTERASE ,URINE NEGATIVE Leu/uL (NEGATIVE); NITRATE,URINE NEGATIVE (NEGATIVE); OCCULT BLOOD,URINE NEGATIVE (NEGATIVE); PROTEIN,URINE 600 mg/dL (NEGATIVE); UROBILINOGEN,URINE 0.2 mg/dL (0.2-1.0)
[2022-08-13 03:37] LABS: BACTERIA,URINE None Seen /HPF (None Seen); SQUAMOUS EPITHELIAL CELL,UR Few /HPF (0-2); WBC,URINE 0-1 /HPF (0-1)
[2022-08-13 04:00] LABS: BASOPHILS % (AUTO) 0.3 % (0.0-5.0); HEMATOCRIT 33.6 % (42-54); LYMPHOCYTES % (AUTO) 11.3 % (21.0-51.0); MEAN CORPUSCULAR HEMOGLOBIN 31.1 pg (27.0-33.0); MEAN CORPUSCULAR HGB CONC 32.4 g/dL (32.0-36.0); MEAN CORPUSCULAR VOLUME 95.7 fL (79-99); MONOCYTES % (AUTO) 11.4 % (3.0-13.0); NEUTROPHILS % (AUTO) 74.4 % (40.0-77.0); PLATELET COUNT (AUTO) 167 K/uL (130-400); RED BLOOD CELL COUNT(AUTO) 3.51 MIL/uL (4.50-6.20); RED CELL DISTRIBUTION WIDTH 13.4 % (11.0-15.5); WHITE BLOOD COUNT (AUTO) 8.6 K/uL (4.8-10.8)
[2022-08-13 04:16] LABS: ALBUMIN 3.1 g/dL (3.5-5.0); CREATININE 7.2 mg/dL (0.5-1.5); POTASSIUM 4.4 mmol/L (3.5-5.1); TOTAL PROTEIN, SERUM 6.5 g/dL (6.0-8.3)
[2022-08-13] MEDS: INSULIN HUMULIN R 100 UNIT/ML 3ML SQ SCH ×4 (06:13→21:24)
[2022-08-13] MEDS: LOSARTAN 50 MG TABLET PO SCH ×2 (07:38→10:00)
[2022-08-13] MEDS: Vitamin B Complex/Vit C/Folic Acid PO SCH (07:55)
[2022-08-13] MEDS: METOPROLOL TARTRATE 50 MG TAB PO SCH ×2 (07:56→21:22)
[2022-08-13] MEDS: ENOXAPARIN SODIUM 30 MG/0.3 ML SQ SCH (07:56)
[2022-08-13] MEDS: ASPIRIN 81MG CHEW TAB PO SCH (07:56)
[2022-08-13] MEDS: THIAMINE HCL 100 MG/ML 2ML VIAL IVP SCH (07:56)
[2022-08-13] MEDS ORDERED: LACTULOSE 20 GM/30 ML UDCUP PO PRN (10:00)
[2022-08-13] MEDS ORDERED: BISACODYL 10 MG SUPP.RECT RC PRN (10:00)
[2022-08-13] MEDS ORDERED: BISACODYL 10 MG SUPP.RECT RC SCH (10:00)
[2022-08-13] MEDS ORDERED: LACTULOSE 20 GM/30 ML UDCUP PO SCH (10:00)
[2022-08-13] MEDS ORDERED: METO10TA41 PO (10:44)
[2022-08-13] MEDS ORDERED: BACL10TA PO (10:44)
[2022-08-13] MEDS ORDERED: PANT40TA54 PO (10:44)
[2022-08-13 14:36] LABS: PHOSPHORUS 3.4 mg/dL (2.5-4.9); POTASSIUM 4.7 mmol/L (3.5-5.1)
[2022-08-13 14:38] LABS: CREATININE 7.9 mg/dL (0.5-1.5)
[2022-08-13] MEDS ORDERED: ROPINIROLE HCL 1 MG TABLET PO PRN (15:00)
[2022-08-13] MEDS ORDERED: PHARMACY COMMUNICATION MISC SCH (16:00)
[2022-08-13] MEDS: CLONIDINE HCL 0.2 MG TABLET PO PRN (16:30)
[2022-08-13] MEDS ORDERED: MAGNESIUM SULFATE 1 GM in 0.9%NACL 50ML 50 ML IV ONE (16:30)
[2022-08-13] MEDS: ATORVASTATIN 40 MG TABLET PO SCH (21:22)
[2022-08-13] MEDS: HYDRALAZINE 20MG/ML VIAL IV PRN ×2 (21:22→23:30)
[2022-08-13] MEDS: HEPARIN 5,000 UNIT VIAL SQ SCH (21:23)
[2022-08-14] VITALS (44 sets, daily range): BP systolic 138–237; BP diastolic 57–84
[2022-08-14] MEDS: CLONIDINE HCL 0.2 MG TABLET PO PRN (00:42)
[2022-08-14] MEDS: HYDRALAZINE 20MG/ML VIAL IV PRN (01:19)
[2022-08-14] MEDS: INSULIN HUMULIN R 100 UNIT/ML 3ML SQ SCH ×4 (06:38→21:15)
[2022-08-14 06:42] LABS: BASOPHILS % (AUTO) 0.3 % (0.0-5.0); EOSINOPHILS % (AUTO) 1.3 % (0.0-8.0); HEMATOCRIT 34.2 % (42-54); LYMPHOCYTES % (AUTO) 12.6 % (21.0-51.0); MEAN CORPUSCULAR HEMOGLOBIN 31.3 pg (27.0-33.0); MEAN CORPUSCULAR HGB CONC 32.5 g/dL (32.0-36.0); MEAN CORPUSCULAR VOLUME 96.3 fL (79-99); MONOCYTES % (AUTO) 10.9 % (3.0-13.0); NEUTROPHILS % (AUTO) 74.4 % (40.0-77.0); PLATELET COUNT (AUTO) 181 K/uL (130-400); RED BLOOD CELL COUNT(AUTO) 3.55 MIL/uL (4.50-6.20); RED CELL DISTRIBUTION WIDTH 13.7 % (11.0-15.5); WHITE BLOOD COUNT (AUTO) 9.4 K/uL (4.8-10.8)
[2022-08-14 07:40] LABS: ALBUMIN 3.1 g/dL (3.5-5.0); CREATININE 8.9 mg/dL (0.5-1.5); POTASSIUM 4.8 mmol/L (3.5-5.1); TOTAL PROTEIN, SERUM 6.6 g/dL (6.0-8.3)
[2022-08-14] MEDS: Vitamin B Complex/Vit C/Folic Acid PO SCH (08:06)
[2022-08-14] MEDS: THIAMINE HCL 100 MG/ML 2ML VIAL IVP SCH (08:06)
[2022-08-14] MEDS: HEPARIN 5,000 UNIT VIAL SQ SCH ×2 (08:06→21:14)
[2022-08-14] MEDS: LOSARTAN 50 MG TABLET PO SCH (08:07)
[2022-08-14] MEDS: ASPIRIN 81MG CHEW TAB PO SCH (08:07)
[2022-08-14] MEDS: PANTOPRAZOLE 40 MG TAB DR PO SCH (08:07)
[2022-08-14] MEDS: METOPROLOL TARTRATE 50 MG TAB PO SCH ×2 (08:07→21:13)
[2022-08-14] MEDS ORDERED: IOHEXOL 350 MG/ML 100ML INFUS..BTL IV ONE (09:09)
[2022-08-14] MEDS: HYDRALAZINE 25MG TABLET PO SCH ×2 (14:26→21:13)
[2022-08-14 19:24] LABS: HEPATITIS B SURFACE ANTIGEN Non-Reactive (Nonreactive)
[2022-08-14] MEDS: ATORVASTATIN 40 MG TABLET PO SCH (21:13)
[2022-08-14] MEDS ORDERED: NACL NASAL SPRAY 120 SPRAY/BOTTLE NS PRN (22:00)
[2022-08-15] VITALS (10 sets, daily range): BP systolic 149–202; BP diastolic 61–92
[2022-08-15] MEDS: HYDRALAZINE 20MG/ML VIAL IV PRN ×2 (00:33→12:24)
[2022-08-15 03:43] LABS: BASOPHILS % (AUTO) 0.3 % (0.0-5.0); EOSINOPHILS % (AUTO) 0.9 % (0.0-8.0); HEMATOCRIT 31.4 % (42-54); LYMPHOCYTES % (AUTO) 11.2 % (21.0-51.0); MEAN CORPUSCULAR HEMOGLOBIN 31.1 pg (27.0-33.0); MEAN CORPUSCULAR HGB CONC 32.5 g/dL (32.0-36.0); MEAN CORPUSCULAR VOLUME 95.7 fL (79-99); MONOCYTES % (AUTO) 12.4 % (3.0-13.0); NEUTROPHILS % (AUTO) 74.6 % (40.0-77.0); PLATELET COUNT (AUTO) 145 K/uL (130-400); RED BLOOD CELL COUNT(AUTO) 3.28 MIL/uL (4.50-6.20); RED CELL DISTRIBUTION WIDTH 13.5 % (11.0-15.5)
[2022-08-15 03:55] LABS: ALBUMIN 3.1 g/dL (3.5-5.0); CREATININE 7.6 mg/dL (0.5-1.5); POTASSIUM 4.2 mmol/L (3.5-5.1); TOTAL PROTEIN, SERUM 6.6 g/dL (6.0-8.3)
[2022-08-15] MEDS: INSULIN HUMULIN R 100 UNIT/ML 3ML SQ SCH ×4 (07:30→19:35)
[2022-08-15] MEDS: LOSARTAN 50 MG TABLET PO SCH (08:26)
[2022-08-15] MEDS: METOPROLOL TARTRATE 50 MG TAB PO SCH ×2 (08:26→19:35)
[2022-08-15] MEDS: PANTOPRAZOLE 40 MG TAB DR PO SCH (08:26)
[2022-08-15] MEDS: HYDRALAZINE 25MG TABLET PO SCH ×3 (08:26→19:33)
[2022-08-15] MEDS: ASPIRIN 81MG CHEW TAB PO SCH (08:27)
[2022-08-15] MEDS: Vitamin B Complex/Vit C/Folic Acid PO SCH (08:27)
[2022-08-15] MEDS: HEPARIN 5,000 UNIT VIAL SQ SCH ×2 (08:30→19:34)
[2022-08-15] MEDS: THIAMINE HCL 100 MG/ML 2ML VIAL IVP SCH (08:32)
[2022-08-15] MEDS: CLONIDINE HCL 0.2 MG TABLET PO PRN (13:29)
[2022-08-15] MEDS ORDERED: METOPROLOL TARTRATE 50 MG TAB ONE (19:30)
[2022-08-15] MEDS: ATORVASTATIN 40 MG TABLET PO SCH (19:33)
[2022-08-16] VITALS (21 sets, daily range): BP systolic 157–213; BP diastolic 59–105
[2022-08-16 03:52] LABS: BASOPHILS % (AUTO) 0.3 % (0.0-5.0); HEMATOCRIT 30.1 % (42-54); LYMPHOCYTES % (AUTO) 14.8 % (21.0-51.0); MEAN CORPUSCULAR HEMOGLOBIN 31.1 pg (27.0-33.0); MEAN CORPUSCULAR HGB CONC 32.6 g/dL (32.0-36.0); MEAN CORPUSCULAR VOLUME 95.6 fL (79-99); MONOCYTES % (AUTO) 13.2 % (3.0-13.0); NEUTROPHILS % (AUTO) 70.1 % (40.0-77.0); PLATELET COUNT (AUTO) 152 K/uL (130-400); RED BLOOD CELL COUNT(AUTO) 3.15 MIL/uL (4.50-6.20); RED CELL DISTRIBUTION WIDTH 13.7 % (11.0-15.5)
[2022-08-16] MEDS: HYDRALAZINE 20MG/ML VIAL IV PRN ×2 (04:02→14:05)
[2022-08-16 04:13] LABS: ALBUMIN 3.1 g/dL (3.5-5.0); POTASSIUM 4.4 mmol/L (3.5-5.1); TOTAL PROTEIN, SERUM 6.6 g/dL (6.0-8.3)
[2022-08-16 04:17] LABS: CREATININE 9.3 mg/dL (0.5-1.5)
[2022-08-16] MEDS: INSULIN HUMULIN R 100 UNIT/ML 3ML SQ SCH ×4 (05:24→20:26)
[2022-08-16] MEDS: METOPROLOL TARTRATE 50 MG TAB PO SCH ×2 (07:43→20:24)
[2022-08-16] MEDS: LOSARTAN 50 MG TABLET PO SCH (07:43)
[2022-08-16] MEDS: ASPIRIN 81MG CHEW TAB PO SCH (07:44)
[2022-08-16] MEDS: THIAMINE HCL 100 MG/ML 2ML VIAL IVP SCH (07:44)
[2022-08-16] MEDS: PANTOPRAZOLE 40 MG TAB DR PO SCH (07:44)
[2022-08-16] MEDS: Vitamin B Complex/Vit C/Folic Acid PO SCH (07:44)
[2022-08-16] MEDS: HEPARIN 5,000 UNIT VIAL SQ SCH ×2 (07:53→20:24)
[2022-08-16] MEDS: HYDRALAZINE 25MG TABLET PO SCH (08:12)
[2022-08-16] MEDS: AMLODIPINE 5 MG TAB PO SCH (08:19)
[2022-08-16] MEDS ORDERED: HYDRALAZINE 25MG TABLET PO SCH (09:00)
[2022-08-16] MEDS ORDERED: MINOXIDIL 2.5 MG TAB PO STA (11:00)
[2022-08-16] MEDS: CLONIDINE HCL 0.2 MG TABLET PO PRN (12:32)
[2022-08-16] MEDS: ATORVASTATIN 40 MG TABLET PO SCH (20:23)
[2022-08-16] MEDS: MINOXIDIL 2.5 MG TAB PO SCH (20:23)
[2022-08-16] MEDS ORDERED: MINOXIDIL 2.5 MG TAB PO SCH (21:00)
[2022-08-17] VITALS: BP 158/70
[2022-08-17 03:57] LABS: BASOPHILS % (AUTO) 0.5 % (0.0-5.0); EOSINOPHILS % (AUTO) 1.2 % (0.0-8.0); HEMATOCRIT 35.2 % (42-54); LYMPHOCYTES % (AUTO) 12.9 % (21.0-51.0); MEAN CORPUSCULAR HEMOGLOBIN 30.5 pg (27.0-33.0); MEAN CORPUSCULAR HGB CONC 32.1 g/dL (32.0-36.0); MEAN CORPUSCULAR VOLUME 95.1 fL (79-99); MONOCYTES % (AUTO) 13.3 % (3.0-13.0); NEUTROPHILS % (AUTO) 71.8 % (40.0-77.0); PLATELET COUNT (AUTO) 190 K/uL (130-400); RED CELL DISTRIBUTION WIDTH 13.3 % (11.0-15.5); WHITE BLOOD COUNT (AUTO) 7.7 K/uL (4.8-10.8)
[2022-08-17 04:00] VITALS: BP 157/69
[2022-08-17 04:30] LABS: POTASSIUM 4.2 mmol/L (3.5-5.1)
[2022-08-17] MEDS: INSULIN HUMULIN R 100 UNIT/ML 3ML SQ SCH ×2 (06:32→11:49)
[2022-08-17] MEDS: ASPIRIN 81MG CHEW TAB PO SCH (08:25)
[2022-08-17] MEDS: LOSARTAN 50 MG TABLET PO SCH (08:26)
[2022-08-17] MEDS: MINOXIDIL 2.5 MG TAB PO SCH (08:26)
[2022-08-17] MEDS: PANTOPRAZOLE 40 MG TAB DR PO SCH (08:26)
[2022-08-17] MEDS: METOPROLOL TARTRATE 50 MG TAB PO SCH (08:26)
[2022-08-17] MEDS: Vitamin B Complex/Vit C/Folic Acid PO SCH (08:27)
[2022-08-17] MEDS: AMLODIPINE 5 MG TAB PO SCH (08:28)
[2022-08-17] MEDS: THIAMINE HCL 100 MG/ML 2ML VIAL IVP SCH (08:28)
[2022-08-17] MEDS: HEPARIN 5,000 UNIT VIAL SQ SCH (08:36)
[2022-08-17 08:49] VITALS: BP 194/81
[2022-08-17] MEDS ORDERED: AMLO5TAB4 PO (09:17)
[2022-08-17] MEDS ORDERED: MINO2.5 PO (09:17)
[2022-08-17] MEDS ORDERED: METO50 PO (09:17)
[2022-08-17] MEDS: CLONIDINE HCL 0.2 MG TABLET PO PRN (10:07)
[2022-08-17] MEDS: HYDRALAZINE 20MG/ML VIAL IV PRN (10:23)
[2022-08-17 11:58] VITALS: BP 183/86
[2022-08-17 12:52] VITALS: BP 159/68
== END 2022-08-17 13:00 | disposition home or self-care (01) | DRG 91 ==
LOC: EDH 13:15 → INTOOBSV 19:05 → EDHIP 19:05 → OBSVTOIN 19:05 → 2CH 08-12 19:36 → 2DH 08-14 10:22
PROVIDERS: ADMIT Internal Medicine; ATTEND Internal Medicine
PROC: 5A1D70Z Performance of Urinary Filtration, Intermittent, Less than 6 Hours Per Day (ICD-10-PCS; principal; 2022-08-14)
PROC: 5A1D70Z Performance of Urinary Filtration, Intermittent, Less than 6 Hours Per Day (ICD-10-PCS; 2022-08-16)
DX: G92.8 Other toxic encephalopathy (principal); N18.6 End stage renal disease; I13.2 Hypertensive heart and chronic kidney disease with heart failure and with stage 5 chronic kidney disease, or end stage renal disease; I16.1 Hypertensive emergency; I50.32 Chronic diastolic (congestive) heart failure; Z20.822 Contact with and (suspected) exposure to COVID-19; I25.10 Atherosclerotic heart disease of native coronary artery without angina pectoris; E11.22 Type 2 diabetes mellitus with diabetic chronic kidney disease; E11.51 Type 2 diabetes mellitus with diabetic peripheral angiopathy without gangrene; E11.65 Type 2 diabetes mellitus with hyperglycemia; E66.01 Morbid (severe) obesity due to excess calories; H54.8 Legal blindness, as defined in USA; Z79.82 Long term (current) use of aspirin; Z79.899 Other long term (current) drug therapy; Z86.73 Personal history of transient ischemic attack (TIA), and cerebral infarction without residual deficits; Z87.891 Personal history of nicotine dependence; Z99.2 Dependence on renal dialysis; Z68.34 Body mass index [BMI] 34.0-34.9, adult; T42.6X5A Adverse effect of other antiepileptic and sedative-hypnotic drugs, initial encounter
CPT/HCPCS: 36415; 36600; 70450; 70496; 70498; 70540; 70544; 70551; 71045; 80048; 80053; 80061; 80305; 81001; 82140; 82435; 82803; 82947; 82948; 83036; 83605; 83615; 83735; 83880; 84100; 84132; 84145; 84295; 84443; 84484; 85018; 85025; 85027; 85610; 85730; 86704; 86706; 87340; 87635; 87804; 90935; 92610; 93005; 93306; 93356; 93880; 93925; 94660; 97039; G0378; J0360; J1644; J1650; J1815; J2405; J3411; J3475; J3490; J7050; Q9967

== ENCOUNTER 2022-10-30 02:42 | Observation (INO) | payer OTHER ==
[2022-10-30] VITALS (16 sets, daily range): BP systolic 157–189; BP diastolic 53–76
[~2022-10-30 02:42] MED LIST changes: +AMLO5TAB4 PO; -CARV25TA PO; -HYDR100T27 PO; -INSU100V12 SQ; +INSU300I3 SQ; -LINA145C PO; -MAGN296S73 PO; +METO10TA41 PO; +METO50 PO; +MINO2.5 PO; +PANT40TA54 PO; -PREG150C46 PO; -QUET50TA24 PO; +SEVE800T7 PO
[2022-10-30 02:55] LABS: BASOPHILS % (AUTO) 0.4 % (0.0-5.0); EOSINOPHILS % (AUTO) 0.2 % (0.0-8.0); HEMATOCRIT 35.2 % (42-54); LYMPHOCYTES % (AUTO) 4.6 % (21.0-51.0); MEAN CORPUSCULAR HEMOGLOBIN 30.8 pg (27.0-33.0); MEAN CORPUSCULAR HGB CONC 31.3 g/dL (32.0-36.0); MEAN CORPUSCULAR VOLUME 98.6 fL (79-99); MONOCYTES % (AUTO) 4.7 % (3.0-13.0); NEUTROPHILS % (AUTO) 89.6 % (40.0-77.0); PLATELET COUNT (AUTO) 208 K/uL (130-400); RED BLOOD CELL COUNT(AUTO) 3.57 MIL/uL (4.50-6.20); RED CELL DISTRIBUTION WIDTH 13.9 % (11.0-15.5); WHITE BLOOD COUNT (AUTO) 13.3 K/uL (4.8-10.8)
[2022-10-30] MEDS ORDERED: IPRATROPIUM 0.5 MG/2.5 ML INH IH ONE (03:00)
[2022-10-30] MEDS ORDERED: ALBUTEROL 0.083% 2.5 MG/3 ML INH IH ONE ×2 (03:00→03:30)
[2022-10-30 03:08] LABS: ALBUMIN 4.3 g/dL (3.5-5.0)
[2022-10-30 03:12] LABS: CREATININE 9.9 mg/dL (0.5-1.5); POTASSIUM 7.5 mmol/L (3.5-5.1)
[2022-10-30] MEDS ORDERED: CALCIUM GLUC 1GM/10ML VIAL ONE (03:21)
[2022-10-30] MEDS ORDERED: CALCIUM GLUC 1GM 1 GM in 0.9%NACL 100ML 100 ML IV SCH ×2 (03:30→04:30)
[2022-10-30] MEDS ORDERED: DEXTROSE 50%-WATER 50 ML DISP.SYRIN IV ONE (03:30)
[2022-10-30] MEDS ORDERED: INSULIN HUMULIN R 100 UNIT/ML 3ML IV ONE (03:30)
[2022-10-30] MEDS ORDERED: SODIUM BICARB 50MEQ 50ML VIAL IV ONE (03:30)
[2022-10-30 03:36] LABS: B-TYPE NATRIURETIC PEPTIDE 993 pg/mL (0-100)
[2022-10-30] MEDS ORDERED: AZITHROMYCIN 250 MG TABLET PO ONE (04:00)
[2022-10-30] MEDS ORDERED: CEFTRIAXONE 1G VIAL IVP ONE (04:00)
[2022-10-30] MEDS ORDERED: KAYEXALATE 15GM/60ML PO STA (04:03)
[2022-10-30] MEDS ORDERED: ACETAMINOPHEN 650 MG SUPPOSITORY RC PRN (04:30)
[2022-10-30] MEDS ORDERED: FUROSEMIDE 40MG VIAL IVP ONE (04:30)
[2022-10-30] MEDS ORDERED: IPRATROPIUM 0.5 MG/2.5 ML INH IH PRN (04:30)
[2022-10-30] MEDS ORDERED: ONDANSETRON 4MG INJ IVP PRN (04:30)
[2022-10-30] MEDS ORDERED: ALBUTEROL 0.083% 2.5 MG/3 ML INH IH PRN (04:30)
[2022-10-30] MEDS ORDERED: TEMAZEPAM 15 MG CAPSULE PO PRN (04:30)
[2022-10-30] MEDS ORDERED: CLONIDINE HCL 0.1 MG TABLET PO PRN (04:30)
[2022-10-30] MEDS ORDERED: DOCUSATE SODIUM 100 MG CAP PO PRN (04:30)
[2022-10-30] MEDS ORDERED: LACTULOSE 20 GM/30 ML UDCUP PO PRN (04:30)
[2022-10-30] MEDS ORDERED: ACETAMINOPHEN 325 MG TAB PO PRN (04:30)
[2022-10-30] MEDS ORDERED: HYDRALAZINE 20MG/ML VIAL IV PRN (04:30)
[2022-10-30] MEDS: INSULIN HUMULIN R 100 UNIT/ML 3ML SQ SCH ×4 (08:24→21:00)
[2022-10-30 13:34] LABS: CREATININE 6.2 mg/dL (0.5-1.5)
[2022-10-30] MEDS ORDERED: CEFTRIAXONE 2GM VIAL IVP SCH (17:30)
[2022-10-30] MEDS: HEPARIN 5,000 UNIT VIAL SQ SCH (18:18)
[2022-10-30] MEDS: FAMOTIDINE 20MG VIAL IV SCH (21:54)
[2022-10-31] VITALS (15 sets, daily range): BP systolic 155–196; BP diastolic 57–107
[2022-10-31] MEDS: CEFTRIAXONE 2GM VIAL IVP SCH (06:02)
[2022-10-31] MEDS: HEPARIN 5,000 UNIT VIAL SQ SCH ×2 (06:03→18:29)
[2022-10-31 06:41] LABS: BASOPHILS % (AUTO) 0.6 % (0.0-5.0); EOSINOPHILS % (AUTO) 0.6 % (0.0-8.0); HEMATOCRIT 34.8 % (42-54); LYMPHOCYTES % (AUTO) 7.2 % (21.0-51.0); MEAN CORPUSCULAR HEMOGLOBIN 30.5 pg (27.0-33.0); MEAN CORPUSCULAR HGB CONC 30.5 g/dL (32.0-36.0); MEAN CORPUSCULAR VOLUME 100.3 fL (79-99); MONOCYTES % (AUTO) 12.1 % (3.0-13.0); NEUTROPHILS % (AUTO) 79.1 % (40.0-77.0); PLATELET COUNT (AUTO) 154 K/uL (130-400); RED BLOOD CELL COUNT(AUTO) 3.47 MIL/uL (4.50-6.20); RED CELL DISTRIBUTION WIDTH 13.5 % (11.0-15.5); WHITE BLOOD COUNT (AUTO) 8.9 K/uL (4.8-10.8)
[2022-10-31 06:57] LABS: MAGNESIUM 2.2 mg/dL (1.80-2.40); PHOSPHORUS 5.2 mg/dL (2.5-4.9)
[2022-10-31 07:19] LABS: POTASSIUM 6.3 mmol/L (3.5-5.1)
[2022-10-31 07:20] LABS: CREATININE 8.4 mg/dL (0.5-1.5)
[2022-10-31] MEDS: INSULIN HUMULIN R 100 UNIT/ML 3ML SQ SCH ×4 (07:30→20:42)
[2022-10-31] MEDS: FAMOTIDINE 20MG VIAL IV SCH ×2 (10:03→21:00)
[2022-10-31] MEDS ORDERED: KAYEXALATE 15GM/60ML PO SCH (11:00)
[2022-11-01] VITALS (17 sets, daily range): BP systolic 130–199; BP diastolic 62–98
[2022-11-01] MEDS: CEFTRIAXONE 2GM VIAL IVP SCH (03:43)
[2022-11-01] MEDS: HEPARIN 5,000 UNIT VIAL SQ SCH (03:43)
[2022-11-01 04:46] LABS: HEMATOCRIT 35.2 % (42-54); MEAN CORPUSCULAR HGB CONC 31.3 g/dL (32.0-36.0); MEAN CORPUSCULAR VOLUME 95.9 fL (79-99); PLATELET COUNT (AUTO) 155 K/uL (130-400); RED BLOOD CELL COUNT(AUTO) 3.67 MIL/uL (4.50-6.20); RED CELL DISTRIBUTION WIDTH 13.1 % (11.0-15.5); WHITE BLOOD COUNT (AUTO) 6.1 K/uL (4.8-10.8)
[2022-11-01 05:02] LABS: ALBUMIN 3.6 g/dL (3.5-5.0); CREATININE 7.4 mg/dL (0.5-1.5); TOTAL PROTEIN, SERUM 7.5 g/dL (6.0-8.3)
[2022-11-01 05:09] LABS: LYMPHOCYTES % (MANUAL) 20 % (22-44); MAN.DIFF COMMENT-IMPRESSION MANUAL DIFFERENTIAL; MONOCYTES % (MANUAL) 18 % (2-9); PLATELET MORPHOLOGY COMMENT ADEQUATE; SEGMENTED NEUTROPHILS % 62 % (40-70)
[2022-11-01] MEDS: INSULIN HUMULIN R 100 UNIT/ML 3ML SQ SCH ×2 (05:26→11:30)
[2022-11-01] MEDS: FAMOTIDINE 20MG VIAL IV SCH (09:02)
[2022-11-01] MEDS ORDERED: AMLO-258 PO (09:36)
[2022-11-01] MEDS ORDERED: ESCI-8 PO (09:36)
[2022-11-01] MEDS ORDERED: PREG150C46 PO (09:36)
[2022-11-01] MEDS ORDERED: INSU100V39 SQ (09:36)
[2022-11-01] MEDS ORDERED: CARV25TA PO (09:36)
[2022-11-01] MEDS ORDERED: SEVE800 PO (09:36)
[2022-11-01] MEDS ORDERED: AMLO-257 PO (09:36)
[2022-11-01] MEDS ORDERED: SEVELAMER HCL 800 MG TABLET PO SCH (12:00)
[2022-11-01] MEDS ORDERED: PRAS10TA9 PO (14:43)
[2022-11-01] MEDS ORDERED: SIMV-43 PO (14:43)
[2022-11-01] MEDS ORDERED: HYDR100T27 PO (14:43)
[2022-11-01] MEDS ORDERED: PANT40GR PO (14:43)
[2022-11-01] MEDS ORDERED: METO10TA3 PO (14:43)
[2022-11-01] MEDS ORDERED: LOSA100T58 PO (14:43)
[2022-11-01] MEDS ORDERED: CARVEDILOL 25 MG TABLET PO SCH ×2 (21:00)
[2022-11-01] MEDS ORDERED: PREGABALIN PO SCH (21:00)
[2022-11-01] MEDS ORDERED: [UNRECOGNIZED DRUG - OTHER] PO SCH (21:00)
[2022-11-02] MEDS ORDERED: INSULIN LISPRO 100 UNIT/ML 3ML SQ SCH (07:30)
[2022-11-02] MEDS ORDERED: NON-FORMULARY MEDICATION 1 EACH (Escitalopram Oxalate 1 TAB) PO SCH (09:00)
[2022-11-02] MEDS ORDERED: AMLODIPINE 5 MG TAB PO SCH (09:00)
[2022-11-02] MEDS ORDERED: NON-FORMULARY MEDICATION 1 EACH (Amlodipine Besylate 1 TAB) PO SCH (09:00)
[2022-11-02] MEDS ORDERED: CITALOPRAM 20 MG TABLET PO SCH (09:00)
== END 2022-11-01 15:20 | disposition home or self-care (01) ==
LOC: EDH 02:42 → EDHIP 04:09 → 4CH 10-31 09:00
PROVIDERS: ADMIT Internal Medicine; ATTEND Internal Medicine
DX: I12.0 Hypertensive chronic kidney disease with stage 5 chronic kidney disease or end stage renal disease (principal); Z20.822 Contact with and (suspected) exposure to COVID-19; E11.22 Type 2 diabetes mellitus with diabetic chronic kidney disease; N18.6 End stage renal disease; D63.1 Anemia in chronic kidney disease; E87.70 Fluid overload, unspecified; E87.5 Hyperkalemia; D72.829 Elevated white blood cell count, unspecified; J18.1 Lobar pneumonia, unspecified organism; E78.5 Hyperlipidemia, unspecified; J81.1 Chronic pulmonary edema; I27.20 Pulmonary hypertension, unspecified; H54.8 Legal blindness, as defined in USA; E78.00 Pure hypercholesterolemia, unspecified; Z91.199 Patient's noncompliance with other medical treatment and regimen due to unspecified reason; Z99.2 Dependence on renal dialysis; Z79.899 Other long term (current) drug therapy
CPT/HCPCS: 94640 ×2; 96372 ×3; 96365; 96366; 96375 ×3; 84484; 84132; 80053 ×2; 83880; 85025 ×3; 87804 ×2; 82948 ×10; 36415 ×3; 87635; 71045 ×2; 99291; 93005; 94664; 96376 ×2; 83735; 84100; 80048; J1815 ×4; G0378 ×50; C9803; J3490 ×5; J7070; J0610; J0696 ×3; J1644 ×4; J1940; J0360; 90935

== ENCOUNTER → 2022-12-06 | Outpatient (CLI) | payer OTHER ==
[~2022-12-06] MED LIST changes: +AMLO-258 PO; -AMLO5TAB4 PO; +CARV25TA PO; +ESCI-8 PO; +HYDR100T27 PO; -INSU100V SQ; +INSU100V39 SQ; -INSU300I3 SQ; -LACT10SO9 PO; +METO10TA3 PO; -METO10TA41 PO; -METO50 PO; -MINO2.5 PO; -ONDA4TAB10 PO; +PANT40GR PO; -PANT40TA54 PO; +PREG150C46 PO; -ROPI1TAB13 PO; +SEVE800 PO; -SEVE800T7 PO
== END | disposition home or self-care (01) ==
LOC: RAH 09:07
PROVIDERS: ATTEND Internal Medicine Cardiovascular Disease
DX: I11.0 Hypertensive heart disease with heart failure (principal); I50.31 Acute diastolic (congestive) heart failure; I25.110 Atherosclerotic heart disease of native coronary artery with unstable angina pectoris; I87.2 Venous insufficiency (chronic) (peripheral); E78.5 Hyperlipidemia, unspecified; I73.9 Peripheral vascular disease, unspecified
CPT/HCPCS: 93970

== ENCOUNTER 2023-01-24 16:40 | Emergency (ER) | payer OTHER ==
[~2023-01-24] VITALS: Ht 165.1 cm; Wt 90.7 kg
[2023-01-24 18:27] VITALS: BP 151/53
[2023-01-24] MEDS ORDERED: LORAZEPAM 2 MG/ML 1 ML VIAL IVP ONE (18:30)
[2023-01-24 18:31] LABS: BASOPHILS % (AUTO) 0.5 % (0.0-5.0); EOSINOPHILS % (AUTO) 0.5 % (0.0-8.0); HEMATOCRIT 35.2 % (42-54); LYMPHOCYTES % (AUTO) 14.6 % (21.0-51.0); MEAN CORPUSCULAR HEMOGLOBIN 30.6 pg (27.0-33.0); MEAN CORPUSCULAR HGB CONC 32.4 g/dL (32.0-36.0); MEAN CORPUSCULAR VOLUME 94.6 fL (79-99); MONOCYTES % (AUTO) 14.1 % (3.0-13.0); NEUTROPHILS % (AUTO) 69.9 % (40.0-77.0); PLATELET COUNT (AUTO) 181 K/uL (130-400); RED BLOOD CELL COUNT(AUTO) 3.72 MIL/uL (4.50-6.20); RED CELL DISTRIBUTION WIDTH 13.2 % (11.0-15.5); WHITE BLOOD COUNT (AUTO) 7.3 K/uL (4.8-10.8)
[2023-01-24 18:55] LABS: CREATININE 6.4 mg/dL (0.5-1.5); POTASSIUM 4.6 mmol/L (3.5-5.1); TOTAL PROTEIN, SERUM 8.1 g/dL (6.0-8.3)
[2023-01-24] MEDS ORDERED: HYD25 PO (19:02)
== END 2023-01-24 19:43 | disposition home or self-care (01) ==
LOC: EDH 16:40
DX: F41.9 Anxiety disorder, unspecified (principal); I10 Essential (primary) hypertension; E78.00 Pure hypercholesterolemia, unspecified; Z79.899 Other long term (current) drug therapy
CPT/HCPCS: 99285; 96374; 71045; 84484; 80053; 85025; 36415; 93005; J2060

== ENCOUNTER 2023-02-13 09:25 | Observation (INO) | payer OTHER ==
[~2023-02-13] VITALS: Ht 162.6 cm; Wt 91.4 kg
[~2023-02-13 09:25] MED LIST changes: +HYD25 PO; -LOSA100T58 PO; +LOSA100T59 PO
[2023-02-13 09:57] LABS: BASOPHILS % (AUTO) 0.5 % (0.0-5.0); EOSINOPHILS % (AUTO) 0.4 % (0.0-8.0); HEMATOCRIT 30.7 % (42-54); LYMPHOCYTES % (AUTO) 16.5 % (21.0-51.0); MEAN CORPUSCULAR HGB CONC 31.9 g/dL (32.0-36.0); MEAN CORPUSCULAR VOLUME 97.2 fL (79-99); MONOCYTES % (AUTO) 17.7 % (3.0-13.0); NEUTROPHILS % (AUTO) 64.5 % (40.0-77.0); PLATELET COUNT (AUTO) 204 K/uL (130-400); RED BLOOD CELL COUNT(AUTO) 3.16 MIL/uL (4.50-6.20); RED CELL DISTRIBUTION WIDTH 12.9 % (11.0-15.5)
[2023-02-13] MEDS ORDERED: ONDANSETRON 4MG INJ IVP ONE (10:00)
[2023-02-13 10:13] LABS: ALBUMIN 4.4 g/dL (3.5-5.0); POTASSIUM 4.8 mmol/L (3.5-5.1)
[2023-02-13 10:14] LABS: CREATININE 8.4 mg/dL (0.5-1.5)
[2023-02-13 10:27] LABS: B-TYPE NATRIURETIC PEPTIDE 880 pg/mL (0-100)
[2023-02-13] MEDS ORDERED: LORAZEPAM 2 MG/ML 1 ML VIAL IVP ONE (10:30)
[2023-02-13] MEDS ORDERED: ROPI1TAB13 PO (10:47)
[2023-02-13] MEDS ORDERED: HYDRALAZINE 20MG/ML VIAL IV ONE (11:00)
[2023-02-13] MEDS ORDERED: HYDRALAZINE 25MG TABLET PO SCH (11:00)
[2023-02-13 11:57] LABS: APPEARANCE,URINE CLEAR (CLEAR); BILIRUBIN,URINE NEGATIVE (NEGATIVE); COLOR,URINE LIGHT-YELLOW (YELLOW); GLUCOSE, URINE (UA) 500 mg/dL (NEGATIVE); KETONES,URINE NEGATIVE (NEGATIVE); LEUKOCYTE ESTERASE ,URINE NEGATIVE Leu/uL (NEGATIVE); NITRATE,URINE NEGATIVE (NEGATIVE); PH,URINE 8.5 (5.0-8.0); PROTEIN,URINE 600 mg/dL (NEGATIVE); UROBILINOGEN,URINE 0.2 mg/dL (0.2-1.0)
[2023-02-13 12:11] LABS: BACTERIA,URINE RARE /HPF (None Seen); SQUAMOUS EPITHELIAL CELL,UR RARE /HPF (0-2)
[2023-02-13] MEDS: AZITHROMYCIN 500MG+NS 250ML IVPB SCH (12:20)
[2023-02-13] MEDS ORDERED: CEFTRIAXONE 1G VIAL IVPB ONE (12:30)
[2023-02-13] MEDS ORDERED: DEXAMETHASONE SOD PHOSPHATE 4 MG/ML 1ML VIAL IVP ONE (13:00)
[2023-02-13] MEDS ORDERED: IPRATROPIUM/ALBUTEROL SULFATE 3 ML SOLUTION IH ONE (13:00)
[2023-02-13 13:43] LABS: THYROID STIMULATING HORMONE 1.77 uIU/mL (0.36-3.74)
[2023-02-13] MEDS ORDERED: KAYEXALATE 15GM/60ML PO ONE (15:30)
[2023-02-13] MEDS ORDERED: IPRATROPIUM/ALBUTEROL SULFATE 3 ML SOLUTION IH PRN (15:30)
[2023-02-13] MEDS ORDERED: ONDANSETRON 4MG INJ IV PRN (15:30)
[2023-02-13] MEDS ORDERED: BENZONATATE 100 MG CAPSULE PO PRN (15:30)
[2023-02-13] MEDS ORDERED: LACTULOSE 20 GM/30 ML UDCUP PO PRN (15:30)
[2023-02-13] MEDS ORDERED: GUAIFENESIN-DM 200/20 MG 10 ML PO PRN (15:30)
[2023-02-13] MEDS ORDERED: ALPRAZOLAM 0.25 MG TABLET PO PRN (15:30)
[2023-02-13] MEDS ORDERED: HYDRALAZINE 25MG TABLET PO PRN (15:30)
[2023-02-13] MEDS ORDERED: CLONIDINE HCL 0.1 MG TABLET PO PRN (15:30)
[2023-02-13] MEDS: HEPARIN 5,000 UNIT VIAL SQ SCH (15:30)
[2023-02-13] MEDS: ZOSYN 3.375GM +NS 50ML IVPB SCH (15:30)
[2023-02-13] MEDS ORDERED: METOPROLOL TARTRATE 1 MG/ML 5ML VIAL IV PRN (15:30)
[2023-02-13] MEDS ORDERED: HYDROCODONE/ACETAMINOPHEN 5/325 MG TAB PO PRN (15:30)
[2023-02-13] MEDS ORDERED: ACETAMINOPHEN 325 MG TAB PO PRN ×2 (15:30)
[2023-02-13] MEDS ORDERED: HYDRALAZINE 20MG/ML VIAL IV PRN (15:30)
[2023-02-13] MEDS ORDERED: BENZOCAINE/MENTH/CETYLPYRD CL 1 EACH LOZENGE MM PRN (15:30)
[2023-02-13 16:00] VITALS: BP 193/63
[2023-02-13] MEDS ORDERED: HYDROMORPHONE 0.5 MG SYG (0.5MG/0.5ML) IVP PRN (16:00)
[2023-02-13] MEDS ORDERED: INSU300I SQ (16:09)
[2023-02-13] MEDS ORDERED: LOSA100T59 PO (16:09)
[2023-02-13] MEDS ORDERED: DEXTROSE 50%-WATER 50 ML DISP.SYRIN IV PRN (16:30)
[2023-02-13] MEDS ORDERED: GLUCAGON 1MG KIT 1 MG ML IM PRN (16:30)
[2023-02-13] MEDS: SEVELAMER HCL 800 MG TABLET PO SCH (17:00)
[2023-02-13] MEDS ORDERED: METOCLOPRAMIDE 5 MG TABLET PO SCH (17:00)
[2023-02-13] MEDS: INSULIN HUMULIN R 100 UNIT/ML 3ML SQ SCH ×2 (18:15→20:19)
[2023-02-13 19:57] VITALS: BP 206/71
[2023-02-13] MEDS: SIMVASTATIN 20 MG TABLET PO SCH (20:12)
[2023-02-13] MEDS: HYDRALAZINE 25MG TABLET PO SCH (20:12)
[2023-02-13] MEDS: ROPINIROLE HCL 1 MG TABLET PO SCH (20:12)
[2023-02-13] MEDS: PREGABALIN 75 MG CAPSULE PO SCH (20:12)
[2023-02-13] MEDS: METOCLOPRAMIDE 10 MG TABLET PO SCH (20:12)
[2023-02-13] MEDS: CARVEDILOL 25 MG TABLET PO SCH (20:13)
[2023-02-13 21:40] VITALS: BP 179/67
[2023-02-13 23:50] VITALS: BP 119/70
[2023-02-14] VITALS (19 sets, daily range): BP systolic 100–172; BP diastolic 40–63
[2023-02-14] MEDS: ZOSYN 3.375GM +NS 50ML IVPB SCH ×2 (03:35→17:08)
[2023-02-14] MEDS: HEPARIN 5,000 UNIT VIAL SQ SCH ×2 (03:35→17:18)
[2023-02-14 06:36] LABS: HEMATOCRIT 28.2 % (42-54); MEAN CORPUSCULAR HEMOGLOBIN 31.2 pg (27.0-33.0); MEAN CORPUSCULAR HGB CONC 31.2 g/dL (32.0-36.0); RED BLOOD CELL COUNT(AUTO) 2.82 MIL/uL (4.50-6.20); WHITE BLOOD COUNT (AUTO) 7.4 K/uL (4.8-10.8)
[2023-02-14] MEDS: INSULIN HUMULIN R 100 UNIT/ML 3ML SQ SCH ×5 (06:46→21:48)
[2023-02-14 06:47] LABS: HEMOGLOBIN A1C 6.1 % (4.0-6.0)
[2023-02-14 06:51] LABS: POTASSIUM 5.6 mmol/L (3.5-5.1)
[2023-02-14] MEDS: PREGABALIN 75 MG CAPSULE PO SCH ×2 (08:14→20:29)
[2023-02-14] MEDS: LOSARTAN 100 MG TABLET PO SCH (08:14)
[2023-02-14] MEDS: HYDRALAZINE 25MG TABLET PO SCH ×3 (08:15→20:28)
[2023-02-14] MEDS: CARVEDILOL 25 MG TABLET PO SCH ×2 (08:15→20:28)
[2023-02-14] MEDS: METOCLOPRAMIDE 10 MG TABLET PO SCH ×2 (08:15→21:43)
[2023-02-14] MEDS: PANTOPRAZOLE 40 MG TAB DR PO SCH (08:15)
[2023-02-14] MEDS: SEVELAMER HCL 800 MG TABLET PO SCH ×3 (08:15→17:08)
[2023-02-14] MEDS: AMLODIPINE 5 MG TAB PO SCH (08:16)
[2023-02-14] MEDS: PRASUGREL HCL 10 MG TABLET PO SCH (08:19)
[2023-02-14] MEDS ORDERED: EPOETIN ALFA-EPBX (NON-ESRD) 10,000 UNIT/ML VIAL SQ SCH (12:30)
[2023-02-14] MEDS: AZITHROMYCIN 500MG+NS 250ML IVPB SCH (14:35)
[2023-02-14] MEDS: SIMVASTATIN 20 MG TABLET PO SCH (21:43)
[2023-02-14] MEDS: ROPINIROLE HCL 1 MG TABLET PO SCH (21:43)
[2023-02-15] VITALS: BP 124/57
[2023-02-15 04:00] VITALS: BP 134/67
[2023-02-15] MEDS: ZOSYN 3.375GM +NS 50ML IVPB SCH (05:10)
[2023-02-15] MEDS: HEPARIN 5,000 UNIT VIAL SQ SCH (05:12)
[2023-02-15 05:56] LABS: BASOPHILS % (AUTO) 0.5 % (0.0-5.0); EOSINOPHILS % (AUTO) 1.1 % (0.0-8.0); HEMATOCRIT 30.3 % (42-54); LYMPHOCYTES % (AUTO) 21.8 % (21.0-51.0); MEAN CORPUSCULAR HEMOGLOBIN 31.5 pg (27.0-33.0); MEAN CORPUSCULAR HGB CONC 31.4 g/dL (32.0-36.0); MEAN CORPUSCULAR VOLUME 100.3 fL (79-99); MONOCYTES % (AUTO) 12.5 % (3.0-13.0); NEUTROPHILS % (AUTO) 63.8 % (40.0-77.0); PLATELET COUNT (AUTO) 190 K/uL (130-400); RED BLOOD CELL COUNT(AUTO) 3.02 MIL/uL (4.50-6.20); RED CELL DISTRIBUTION WIDTH 13.1 % (11.0-15.5); WHITE BLOOD COUNT (AUTO) 6.7 K/uL (4.8-10.8)
[2023-02-15 06:42] LABS: CREATININE 7.8 mg/dL (0.5-1.5); PHOSPHORUS 5.2 mg/dL (2.5-4.9); POTASSIUM 4.9 mmol/L (3.5-5.1)
[2023-02-15] MEDS: INSULIN HUMULIN R 100 UNIT/ML 3ML SQ SCH ×2 (07:20→11:30)
[2023-02-15 08:00] VITALS: BP 183/75
[2023-02-15] MEDS: HYDRALAZINE 25MG TABLET PO SCH ×2 (09:13→14:22)
[2023-02-15] MEDS: AMLODIPINE 5 MG TAB PO SCH (09:13)
[2023-02-15] MEDS: PREGABALIN 75 MG CAPSULE PO SCH (09:13)
[2023-02-15] MEDS: LOSARTAN 100 MG TABLET PO SCH (09:13)
[2023-02-15] MEDS: PANTOPRAZOLE 40 MG TAB DR PO SCH (09:14)
[2023-02-15] MEDS: METOCLOPRAMIDE 10 MG TABLET PO SCH (09:14)
[2023-02-15] MEDS: PRASUGREL HCL 10 MG TABLET PO SCH (09:14)
[2023-02-15] MEDS: CARVEDILOL 25 MG TABLET PO SCH (09:14)
[2023-02-15] MEDS: SEVELAMER HCL 800 MG TABLET PO SCH ×2 (09:24→14:23)
[2023-02-15 12:00] VITALS: BP 120/76
[2023-02-15] MEDS: AZITHROMYCIN 500MG+NS 250ML IVPB SCH (12:30)
[2023-02-15] MEDS ORDERED: AMOX-426 PO (14:25)
== END 2023-02-15 03:05 | disposition home or self-care (01) ==
LOC: EDH 09:25 → EDHIP 12:43 → 3BH 15:55
PROVIDERS: ADMIT Internal Medicine; ATTEND Internal Medicine
DX: R11.2 Nausea with vomiting, unspecified (principal); Z20.822 Contact with and (suspected) exposure to COVID-19; I13.2 Hypertensive heart and chronic kidney disease with heart failure and with stage 5 chronic kidney disease, or end stage renal disease; I50.30 Unspecified diastolic (congestive) heart failure; E11.43 Type 2 diabetes mellitus with diabetic autonomic (poly)neuropathy; E11.51 Type 2 diabetes mellitus with diabetic peripheral angiopathy without gangrene; E11.22 Type 2 diabetes mellitus with diabetic chronic kidney disease; D63.1 Anemia in chronic kidney disease; E66.9 Obesity, unspecified; E78.00 Pure hypercholesterolemia, unspecified; E87.5 Hyperkalemia; I25.10 Atherosclerotic heart disease of native coronary artery without angina pectoris; J69.0 Pneumonitis due to inhalation of food and vomit; K31.84 Gastroparesis; N18.6 End stage renal disease; H54.8 Legal blindness, as defined in USA; Z68.34 Body mass index [BMI] 34.0-34.9, adult; Z99.2 Dependence on renal dialysis; Z79.4 Long term (current) use of insulin; Z79.899 Other long term (current) drug therapy; Z98.890 Other specified postprocedural states
CPT/HCPCS: 96376; 96365; 96366 ×4; 96375; 96368; 99285; 82150; 84443; 84484; 80053; 83880; 83690; 85025 ×2; 87040 ×2; 87088; 87804 ×2; 82948 ×9; 83605 ×2; 81001; 36415 ×3; 87635; 71045; 74176; 93970; 93925; 93005; 94640; 94664; 84145; 96372 ×2; 90935; 96367; 83036; 80048 ×2; 85027; 97161; 97039 ×2; 97116 ×2; 84100; J1815 ×2; J1100; G0378 ×34; J0360 ×2; J0696; J2405 ×2; J2060; J0456 ×2; J1170; J2543 ×3; J1644 ×3; Q5106

== ENCOUNTER 2023-02-21 17:16 | Emergency (ER) | payer OTHER ==
[~2023-02-21] VITALS: Ht 162.6 cm; Wt 91.2 kg
[~2023-02-21 17:16] MED LIST changes: +AMOX-426 PO; -HYD25 PO; +INSU300I SQ; +ROPI1TAB13 PO
[2023-02-21 18:08] LABS: BASOPHILS % (AUTO) 0.4 % (0.0-5.0); EOSINOPHILS % (AUTO) 0.1 % (0.0-8.0); LYMPHOCYTES % (AUTO) 11.7 % (21.0-51.0); MEAN CORPUSCULAR HEMOGLOBIN 31.5 pg (27.0-33.0); MEAN CORPUSCULAR VOLUME 98.3 fL (79-99); MONOCYTES % (AUTO) 15.1 % (3.0-13.0); NEUTROPHILS % (AUTO) 72.1 % (40.0-77.0); PLATELET COUNT (AUTO) 204 K/uL (130-400); RED BLOOD CELL COUNT(AUTO) 3.56 MIL/uL (4.50-6.20); RED CELL DISTRIBUTION WIDTH 13.6 % (11.0-15.5); WHITE BLOOD COUNT (AUTO) 7.2 K/uL (4.8-10.8)
[2023-02-21 18:10] LABS: CREATININE 6.4 mg/dL (0.5-1.5); POTASSIUM 4.4 mmol/L (3.5-5.1)
[2023-02-21 18:15] LABS: ALBUMIN 4.6 g/dL (3.5-5.0); TOTAL PROTEIN, SERUM 8.6 g/dL (6.0-8.3)
[2023-02-21 18:45] LABS: B-TYPE NATRIURETIC PEPTIDE 259 pg/mL (0-100)
[2023-02-21] MEDS ORDERED: IPRATROPIUM/ALBUTEROL SULFATE 3 ML SOLUTION IH ONE (20:00)
[2023-02-21] MEDS ORDERED: IOHEXOL-350 75 ML VIAL IV ONE (21:36)
[2023-02-21] MEDS ORDERED: ALBU90AE2 IH (22:48)
[2023-02-21 23:05] VITALS: BP 122/56
== END 2023-02-21 23:10 | disposition home or self-care (01) ==
LOC: EDH 17:16
DX: E11.22 Type 2 diabetes mellitus with diabetic chronic kidney disease (principal); I12.0 Hypertensive chronic kidney disease with stage 5 chronic kidney disease or end stage renal disease; N18.6 End stage renal disease; F41.9 Anxiety disorder, unspecified; J44.9 Chronic obstructive pulmonary disease, unspecified; Z99.2 Dependence on renal dialysis; E78.00 Pure hypercholesterolemia, unspecified; Z79.4 Long term (current) use of insulin; Z79.899 Other long term (current) drug therapy
CPT/HCPCS: 99285; 71270; 71045; 84484; 80053; 83880; 85025; 36415; 93005; 36600; 94640; Q9967

== ENCOUNTER 2023-11-27 11:42 | Emergency (ER) | payer OTHER ==
[~2023-11-27] VITALS: Ht 162.6 cm; Wt 94.3 kg
[~2023-11-27 11:42] MED LIST changes: +ALBU90AE2 IH; -INSU100V39 SQ; +INSU100V45 SQ; -PREG150C46 PO; +PREG150C47 PO; -ROPI1TAB13 PO; +ROPI1TAB46 PO
[2023-11-27] MEDS: ONDANSETRON 4MG INJ IVP ONE (12:21)
[2023-11-27 12:47] LABS: BASOPHILS # (AUTO) 0.02 K/uL (0.00-0.20); BASOPHILS % (AUTO) 0.3 % (0.0-5.0); EOSINOPHILS # (AUTO) 0.07 K/uL (0.00-0.70); HEMATOCRIT 35.4 % (42-54); IMMATURE GRANULOCYTE ABSOLUTE 0.02 K/uL (0-1); LYMPHOCYTES # (AUTO) 1.2 K/uL (1.0-4.8); MEAN CORPUSCULAR HEMOGLOBIN 31.6 pg (27.0-33.0); MEAN CORPUSCULAR HGB CONC 33.3 g/dL (32.0-36.0); MEAN CORPUSCULAR VOLUME 94.7 fL (79-99); MONOCYTES # (AUTO) 0.7 K/uL (0.1-1.0); MONOCYTES % (AUTO) 9.3 % (3.0-13.0); NEUTROPHILS # (AUTO) 5.1 K/uL (1.8-7.7); NEUTROPHILS % (AUTO) 72.1 % (40.0-77.0); PLATELET COUNT (AUTO) 181 K/uL (130-400); RED BLOOD CELL COUNT(AUTO) 3.74 MIL/uL (4.50-6.20); RED CELL DISTRIBUTION WIDTH 14.4 % (11.0-15.5)
[2023-11-27] MEDS: HYDROMORPHONE 0.5 MG SYG (0.5MG/0.5ML) IVP ONE (12:54)
[2023-11-27] MEDS: HYDRALAZINE 20MG/ML VIAL IV ONE (12:55)
[2023-11-27 14:35] LABS: ALBUMIN 3.8 g/dL (3.5-5.0); BILIRUBIN,TOTAL 0.5 mg/dL (0.2-1.0); TOTAL PROTEIN, SERUM 7.6 g/dL (6.0-8.3)
[2023-11-27] MEDS: PROCHLORPERAZINE 10MG/2ML INJ IV ONE (14:41)
[2023-11-27] MEDS: 0.9% NACL 500ML IV.SOLN 500 ML IV ONE (14:41)
[2023-11-27 14:45] LABS: CREATININE 8.3 mg/dL (0.5-1.5)
[2023-11-27 15:52] VITALS: O2SAT 98
[2023-11-27 16:58] LABS: SARS-CoV-2, RNA, NAAT NEGATIVE SARS CoV-2 (NEGATIVE)
[2023-11-27 17:10] LABS: INFLUENZA TYPE A Negative For Type A (NEGATIVE); INFLUENZA TYPE B Negative For Type B (NEGATIVE)
[2023-11-27] MEDS ORDERED: ONDA4TAB10 PO (17:14)
[2023-11-27 17:21] VITALS: BP 184/62; PULSE 80; RESP 18
== END 2023-11-27 17:36 | disposition home or self-care (01) ==
LOC: EDH 11:42
DX: K52.9 Noninfective gastroenteritis and colitis, unspecified (principal); I12.0 Hypertensive chronic kidney disease with stage 5 chronic kidney disease or end stage renal disease; E11.22 Type 2 diabetes mellitus with diabetic chronic kidney disease; N18.6 End stage renal disease; E78.00 Pure hypercholesterolemia, unspecified; F32.A Depression, unspecified; Z79.02 Long term (current) use of antithrombotics/antiplatelets; Z99.2 Dependence on renal dialysis; Z79.899 Other long term (current) drug therapy; Z20.822 Contact with and (suspected) exposure to COVID-19
CPT/HCPCS: 99285; 74176; 96374; 96375; 87635; 96361; 84484; 80053; 83690; 85025; 87804 ×2; 83605; 36415; 93005; J7040; J0360; J0780; J2405; J1170

== ENCOUNTER 2023-12-14 02:32 | Emergency (ER) | payer OTHER ==
[~2023-12-14] VITALS: Ht 162.6 cm; Wt 92.1 kg
[~2023-12-14 02:32] MED LIST changes: -AMOX-426 PO; +ONDA4TAB10 PO
[2023-12-14 03:17] LABS: BASOPHILS # (AUTO) 0.03 K/uL (0.00-0.20); BASOPHILS % (AUTO) 0.5 % (0.0-5.0); EOSINOPHILS # (AUTO) 0.02 K/uL (0.00-0.70); EOSINOPHILS % (AUTO) 0.3 % (0.0-8.0); HEMATOCRIT 33.8 % (42-54); IMMATURE GRANULOCYTE ABSOLUTE 0.03 K/uL (0-1); LYMPHOCYTES % (AUTO) 15.8 % (21.0-51.0); MEAN CORPUSCULAR HEMOGLOBIN 31.6 pg (27.0-33.0); MEAN CORPUSCULAR HGB CONC 33.4 g/dL (32.0-36.0); MEAN CORPUSCULAR VOLUME 94.4 fL (79-99); MONOCYTES # (AUTO) 0.9 K/uL (0.1-1.0); MONOCYTES % (AUTO) 13.4 % (3.0-13.0); NEUTROPHILS # (AUTO) 4.5 K/uL (1.8-7.7); NEUTROPHILS % (AUTO) 69.5 % (40.0-77.0); PLATELET COUNT (AUTO) 150 K/uL (130-400); RED BLOOD CELL COUNT(AUTO) 3.58 MIL/uL (4.50-6.20); RED CELL DISTRIBUTION WIDTH 14.7 % (11.0-15.5); WHITE BLOOD COUNT (AUTO) 6.5 K/uL (4.8-10.8)
[2023-12-14 03:29] LABS: ALBUMIN 3.7 g/dL (3.5-5.0); BILIRUBIN,TOTAL 0.4 mg/dL (0.2-1.0); TOTAL PROTEIN, SERUM 7.1 g/dL (6.0-8.3)
[2023-12-14 03:31] LABS: B-TYPE NATRIURETIC PEPTIDE 987 pg/mL (0-100)
[2023-12-14 03:32] LABS: CREATININE 11.1 mg/dL (0.5-1.5); POTASSIUM 6.3 mmol/L (3.5-5.1)
[2023-12-14] MEDS: ASPIRIN 325MG TAB PO ONE (03:47)
[2023-12-14] MEDS: SODIUM BICARB 50MEQ 50ML VIAL IV ONE (03:49)
[2023-12-14] MEDS: INSULIN HUMULIN R 100 UNIT/ML 3ML IV ONE (03:52)
[2023-12-14] MEDS: CALCIUM GLUC 1GM/10ML VIAL IV ONE (03:56)
[2023-12-14] MEDS: NITROGLYCERIN 1GM OINT 1 INCH/1GM TD ONE (03:58)
[2023-12-14] MEDS: DEXTROSE 50%-WATER 50 ML DISP.SYRIN IV ONE (04:00)
[2023-12-14 04:38] VITALS: BP 140/58
[2023-12-14 04:50] VITALS: PULSE 79; RESP 26
[2023-12-14] MEDS: ALBUTEROL 0.083% 2.5 MG/3 ML INH IH ONE (04:50)
[2023-12-14] MEDS: HYDROCODONE/ACETAMINOPHEN 5/325 MG TAB PO ONE (05:12)
[2023-12-14 05:56] VITALS: PULSE 75; RESP 16; O2SAT 98
== END 2023-12-14 06:36 | disposition left against medical advice (07) ==
LOC: EDH 02:32
DX: I12.0 Hypertensive chronic kidney disease with stage 5 chronic kidney disease or end stage renal disease (principal); N18.6 End stage renal disease; E11.22 Type 2 diabetes mellitus with diabetic chronic kidney disease; Z99.2 Dependence on renal dialysis; E78.00 Pure hypercholesterolemia, unspecified; Z79.899 Other long term (current) drug therapy; Z98.890 Other specified postprocedural states
CPT/HCPCS: 99285; 80053; 83880; 85025; 36415; 71045; 96374; 96375; 93005; 94640; J3490; J7070; J0610; J1815

== ENCOUNTER 2024-08-31 15:43 | Emergency (ER) | payer OTHER ==
[~2024-08-31] VITALS: Ht 162.6 cm; Wt 85.7 kg
[~2024-08-31 15:43] MED LIST changes: -ALBU90AE2 IH; -ESCI-8 PO; +HYDR100T15 PO; -HYDR100T27 PO; -INSU100V45 SQ; -INSU300I SQ; -METO10TA3 PO; -ONDA4TAB10 PO; -PANT40GR PO; -PREG150C47 PO; -ROPI1TAB46 PO; +ROPI2TAB29 PO; -SEVE800 PO; -SIMV-43 PO
[2024-08-31] MEDS ORDERED: 0.9%NACL 1000ML 1,000 ML IV ONE (16:00)
[2024-08-31] MEDS: ondanSETRON 4MG INJ IVP ONE (16:17)
[2024-08-31] MEDS: morPHINE 4 MG SYG IVP ONE (16:18)
--- NOTE | 2024-08-31 16:20 | ERN ---
General Chief Complaint: Abdominal Pain Stated Complaint: ABD PAIN Time Seen by MD: 15:46 History of Present Illness Initial Comments 64-year-old male who presents for two days of generalized abdominal pain. He reports nausea and vomiting. Pain is mostly in the midepigastric area, nonradiating. No diarrhea. He does not make urine disease dialysis dependent. He denies any fevers chest pain chills cough or congestion. Denies any surgical history. Medical history: Hypertension, diabetes, ESRD on dialysis. PCP: Sidra Brambila Magnetic Prospector: Flor Allergies: Coded Allergies: No Known Allergies (Verified Allergy, Unknown, 11/25/18) Home Meds Reported Medications Ropinirole HCl (Ropinirole HCl) 2 Mg Tab.er.24h, 2 MG PO HS, TAB 04/23/24 Hydralazine HCl (Hydralazine HCl) 100 Mg Tablet, 100 MG PO TID, TAB 02/29/24 Prasugrel HCl (Prasugrel HCl) 10 Mg Tablet, 10 MG PO DAILY, TAB 02/29/24 Amlodipine Besylate (Amlodipine Besylate) 10 Mg Tablet, 10 MG PO DAILY for 30 Days, #30 TAB 0 Refills 02/29/24 Carvedilol (Carvedilol) 25 Mg Tablet, 25 MG PO BIDMEALS, TAB 02/29/24 Losartan Potassium (Losartan Potassium) 100 Mg Tablet, 100 MG PO DAILY, TAB 02/29/24 Past Medical History Past Medical History: Diabetes-Type II, Hypertension, Renal Disese Medical History Other: HEMODIALYSIS Past Surgical History: Other, LAVA Surgical History Other: MULTIPLE TOE AMPUTATION Family History Family History: DM, HTN Social History Social History: Negative, Lives with family ROS Dictation CONSTITUTIONAL: No chills, no fever, no weakness, no diaphoresis, no malaise. HEAD/FACE: No signs of trauma. EENT: No eye pain, no blurred vision, no tearing, no double vision, no ear pain, no ear discharge, no nose pain, no nasal congestion, no throat pain, no throat swelling, no mouth pain. RESPIRATORY: No cough, no orthopnea, no SOB, no stridor, no wheezing. CARDIOVASCULAR: No chest pain, no edema, no palpitations, no syncope. GASTROINTESTINAL/ABDOMINAL: Generalized abdominal pain and vomiting GENITOURINARY: No abnormal discharge, no dysuria, no frequent urination, no hematuria. No complaints of pain in the genitals. MUSCULOSKELETAL: No back pain, no gout, no joint pain, no joint swelling, no muscle pain, no muscle stiffness, no neck pain. INTEGUMENTARY: No change in color, no change in hair/nails, no dryness, no lesion, no lumps, no rash. NEUROLOGICAL/PSYCH: No anxiety, not depressed, no emotional problem, no headache, no numbness, no pre-existing deficit, no history of seizures, no tremors, no weakness. HEMATOLOGIC/LYMPHATIC: Not anemic, no history of blood clots, no apparent bleeding, no bruising, glands not swollen. All Systems Negative, Except as Noted. Physical Exam Physical Exam Dictation VITAL SIGNS: Reviewed. GENERAL APPEARANCE: Alert, oriented x3, no acute distress, obese. HEAD AND FACE: Non-traumatic. EYES: PERRL, pink conjunctivas, eyelid no trauma, anterior chamber clear. EARS: Pinnas intact and no signs of trauma or erythema. Ear canals clear and no discharge. TMs no erythema. NOSE: No discharge, no bleeding. OROPHARYNX: Mouth normal, teeth no caries, tongue pink. Pharynx clear, no erythema. Tonsils no exudates, no abscesses noted. Mucous membrane moist. NECK: Supple, non-tender, no thyromegaly, no masses, no JVD, no bruits. BREAST: Deferred. CHEST: No tenderness, no crepitus, no paradoxical movement, no retractions. LUNGS: Clear, well-ventilated, symmetric, no rales, no wheezing, no rhonchi, no stridor, good breath sounds bilaterally. HEART: Regular rate, regular rhythm, no murmur, no gallops. VASCULAR: No peripheral edema. ABDOMEN: Generalized abdominal tenderness RECTAL: Deferred. GENITAL: Deferred. NEUROLOGICAL: Normal speech, gross motor function intact, gross sensory function intact. MUSCULOSKELETAL: Left arm Lava intact EXTREMITIES: Nontender, full range of motion. SKIN: Color pink, dry, no turgor, no rash, no lacerations, no abrasions, no contusions. LYMPHATICS: Deferred. Results Laboratory and Microbiology Lab and Micro Result Laboratory Tests Test 08/31/24 16:08 White Blood Count 10.5 K/uL (4.8-10.8) Red Blood Count 3.72 MIL/uL (4.50-6.20) L Hemoglobin 11.4 g/dL (14.0-18.0) L Hematocrit 34.3 % (42-54) L Mean Corpuscular Volume 92.2 fL (79-99) Mean Corpuscular Hemoglobin 30.6 pg (27.0-33.0) Mean Corpuscular Hemoglobin Concent 33.2 g/dL (32.0-36.0) Red Cell Distribution Width 13.8 % (11.0-15.5) Platelet Count 226 K/uL (130-400) Mean Platelet Volume 10.3 fL (7.5-10.5) Immature Granulocyte % (Auto) 1.0 % (0-1) Neutrophils (%) (Auto) 79.4 % (40.0-77.0) H Lymphocytes (%) (Auto) 9.9 % (21.0-51.0) L Monocytes (%) (Auto) 8.3 % (3.0-13.0) Eosinophils (%) (Auto) 0.9 % (0.0-8.0) Basophils (%) (Auto) 0.5 % (0.0-5.0) Neutrophils # (Auto) 8.4 K/uL (1.8-7.7) H Lymphocytes # (Auto) 1.0 K/uL (1.0-4.8) Monocytes # (Auto) 0.9 K/uL (0.1-1.0) Eosinophils # (Auto) 0.09 K/uL (0.00-0.70) Basophils # (Auto) 0.05 K/uL (0.00-0.20) Absolute Immature Granulocyte (auto 0.10 K/uL (0-1) Nucleated Red Blood Cells 0.0 % (0.0-0.19) White Cell Morphology Comment See comments Sodium Level 131 mmol/L (136-145) L Potassium Level 5.6 mmol/L (3.5-5.1) H Chloride Level 90 mmol/L (101-111) *L Carbon Dioxide Level 34 mmol/L (21-32) H Blood Urea Nitrogen 79 mg/dL (7-18) *H Creatinine 10.6 mg/dL (0.5-1.3) *H Glomerular Filtration Rate Calc 5 mL/min (>90) Random Glucose 269 mg/dL (70-105) H Total Calcium 10.4 mg/dL (8.5-10.1) H Total Bilirubin 0.4 mg/dL (0.2-1.0) Direct Bilirubin 0.1 mg/dL (0.0-0.3) Aspartate Amino Transf (AST/SGOT) 17 U/L (10-37) Alanine Aminotransferase (ALT/SGPT) 21 U/L (12-78) Alkaline Phosphatase 89 U/L (50-136) Total Protein 7.5 g/dL (6.0-8.3) Albumin 3.1 g/dL (3.5-5.0) L Lipase 122 U/L (16-77) H MDM CC: Generalized abdominal pain with nausea x2 days Historian: Patient Comorbidities: ESRD, dialysis dependent, gastritis, hypertension, kidney disease, other Differential diagnosis includes surgical pathology gastritis, pancreatitis, biliary pathology, sepsis, other. Initial blood pressure elevated to 223/84. This improved in the ER with treatment. Other vital signs stable and remained stable. Labs (ordered and independently interpreted by me): No leukocytosis. Hemoglobin 9.4. Left shift no bands. Chemistry shows a sodium 131 potassium 5.6 baseline for patient has gone to dialysis tomorrow. BUN 79 creatinine 10.6. Liver enzymes normal. lipase normal. CT scan of the abdomen and pelvis with contrast per my independent interpretation: No surgical pathology major abnormalities. Here in the ER patient received IV morphine IV Zofran for pain control. Re-evaluation: Patient is completely pain-free. Patient prefers to go home. He has gone to dialysis in the morning His symptoms are consistent with a gastritis, we will start on famotidine and Protonix and recommend diet modification. Recommend PCP follow up. Patient is agreeable to plan. REASON: pain ORDERING PHYSICIAN: HANANE MENG DO PROCEDURE: ABD PEL W - CT ABDOMEN/PELVIS W/CONTRAST Exam Type: CT ABDOMEN/PELVIS W/CONTRAST Clinical Information: pain Comparison: None Contrast: 100 cc's Isovue 370 IV, no complications or adverse reactions CT Dose Index (CTDI): 31.60 mGy Dose Length Product (DLP): 1740.80 total mGy-cm Findings: No evidence of nephro or ureterolithiasis is found. No hydronephrosis or ureteral dilatation is seen. Bilateral renal atrophy seen. The lung bases are clear. The stomach is unremarkable. It shows no wall thickening. No gross ulceration is seen. It is not overly distended. There are no surrounding inflammatory changes. No wall lesions are identified to suggest cancer. The spleen is unremarkable. It is not enlarged. The pancreas shows normal anatomy. It is not fatty replaced. It shows no lesions. The pancreatic duct is not dilated. The gallbladder is unremarkable. It shows no cholelithiasis. The gallbladder wall is normal in thickness. There is no pericholecystic fluid. The is no acute or chronic inflammation noted. The adrenal glands are unremarkable. There is no enlargement. No lesions are noted. The liver is unremarkable. It shows no focal masses. The appendix is unremarkable. It shows no evidence of inflammation. No appendicolith is seen. The small bowel is unremarkable. There is no evidence of dilatation to suggest obstruction. No evidence of adynamic ileus is seen. There is no small bowel wall thickening to suggest enteritis. The colon is unremarkable. The urinary bladder is unremarkable. There is no wall thickening to suggest tumor or inflammation. There are no intraluminal calculi. There are no diverticula. There is no evidence of chronic bladder outlet obstruction. There is no evidence of urinary bladder distention to suggest urinary retention. The other pelvic structures are unremarkable. The bony and vascular structures are unremarkable for the patient's age. IMPRESSION: NEGATIVE CT SCAN OF THE ABDOMEN AND PELVIS WITH ORAL AND IV CONTRAST. ED Course Orders Procedure Category Date Status Time Vital Signs Per CPOE 08/31/24 Transmitted Routine 15:50 Saline Lock Iv CPOE 08/31/24 Transmitted 15:50 Cbc With Differential LAB 08/31/24 Complete 15:50 Lipase LAB 08/31/24 Complete 15:50 Urinalysis Profile LAB 08/31/24 Logged 15:50 Basic Metabolic Panel LAB 08/31/24 Complete 15:50 0.9%Nacl 1000ml (Ns PHA 08/31/24 Complete 1000ml) 16:00 Ondansetron 4mg Inj PHA 08/31/24 Complete (Zofran 4mg Inj) 16:00 Morphine 4mg Syg PHA 08/31/24 Complete (Morphine 4mg Syg) 16:30 Ct Abdomen/Pelvis CT 08/31/24 Resulted W/Contrast 16:13 Hepatic Function Panel LAB 08/31/24 Complete 16:08 Iohexol (Omnipaque) PHA 08/31/24 Complete 17:05 Current Medications Medications (Trade) Dose Ordered Sig/Elias Route PRN Reason Start Time Stop Time Status Last Admin Dose Admin Iohexol (Omnipaque) 75 ml STK-MED ONCE IV 08/31/24 17:05 08/31/24 17:05 DC Morphine Sulfate (morPHINE 4MG SYG) 4 mg ONCE ONCE IVP 08/31/24 16:30 08/31/24 16:31 DC 08/31/24 16:18 Ondansetron HCl (zoFRAN 4MG INJ) 4 mg ONCE ONCE IVP 08/31/24 16:00 08/31/24 16:01 DC 08/31/24 16:17 Sodium Chloride 1,000 ml @ 0 mls/hr ONCE ONCE IV 08/31/24 16:00 08/31/24 16:14 DC Vital Signs Date Time Temp Pulse Resp B/P (MAP) Pulse Ox O2 Delivery O2 Flow Rate FiO2 08/31/24 16:25 98.1 76 18 223/84 97 Room Air* 0 21 08/31/24 15:45 97.9 80 16 97 Room Air 0 DX & DISP Disposition: Discharge Departure Impression: Primary Impression: Gastritis Additional Impressions: ESRD (end stage renal disease), Hypertension Condition: Stable Scripts Pantoprazole Sodium (Pantoprazole Sodium) 20 Mg Tablet.dr 1 TAB PO BID for 21 Days, #42 TAB 0 Refills Prov: HANANE MENG DO 08/31/24 Additional Instructions: Your symptoms are consistent with a gastritis, or irritation of the lining of the stomach. I recommend diet modification. Avoid spicy foods. Avoid heavy meals. Avoid processed foods. Avoid caffeine and alcohol. Try to stick to a bland diet of small meals for the next couple of weeks. I have prescribed pantoprazole. Take this twice per day for the next 21 days. You can take Tums or Maalox as needed for gastritis type symptoms. These medications are [id number]. Your lab work (CBC, BMP, lipase, liver enzymes) is consistent with needing dialysis. Be sure to go to dialysis tomorrow. Your blood pressure was elevated here in the ER. You received IV hydralazine for this. I recommend you take your home blood pressure medications as prescribed. The CT scan of your abdomen and pelvis shows no acute abnormalities. Please follow up with your primary doctor if you continue with symptoms. Return to the emergency department as needed. Referrals: BRAMBILA,SIDRA MD (PCP) HANANE MENG DO Aug 31, 2024 16:20
[2024-08-31 16:31] LABS: ALBUMIN 3.1 g/dL (3.5-5.0); BILIRUBIN,DIRECT 0.1 mg/dL (0.0-0.3); BILIRUBIN,TOTAL 0.4 mg/dL (0.2-1.0); POTASSIUM 5.6 mmol/L (3.5-5.1); TOTAL PROTEIN, SERUM 7.5 g/dL (6.0-8.3)
[2024-08-31 16:32] LABS: BASOPHILS # (AUTO) 0.05 K/uL (0.00-0.20); BASOPHILS % (AUTO) 0.5 % (0.0-5.0); EOSINOPHILS # (AUTO) 0.09 K/uL (0.00-0.70); EOSINOPHILS % (AUTO) 0.9 % (0.0-8.0); HEMATOCRIT 34.3 % (42-54); LYMPHOCYTES % (AUTO) 9.9 % (21.0-51.0); MEAN CORPUSCULAR HEMOGLOBIN 30.6 pg (27.0-33.0); MEAN CORPUSCULAR HGB CONC 33.2 g/dL (32.0-36.0); MEAN CORPUSCULAR VOLUME 92.2 fL (79-99); MONOCYTES # (AUTO) 0.9 K/uL (0.1-1.0); MONOCYTES % (AUTO) 8.3 % (3.0-13.0); NEUTROPHILS # (AUTO) 8.4 K/uL (1.8-7.7); NEUTROPHILS % (AUTO) 79.4 % (40.0-77.0); PLATELET COUNT (AUTO) 226 K/uL (130-400); RED BLOOD CELL COUNT(AUTO) 3.72 MIL/uL (4.50-6.20); RED CELL DISTRIBUTION WIDTH 13.8 % (11.0-15.5); WHITE BLOOD COUNT (AUTO) 10.5 K/uL (4.8-10.8)
[2024-08-31 16:36] LABS: CREATININE 10.6 mg/dL (0.5-1.3)
[2024-08-31] MEDS ORDERED: IOHEXOL-350 75 ML VIAL IV ONE (17:05)
--- NOTE | 2024-08-31 17:40 | HMCIMG ---
Exam Type: CT ABDOMEN/PELVIS W/CONTRAST Clinical Information: pain Comparison: None Contrast: 100 cc's Isovue 370 IV, no complications or adverse reactions CT Dose Index (CTDI): 31.60 mGy Dose Length Product (DLP): 1740.80 total mGy-cm Findings: No evidence of nephro or ureterolithiasis is found. No hydronephrosis or ureteral dilatation is seen. Bilateral renal atrophy seen. The lung bases are clear. The stomach is unremarkable. It shows no wall thickening. No gross ulceration is seen. It is not overly distended. There are no surrounding inflammatory changes. No wall lesions are identified to suggest cancer. The spleen is unremarkable. It is not enlarged. The pancreas shows normal anatomy. It is not fatty replaced. It shows no lesions. The pancreatic duct is not dilated. The gallbladder is unremarkable. It shows no cholelithiasis. The gallbladder wall is normal in thickness. There is no pericholecystic fluid. The is no acute or chronic inflammation noted. The adrenal glands are unremarkable. There is no enlargement. No lesions are noted. The liver is unremarkable. It shows no focal masses. The appendix is unremarkable. It shows no evidence of inflammation. No appendicolith is seen. The small bowel is unremarkable. There is no evidence of dilatation to suggest obstruction. No evidence of adynamic ileus is seen. There is no small bowel wall thickening to suggest enteritis. The colon is unremarkable. The urinary bladder is unremarkable. There is no wall thickening to suggest tumor or inflammation. There are no intraluminal calculi. There are no diverticula. There is no evidence of chronic bladder outlet obstruction. There is no evidence of urinary bladder distention to suggest urinary retention. The other pelvic structures are unremarkable. The bony and vascular structures are unremarkable for the patient's age. IMPRESSION: NEGATIVE CT SCAN OF THE ABDOMEN AND PELVIS WITH ORAL AND IV CONTRAST. This study was performed using dose reduction techniques to include automated exposure control and/or adjustment of the mA and/or kV according to patient size.
[2024-08-31] MEDS ORDERED: PANT20TA18 PO (18:52)
[2024-08-31] MEDS: hydrALAZine 20MG/ML VIAL IV ONE (19:03)
[2024-08-31 19:06] VITALS: BP 253/76; PULSE 77; RESP 18; TEMP 98; O2SAT 97
--- NOTE | 2024-08-31 19:08 | NUR ---
HTN MEDICATION ADMINISTERED TO PATIENT ORDERED, PATIENT TOLERATED WELL, AT THIS TIME ED DOCTOR IS AWARE THAT PATIENTS BLOOD PRESSURE REMAINS HIGH, PATIENT WILL BE DISCHARGED HOME, STATING THAT THE HIGH BLOOD PRESSURE IS HIS BASELINE
[2024-09-01] MEDS ORDERED: SIMV-43 PO (18:29)
[2024-09-01] MEDS ORDERED: METO10TA3 PO (18:29)
[2024-09-01] MEDS ORDERED: ONDA-243 PO (18:29)
[2024-09-01] MEDS ORDERED: CYCL5TAB3 PO (18:29)
[2024-09-01] MEDS ORDERED: PREG150C47 PO (18:29)
[2024-09-01] MEDS ORDERED: SUCR1TAB2 PO (18:29)
[2024-09-03] MEDS ORDERED: AMOX1TAB16 PO (16:39)
== END 2024-08-31 19:14 | disposition home or self-care (01) ==
LOC: EDH 15:43
DX: K29.70 Gastritis, unspecified, without bleeding (principal); I12.0 Hypertensive chronic kidney disease with stage 5 chronic kidney disease or end stage renal disease; E11.22 Type 2 diabetes mellitus with diabetic chronic kidney disease; N18.6 End stage renal disease; Z99.2 Dependence on renal dialysis; Z79.02 Long term (current) use of antithrombotics/antiplatelets; Z79.899 Other long term (current) drug therapy
CPT/HCPCS: 99285; 74177; 96374; 96375; 80076; 80048; 83690; 85025; 36415; J0360; J2405; J2270; Q9967